=== PATIENT | female | born 1970 | race Caucasian/White ===

== ENCOUNTER 2019-07-19 15:12 | Observation (INO) | payer OTHER ==
[2019-07-19] MEDS ORDERED: MORPHINE SULFATE 4 MG/ML SYRINGE IV STA (15:41)
[2019-07-19] MEDS ORDERED: NITROGLYCERIN-D5W PMX 50 MG in DEXTROSE/WATER 1 250ML.BAG IV STA (15:41)
[2019-07-19] MEDS ORDERED: ASPIRIN 81 MG PO STA (15:41)
[2019-07-19 16:00] LABS: Basophils % (A) 0 %; Eosinophils # (A) 0.2 k/uL (0-0.7); Eosinophils % (A) 2 %; HCT 41.3 % (34.0-46.0); HGB 14.5 gm/dL (11.4-16.0); Lymphocytes # (A) 2.6 k/uL (1.0-4.8); Lymphocytes % (A) 26 %; MCH 29.9 pg (25.0-35.0); MCV 85.3 fL (80.0-100.0); Mean Platelet Volume 7.5; Monocytes # (A) 0.5 k/uL (0-1.0); Monocytes % (A) 5 %; Neutrophils # (A) 6.4 k/uL (1.3-7.7); Neutrophils % (A) 65 %; Platelet Count 233 k/uL (150-450); RBC 4.84 m/uL (3.80-5.40); RDW 12.6 % (11.5-15.5); WBC 9.8 k/uL (3.8-10.6)
[2019-07-19 16:09] LABS: ALT 23 U/L (4-34); AST 31 U/L (14-36); African American GFR (CKD) >90 (>60 ml/min/1.73 sqM); Albumin 4.9 g/dL (3.5-5.0); Alkaline Phosphatase 86 U/L (38-126); Anion Gap 10 mmol/L; Blood Urea Nitrogen 8 mg/dL (7-17); Calcium 9.5 mg/dL (8.4-10.2); Carbon Dioxide 21 mmol/L (22-30); Chloride 108 mmol/L (98-107); Glucose 104 mg/dL (74-99); Magnesium 1.8 mg/dL (1.6-2.3); Non-African American GFR(CKD) >90 (>60 ml/min/1.73 sqM); Potassium 4.1 mmol/L (3.5-5.1); Sodium 139 mmol/L (137-145); Total Bilirubin 0.6 mg/dL (0.2-1.3); Total Protein 7.9 g/dL (6.3-8.2)
--- NOTE | 2019-07-19 16:25 | XR ---
EXAMINATION TYPE: XR chest 2V DATE OF EXAM: 07/19/2019 COMPARISON: NONE HISTORY: Chest pain and hypertension. Shortness of breath. TECHNIQUE: Frontal and lateral views of the chest are obtained. FINDINGS: There is no focal air space opacity, pleural effusion, or pneumothorax seen. The cardiac silhouette size is within normal limits. The osseous structures are intact. Mild multilevel degener ative change of the spine. IMPRESSION: No acute cardiopulmonary process.
--- NOTE | 2019-07-19 16:36 | ED ---
Chest Pain HPI - General Chief Complaint: Chest Pain Stated Complaint: chest pain Time Seen by Provider: 07/19/19 15:15 Source: patient Mode of arrival: wheelchair Limitations: no limitations - History of Present Illness Initial Comments: The patient is a 48-year-old female with past medical history of coronary artery disease who presents to the emergency department with reported chest pain. She states the pain has been intermittent since last night. It is located over the left side of her chest and radiates to her left jaw. States the pain is very similar to when she had a heart attack in 2014 and 2018. A prescription for nitro. States that she took a nitro last night and it did improve her symptoms. She then awoke this morning and the pain hasn't reoccurred. She denies it as a ripping or tearing sensation to her back. No fevers or chills. Admits to nausea without vomiting. Also has diaphoresis. Reports that her pain is provoked upon ambulation and exertion. Has not taken any nitro today. She normally sees a mangle feeder out of [facility]. Last cath was in 2018 for which she had 3 stents placed. 2 were in her circumflex and 1 was put in her RCA. Previously had one stent in her RCA from 2013. Her mangle feeder is Dr. Sanchez who is retiring. She denies any lower extremity edema. No calf pain or swelling. No history of congestive heart failure. Denies a history of DVT or PE. Currently takes Plavix. Denies any missed doses. No fevers or chills. There are no other alleviating, precipitating or modifying factors - Related Data Home Medications Medication Instructions Recorded Confirmed Aspirin EC [Ecotrin Low Dose] 81 mg PO DAILY 07/19/19 07/19/19 Buta/APAP/Caf/Cod 81-739-62-30 1 cap PO Q4H PRN 07/19/19 07/19/19 [Fioricet w/Cod 90-494-86-30MG] Clopidogrel [Plavix] 75 mg PO DAILY 07/19/19 07/19/19 Dicyclomine [Bentyl] 20 mg PO ACHS 07/19/19 07/19/19 Pantoprazole Sodium [Protonix] 40 mg PO BID 07/19/19 07/19/19 Previous Rx's Medication Instructions Recorded Atorvastatin [Lipitor] 80 mg PO HS #30 tab 07/21/19 Lisinopril [Zestril] 5 mg PO DAILY #30 tab 07/21/19 Metoprolol Succinate (ER) [Toprol 12.5 mg PO DAILY #30 tab.er.24h 07/21/19 XL] Nicotine 21Mg/24Hr Patch [Habitrol] 1 patch TRANSDERM HS #30 patch 07/21/19 Nitroglycerin Sl Tabs [Nitrostat] 0.4 mg SUBLINGUAL Q5M PRN #25 tab 07/21/19 Allergies Allergy/AdvReac Type Severity Reaction Status Date / Time No Known Allergies Allergy Verified 07/19/19 18:54 Review of Systems ROS Statement: Those systems with pertinent positive or pertinent negative responses have been documented in the HPI. ROS Other: All systems not noted in ROS Statement are negative. EKG Findings - EKG Comments: EKG Findings:: EKG demonstrates a normal sinus rhythm with a ventricular rate of 73. WA interval 160. QRS 92. QTC of 436. Q wave in lead 3. No acute ST segment elevations or depressions. Past Medical History Past Medical History: Myocardial Infarction ([place]) Additional Past Medical History / Comment(s): valve regurgitation. History of Any Multi-Drug Resistant Organisms: None Reported Past Surgical History: Heart Catheterization With Stent Past Psychological History: No Psychological Hx Reported Smoking Status: Current every day smoker Past Alcohol Use History: None Reported Past Drug Use History: None Reported General Exam Limitations: no limitations General appearance: alert, in no apparent distress Head exam: Present: atraumatic, normocephalic, normal inspection Eye exam: Present: normal appearance, PERRL, EOMI. Absent: scleral icterus, conjunctival injection, periorbital swelling ENT exam: Present: normal exam, mucous membranes moist Neck exam: Present: normal inspection. Absent: tenderness, meningismus, lymphadenopathy Respiratory exam: Present: normal lung sounds bilaterally. Absent: respiratory distress, wheezes, rales, rhonchi, stridor Cardiovascular Exam: Present: regular rate, normal rhythm, normal heart sounds. Absent: systolic murmur, diastolic murmur, rubs, gallop, clicks GI/Abdominal exam: Present: soft, normal bowel sounds. Absent: distended, tenderness, guarding, rebound, rigid Extremities exam: Present: normal inspection, full ROM, normal capillary refill. Absent: tenderness, pedal edema, joint swelling, calf tenderness Back exam: Present: normal inspection Neurological exam: Present: alert, oriented X3, CN II-XII intact Psychiatric exam: Present: normal affect, normal mood Skin exam: Present: warm, dry, intact, normal color. Absent: rash Course Vital Signs 07/19/19 07/19/19 07/19/19 15:13 15:38 15:40 Temperature 98.1 F Pulse Rate 80 Pulse Rate [ [employer] ] Respiratory 18 Rate Blood Pressure 182/98 Blood Pressure [Left Arm] O2 Sat by Pulse 100 99 99 Oximetry 07/19/19 07/19/19 07/19/19 15:50 16:00 16:10 Temperature Pulse Rate 77 67 64 Pulse Rate [ [employer] ] Respiratory 21 25 H 33 H Rate Blood Pressure Blood Pressure [Left Arm] O2 Sat by Pulse 98 98 99 Oximetry 07/19/19 07/19/19 07/19/19 16:23 16:30 16:40 Temperature Pulse Rate 73 71 65 Pulse Rate [ [employer] ] Respiratory 22 27 H 19 Rate Blood Pressure Blood Pressure [Left Arm] O2 Sat by Pulse 100 98 99 Oximetry 07/19/19 07/19/19 07/19/19 16:50 17:00 17:10 Temperature Pulse Rate 63 56 L 58 L Pulse Rate [ [employer] ] Respiratory 28 H 17 19 Rate Blood Pressure 161/87 161/87 144/76 Blood Pressure [Left Arm] O2 Sat by Pulse 99 98 Oximetry 07/19/19 07/19/19 07/19/19 17:20 17:30 17:44 Temperature 98.2 F Pulse Rate 73 54 L Pulse Rate [ 64 [employer] ] Respiratory 22 20 18 Rate Blood Pressure 144/76 144/76 Blood Pressure 117/55 [Left Arm] O2 Sat by Pulse 98 92 L 95 Oximetry 07/19/19 17:46 Temperature Pulse Rate Pulse Rate [ 58 L [employer] ] Respiratory Rate Blood Pressure Blood Pressure [Left Arm] O2 Sat by Pulse Oximetry Chest Pain MDM - MDM Upon arrival the patient is placed into room 2. A thorough history and physical exam was performed. Peripheral IV was established. The patient was started on a nitro drip. She is given informal grams of morphine as well. Laboratory studies were conducted. A 12-lead EKG demonstrates no acute EKG changes compared to her previous. Laboratory studies demonstrates a negative first troponin. BNP is 46. Chest x-ray demonstrates no acute cardiac process. The patient was reevaluated and states that her pain has improved on the nitro drip. She currently remains on 5 mcg/min. She reports that her pain has improved to a 3 out of 10. As I am concerned for unstable angina I did initiate the patient on a heparin drip. I did recommend admission in order to trend her troponins have a cardiology consultation. The patient agreed to this area call discuss case with Dr. Adamson who accepted admission. The patient is currently awaiting a bed on the floor Critical Care Time Critical Care Time: Yes Critical Care Time: 35 minutes Disposition Clinical Impression: Chest pain, History of ASCVD, Unstable angina Disposition: ADMITTED IP TO THIS [facility] Condition: Stable Is patient prescribed a controlled substance at d/c from ED?: No Decision to Admit Reason: Admit from EC Decision Date: 07/19/19 Decision Time: 17:03
[2019-07-19] MEDS ORDERED: HEPARIN SODIUM,PORCINE 5,000 UNIT/ML 1 ML VIAL IV ONE (17:02)
[2019-07-19] MEDS ORDERED: HEPARIN SODIUM,PORCINE 5,000 UNIT/ML 1 ML VIAL IV PRN (17:02)
[2019-07-19] MEDS ORDERED: NALOXONE 0.4 MG/ML 1 ML VIAL IV PRN (17:04)
[2019-07-19] MEDS ORDERED: HEPARIN SOD,PORK IN 0.45% NACL 25,000 UNIT in 0.45% NACL 1 250ML.BAG IV SCH (17:15)
[2019-07-19 18:11] LABS: INR 0.9 (<1.2); Partial Thromboplastin Time 21.9 sec (22.0-30.0); Prothrombin Time 9.6 sec (9.0-12.0)
[2019-07-19] MEDS: ATORVASTATIN 40 MG TAB PO SCH (20:18)
[2019-07-19] MEDS: DICYCLOMINE 20 MG TAB PO SCH (20:18)
[2019-07-19] MEDS: PANTOPRAZOLE 40 MG TABLET PO SCH (20:18)
--- NOTE | 2019-07-19 20:42 | P.HPIM ---
History of Present Illness H&P Date: 07/19/19 Chief Complaint: Chest pain History of presenting complaint: This is a pleasant [address] Axel Abrams. 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 Patient had 3 stents placed in 2018 and in 2013. Chronic stable medical conditions include hyperlipidemia, peptic ulcer disease, GERD, bowel spasms. Patient has continued to smoke. Last night patient is started off with the discomfort across the chest and also feeling twinges of pain. Also developed nausea lightheadedness. 2. Nitroglycerin the pain subsided. This morning again had a similar mixture of symptoms. And presented here with a diagnosis of unstable angina. In the ER patient's been IV heparin and nitro drip. Initial troponin was negative Review of systems: GEN.: Tired EYES: None HEENT: Headache after nitroglycerin drip NECK: None RESPIRATORY: As above CARDIOVASCULAR: As above GASTROINTESTINAL: Heartburn GENITOURINARY: None MUSCULOSKELETAL: None LYMPHATICS: None HEMATOLOGICAL: None PSYCHIATRY: None NEUROLOGICAL: None Past medical history to include: Coronary artery disease with 3 stents in 2018 and before that in 2013, hyperlipidemia, peptic ulcer disease, GERD, bowel spasms, valve regurgitation Social history: Lives with her mother and brother. 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 Denies use of any dictation drugs or alcohol. Does smoke less than a pack a day for over 35 years Family history: Reviewed, noncontributory to presentation Physical examination: VITAL SIGNS: 98.1, 80, 18, blood pressure, 182/98, 100% on room air GENERAL: BMI 31.8, laying in bed slightly anxious. EYES: Pupils equal. Conjunctiva normal. HEENT: External appearance of nose and ears normal, oral cavity grossly normal. NECK: JVD not raised; masses not palpable. HEART: First and second heart sounds are normal; no edema. LUNGS: Respiratory rate normal; slightly decreased breath sounds. ABDOMEN: Soft, nontender, liver spleen not palpable, no masses palpable. PSYCH: Alert and oriented x3; mood and affect but anxiousl. NEUROLOGICAL: Cranial nerves grossly intact; no facial asymmetry, power and sensation grossly intact. LYMPHATICS: No lymph nodes palpable in the axilla and neck INVESTIGATIONS, reviewed in the clinical context: White count 9.8 hemoglobin 14.5 platelets 233 potassium 4.1 creatinine 0.56 troponin I less than 0.012 EKG tracing personally reviewed by me-sinus rhythm with nonspecific ST segment changes Chest x-ray film personally reviewed by me-no infiltrates Assessment: -Unstable angina in a patient with known coronary artery disease, with a presentation similar to her prior episode -Coronary artery disease with 3 stents in 2017 and then in 2013 -Obesity BMI 31.8 -Chronic nicotine dependence patient cigarette smoker -Hypertensive urgency -Hyperlipidemia -Peptic ulcer disease -GERD -Chronic bowel spasms -IV heparin monitoring Plan: Cardiology was consulted. Patient is put on IV nitroglycerin drip and IV heparin. Home medications resumed. Care was discussed with the patient. Nicotine patch. Past Medical History Past Medical History: Myocardial Infarction ([place]) Additional Past Medical History / Comment(s): valve regurgitation. Last Myocardial Infarction Date:: 2017 History of Any Multi-Drug Resistant Organisms: None Reported Past Surgical History: Section, Heart Catheterization With Stent, Hysterectomy Date of Last Stent Placement:: unknown Past Psychological History: No Psychological Hx Reported Smoking Status: Current every day smoker Past Alcohol Use History: None Reported Past Drug Use History: None Reported Medications and Allergies Home Medications Medication Instructions Recorded Confirmed Type Aspirin EC [Ecotrin Low Dose] 81 mg PO DAILY 07/19/19 07/19/19 History Atorvastatin [Lipitor] 40 mg PO HS 07/19/19 07/19/19 History Buta/APAP/Caf/Cod 24-954-12-30 1 cap PO Q4H PRN 07/19/19 07/19/19 History [Fioricet w/Cod 47-688-34-30MG] Clopidogrel [Plavix] 75 mg PO DAILY 07/19/19 07/19/19 History Dicyclomine [Bentyl] 20 mg PO ACHS 07/19/19 07/19/19 History Nitroglycerin Sl Tabs [Nitrostat] 0.4 mg SUBLINGUAL Q5M PRN 07/19/19 07/19/19 History Pantoprazole Sodium [Protonix] 40 mg PO BID 07/19/19 07/19/19 History Allergies Allergy/AdvReac Type Severity Reaction Status Date / Time No Known Allergies Allergy Verified 07/19/19 18:54 Physical Exam Vitals: Vital Signs Temp Pulse Pulse Resp BP BP Pulse Ox 07/19/19 19:21 98 F 66 18 129/57 98 07/19/19 18:17 98.1 F 54 L 20 144/76 92 L 07/19/19 17:46 58 L 07/19/19 17:44 98.2 F 64 18 117/55 95 07/19/19 17:30 54 L 20 144/76 92 L 07/19/19 17:20 73 22 144/76 98 07/19/19 17:10 58 L 19 144/76 98 07/19/19 17:00 56 L 17 161/87 07/19/19 16:50 63 28 H 161/87 99 07/19/19 16:40 65 19 99 07/19/19 16:30 71 27 H 98 07/19/19 16:23 73 22 100 07/19/19 16:10 64 33 H 99 07/19/19 16:00 67 25 H 98 07/19/19 15:50 77 21 98 07/19/19 15:40 99 07/19/19 15:38 99 07/19/19 15:13 98.1 F 80 18 182/98 100 Intake and Output 07/19/19 07/19/19 07/19/19 06:59 14:59 22:59 Other: Weight 83.915 kg Results CBC & Chem 7: 07/19/19 15:26 07/19/19 15:51 Labs: Abnormal Lab Results - Last 24 Hours (Table) 07/19/19 07/19/19 Range/Units 15:51 17:35 APTT 21.9 L (22.0-30.0) sec Chloride 108 H (98-107) mmol/L Carbon Dioxide 21 L (22-30) mmol/L Glucose 104 H (74-99) mg/dL
[2019-07-19] MEDS: BUTA/APAP/CAF/COD 50-325-40-30 CAP PO PRN (20:58)
[2019-07-19] MEDS: NICOTINE 21MG/24HR PATCH TRANSDERM SCH (23:06)
[2019-07-20] MEDS: DICYCLOMINE 20 MG TAB PO SCH ×4 (06:24→20:27)
[2019-07-20] MEDS: PANTOPRAZOLE 40 MG TABLET PO SCH ×2 (06:25→17:44)
[2019-07-20 06:27] LABS: Basophils % (A) 1 %; Eosinophils # (A) 0.2 k/uL (0-0.7); Eosinophils % (A) 2 %; HCT 38.6 % (34.0-46.0); HGB 13.2 gm/dL (11.4-16.0); Lymphocytes # (A) 3.1 k/uL (1.0-4.8); Lymphocytes % (A) 35 %; MCH 29.6 pg (25.0-35.0); MCHC 34.1 g/dL (31.0-37.0); MCV 86.9 fL (80.0-100.0); Mean Platelet Volume 7.4; Monocytes # (A) 0.5 k/uL (0-1.0); Monocytes % (A) 5 %; Neutrophils % (A) 56 %; Platelet Count 176 k/uL (150-450); RBC 4.44 m/uL (3.80-5.40); RDW 12.6 % (11.5-15.5)
[2019-07-20 06:35] LABS: INR 0.9 (<1.2); Partial Thromboplastin Time 55.2 sec (22.0-30.0); Prothrombin Time 9.7 sec (9.0-12.0)
[2019-07-20 07:28] LABS: African American GFR (CKD) >90 (>60 ml/min/1.73 sqM); Anion Gap 8 mmol/L; Blood Urea Nitrogen 14 mg/dL (7-17); Calcium 8.9 mg/dL (8.4-10.2); Carbon Dioxide 22 mmol/L (22-30); Chloride 108 mmol/L (98-107); Glucose 104 mg/dL (74-99); Non-African American GFR(CKD) >90 (>60 ml/min/1.73 sqM); Potassium 4.4 mmol/L (3.5-5.1); Sodium 138 mmol/L (137-145)
[2019-07-20] MEDS: BUTA/APAP/CAF/COD 50-325-40-30 CAP PO PRN ×2 (08:01→20:27)
--- NOTE | 2019-07-20 08:40 | P.CRDCN ---
History of Present Illness Consult date: 07/20/19 Requesting physician: Boris Adamson Consult reason: chest pain Chief complaint: Chest pain History of present illness: This is a 48 year old female with known history of coronary artery disease, she had a myocardial infarction in 2013 at which time she underwent RCA stenting, in 2018 she had a subsequent myocardial infarction and at that time underwent successful percutaneous transluminal coronary artery angioplasty with stenting of the circumflex artery. She has history of hyperlipidemia, hypertension, strong family history of premature coronary artery disease, and she continues to smoke a half a pack of cigarettes per day. She presents to the hospital on this admission with symptoms of midsternal chest tightness with associated shortness of breath. She also states that she gets intermittent poking pains in the chest. Patient does have a history of migraines and this m orning is complaining of a migraine headache, at this present time her chest pain has dissipated. EKG shows a normal sinus rhythm with nonspecific ST-T wave changes. Chest x-ray does not reveal any acute cardiopulmonary process. Blood pressure 146/80 with a heart rate in the 60s, 94% on room air. White blood cell count 9.0, hemoglobin 13.2, platelet count 176. Sodium 138, potassium 4.4, BUN 14, creatinine 0.6, magnesium 1.8. Troponins negative 3. Past Medical History Past Medical History: Myocardial Infarction ([place]) Additional Past Medical History / Comment(s): valve regurgitation. Last Myocardial Infarction Date:: 2017 History of Any Multi-Drug Resistant Organisms: None Reported Past Surgical History: Section, Heart Catheterization With Stent, Hysterectomy Date of Last Stent Placement:: unknown Past Psychological History: No Psychological Hx Reported Smoking Status: Current every day smoker Past Alcohol Use History: None Reported Past Drug Use History: None Reported Medications and Allergies Home Medications Medication Instructions Recorded Confirmed Type Aspirin EC [Ecotrin Low Dose] 81 mg PO DAILY 07/19/19 07/19/19 History Atorvastatin [Lipitor] 40 mg PO HS 07/19/19 07/19/19 History Buta/APAP/Caf/Cod 29-346-37-30 1 cap PO Q4H PRN 07/19/19 07/19/19 History [Fioricet w/Cod 10-610-38-30MG] Clopidogrel [Plavix] 75 mg PO DAILY 07/19/19 07/19/19 History Dicyclomine [Bentyl] 20 mg PO ACHS 07/19/19 07/19/19 History Nitroglycerin Sl Tabs [Nitrostat] 0.4 mg SUBLINGUAL Q5M PRN 07/19/19 07/19/19 History Pantoprazole Sodium [Protonix] 40 mg PO BID 07/19/19 07/19/19 History Allergies Allergy/AdvReac Type Severity Reaction Status Date / Time No Known Allergies Allergy Verified 07/19/19 18:54 Physical Exam Vitals: Vital Signs Temp Pulse Pulse Resp BP BP Pulse Ox 07/20/19 04:00 98.1 F 69 18 147/82 94 L 07/20/19 00:00 97.9 F 67 18 111/57 07/19/19 23:00 66 18 07/19/19 20:00 98.2 F 64 18 117/55 07/19/19 19:21 98 F 66 18 129/57 98 07/19/19 18:17 98.1 F 54 L 20 144/76 92 L 07/19/19 17:46 58 L 07/19/19 17:44 98.2 F 64 18 117/55 95 07/19/19 17:30 54 L 20 144/76 92 L 07/19/19 17:20 73 22 144/76 98 07/19/19 17:10 58 L 19 144/76 98 07/19/19 17:00 56 L 17 161/87 07/19/19 16:50 63 28 H 161/87 99 07/19/19 16:40 65 19 99 07/19/19 16:30 71 27 H 98 07/19/19 16:23 73 22 100 07/19/19 16:10 64 33 H 99 07/19/19 16:00 67 25 H 98 07/19/19 15:50 77 21 98 07/19/19 15:40 99 07/19/19 15:38 99 07/19/19 15:13 98.1 F 80 18 182/98 100 Intake and Output 07/19/19 07/20/19 07/20/19 22:59 06:59 14:59 Intake Total 177.473 0 Balance 177.473 0 Intake: Intake, IV Titration 57.473 Amount Heparin Sod,Pork in 0.45% 45.473 NaCl 25,000 unit In 0.45 % NaCl 1 250ml.bag @ 11. 91 UNITS/KG/HR 9.994 mls/ hr IV .Q24H NNAMDI Rx#: [id number] Nitroglycerin-D5w Pmx 50 12 mg In Dextrose/Water 1 250ml.bag @ 5 MCG/MIN 1.5 mls/hr IV .Q24H STA Rx#: [id number] Oral 120 0 Other: Voiding Method Toilet Toilet # Voids 2 Weight 83.915 kg 84 kg PHYSICAL EXAMINATION: GENERAL: 88-year-old female in no acute distress at the time of my examination HEENT: Head is atraumatic, normocephalic. Pupils equal, round. Sclera anicteric. Conjunctiva are clear. Mucous membranes of the mouth are moist. Neck is supple. There is no elevated jugular venous pressure. No carotid bruit is heard. HEART EXAMINATION: Heart S1 S2 1 systolic murmur is heard CHEST EXAMINATION: Lungs reveal some fine expiratory wheezes ABDOMEN: Soft, nontender. Bowel sounds are heard. No organomegaly noted. EXTREMITIES: 2+ peripheral pulses with no evidence of peripheral edema and no calf tenderness noted. NEUROLOGIC patient is awake, alert and oriented 3 . Complaining of a headache this morning . Results 07/20/19 06:04 07/20/19 06:04 Cardiac Enzymes 07/19/19 07/19/19 07/19/19 Range/Units 15:51 15:51 23:06 AST 31 (14-36) U/L Troponin I <0.012 <0.012 (0.000-0.034) ng/mL 07/20/19 Range/Units 03:30 AST (14-36) U/L Troponin I <0.012 (0.000-0.034) ng/mL Coagulation 07/19/19 07/19/19 07/20/19 Range/Units 17:35 23:06 06:04 PT 9.6 9.7 (9.0-12.0) sec APTT 21.9 L 33.4 H 55.2 H (22.0-30.0) sec CBC 07/19/19 07/20/19 Range/Units 15:26 06:04 WBC 9.8 9.0 (3.8-10.6) k/uL RBC 4.84 4.44 (3.80-5.40) m/uL Hgb 14.5 13.2 (11.4-16.0) gm/dL Hct 41.3 38.6 (34.0-46.0) % Plt Count 233 176 (150-450) k/uL Comprehensive Metabolic Panel 07/19/19 07/20/19 Range/Units 15:51 06:04 Sodium 139 138 (137-145) mmol/L Potassium 4.1 4.4 (3.5-5.1) mmol/L Chloride 108 H 108 H (98-107) mmol/L Carbon Dioxide 21 L 22 (22-30) mmol/L BUN 8 14 (7-17) mg/dL Creatinine 0.56 0.67 (0.52-1.04) mg/dL Glucose 104 H 104 H (74-99) mg/dL Calcium 9.5 8.9 (8.4-10.2) mg/dL AST 31 (14-36) U/L ALT 23 (4-34) U/L Alkaline Phosphatase 86 (38-126) U/L Total Protein 7.9 (6.3-8.2) g/dL Albumin 4.9 (3.5-5.0) g/dL Current Medications Generic Name Dose Route Start Last Admin Trade Name Freq PRN Reason Stop Dose Admin Acetam/Butalbital/Caffeine/Codeine 1 each 07/19/19 19:13 07/20/19 08:01 Fioricet W/Codeine PO 1 each Q4H PRN Administration Migraine Headache Atorvastatin Calcium 40 mg 07/19/19 21:00 07/19/19 20:18 Lipitor PO 40 mg HS NNAMDI Administration Clopidogrel Bisulfate 75 mg 07/20/19 09:00 Plavix PO DAILY NNAMDI Dicyclomine HCl 20 mg 07/19/19 21:00 07/20/19 06:24 Bentyl PO 20 mg ACHS NNAMDI Administration Heparin Sodium (Porcine) 0 unit 07/19/19 17:02 Heparin IV PER PROTOCOL PRN Low PTT Protocol Nitroglycerin/Dextrose 50 mg/ 250 mls @ 1.5 mls/hr 07/19/19 15:41 07/19/19 16:38 IV Solution IV 07/20/19 15:40 5 mcg/min .Q24H STA 1.5 mls/hr Administration Protocol 5 MCG/MIN Heparin Sodium/Sodium Chloride 250 mls @ 9.994 mls/hr 07/19/19 17:15 07/20/19 00:08 25,000 unit/ Sodium Chloride IV 15 units/kg/hr .Q24H NNAMDI 12.587 mls/hr Titration Protocol 11.91 UNITS/KG/HR Naloxone HCl 0.2 mg 07/19/19 17:04 Narcan IV Q2M PRN Opioid Reversal Nicotine 1 patch 07/19/19 21:00 07/19/19 23:06 Habitrol 21mg/24hr Patch TRANSDERM Not Given HS NNAMDI Pantoprazole Sodium 40 mg 07/19/19 21:00 07/20/19 06:25 Protonix PO 40 mg AC-BID NNAMDI Administration Intake and Output 07/19/19 07/20/19 07/20/19 22:59 06:59 14:59 Intake Total 177.473 0 Balance 177.473 0 Intake: Intake, IV Titration 57.473 Amount Heparin Sod,Pork in 0.45% 45.473 NaCl 25,000 unit In 0.45 % NaCl 1 250ml.bag @ 11. 91 UNITS/KG/HR 9.994 mls/ hr IV .Q24H NNAMDI Rx#: [id number] Nitroglycerin-D5w Pmx 50 12 mg In Dextrose/Water 1 250ml.bag @ 5 MCG/MIN 1.5 mls/hr IV .Q24H STA Rx#: [id number] Oral 120 0 Other: Voiding Method Toilet Toilet # Voids 2 Weight 83.915 kg 84 kg 07/20/19 06:04 07/20/19 06:04 EKG Interpretations (text) EKG shows a normal sinus rhythm with no acute changes. Assessment and Plan Plan: Assessment and plan #1 symptoms of chest tightness with associated shortness of breath, possible unstable angina. EKG shows normal sinus rhythm with no acute changes. Troponins negative 3. #2 known history of coronary artery disease with prior stenting of the circumflex and RCA #3 nicotine dependence #4 hyperlipidemia #5 strong family history of premature coronary artery disease #6 history of migraine headaches #7 GERD Plan We will obtain an echocardiogram with Doppler study, start the patient on an aspirin daily, continue Plavix, Lipitor, discontinue the nitroglycerin drip secondary to severe headache this morning, if the blood pressure and heart rate tolerate, we will start the patient on a low-dose beta megan. Patient has been advised to undergo cardiac catheterization, the risks and the benefits were explained to the patient in detail and she is willing to proceed. Further recommendations will be based on those findings and the patient's clinical course. DNP note has been reviewed, I agree with a documented findings and plan of care. Patient was seen and examined.
[2019-07-20] MEDS ORDERED: ASPIRIN 325 MG TAB PO STA ×2 (09:42→09:51)
[2019-07-20] MEDS ORDERED: NITROGLYCERIN SL TABS 0.4 MG TAB SUBLINGUAL PRN ×2 (09:51→11:41)
[2019-07-20] MEDS ORDERED: ALPRAZolam 0.25 MG TAB PO PRN (09:51)
[2019-07-20] MEDS ORDERED: SODIUM CHLORIDE 0.9% 1,000 ML in EMPTY BAG 1 BAG IV ONE (09:51)
[2019-07-20] MEDS ORDERED: ALPRAZolam 0.5 MG TAB PO PRN (09:51)
[2019-07-20] MEDS ORDERED: ATORVASTATIN 80 MG TAB PO STA (09:51)
[2019-07-20] MEDS: METOPROLOL SUCCINATE (ER) 25 MG TAB.ER.24H PO SCH (10:14)
[2019-07-20] MEDS: CLOPIDOGREL 75 MG TAB PO SCH (10:14)
[2019-07-20] MEDS: ASPIRIN 81 MG PO SCH (10:15)
[2019-07-20] MEDS ORDERED: MIDAZOLAM 2 MG/2 ML VIAL IV ONE (11:00)
[2019-07-20] MEDS ORDERED: LIDOCAINE 1% INJ 10MG/ML (20 ML MDV) SQ ONE (11:05)
[2019-07-20] MEDS ORDERED: MIDAZOLAM 2 MG/2 ML VIAL IVP ONE (11:07)
[2019-07-20] MEDS: fentaNYL (PF) 50 MCG/ML 2 ML AMP IV ONE ×2 (11:07→11:53)
[2019-07-20] MEDS ORDERED: IV FLUID CONTINUATION 500 ML IV ONE (11:08)
[2019-07-20] MEDS ORDERED: BIVALIRUDIN 250 MG in SODIUM CHLORIDE 0.9% 50 ML IV ONE (11:19)
[2019-07-20] MEDS ORDERED: BIVALIRUDIN BOLUS 250 MG/50 ML IV ONE (11:19)
[2019-07-20] MEDS ORDERED: CLOPIDOGREL 75 MG TAB PO ONE (11:21)
[2019-07-20] MEDS ORDERED: IOPAMIDOL-370 125ML BTL INJ ONE (11:33)
[2019-07-20] MEDS ORDERED: NITROGLYCERIN SL TABS 0.4 MG TAB SUBLINGUAL ONE (11:36)
[2019-07-20] MEDS ORDERED: ATROPINE SULFATE 0.1 MG/ML 10ML SYRINGE IV PRN (11:41)
[2019-07-20] MEDS ORDERED: MAG HYDROX/AL HYDROX/SIMETH 30 ML CUP PO PRN (11:41)
[2019-07-20] MEDS ORDERED: ZOLPIDEM 5 MG TAB PO PRN (11:41)
[2019-07-20] MEDS ORDERED: RX INFO: IV CONTRAST WAS GIVEN 1 EACH MISC MISCELLANE PRN (11:41)
[2019-07-20] MEDS ORDERED: SODIUM CHLORIDE 0.9% 1,000 ML IV SCH (11:45)
--- NOTE | 2019-07-20 11:52 | P.PCN ---
Date of Procedure: 07/20/19 Operative Findings: CARDIAC CATHETERIZATION AND PERCUTANEOUS CORONARY INTERVENTION PERFORMING PHYSICIAN: Sheng Charles MD, RPVI PROCEDURE PERFORMED: 1. Selective right and left coronary angiogram 2. Left heart catheterization 3. Successful stenting of the ostial left circumflex (LCx) using 3.5 x 15 mm Xience SOFIA with an excellent angiographic results. INDICATION: This is a very pleasant 48-year-old female patient who used to be seen by a pay agent out of the town presented to the hospital with chest discomfort and without for acute coronary event. She was seen by Dr. VC Gerard who recommended proceeding with coronary angiogram giving her symptoms which are suggestive of angina. The patient is known to have coronary artery disease and prior stenting of the RCA and LCx. COMPLICATION: None APPROACH: Right common femoral artery LEVEL OF SEDATION: Moderate with a sedation duration of 39 minutes PROCEDURE DESCRIPTION: After obtaining an informed consent, the patient was brought to cardiac director of cardiac cath lab. Local anesthesia was performed using lidocaine subcutaneously. The right common femoral artery was cannulated using Seldinger technique, the guidewire passed easily, following that we advanced a 6 Setswana sheath dilator assembly, the wire and dilator were removed and sheath was flushed. Selective right and left coronary angiogram using a 6-Setswana JR4 and JL catheters. Following that we did left heart catheterization using 6-Setswana pigtail c atheter. After that I did intervene on the LCx. The procedure was completed there was no complication. SELECTIVE CORONARY ANGIOGRAM: The right coronary artery: Is a large caliber vessel and a dominant vessel. The proximal RCA has in-stent restenosis appeared to be in the range of 70%. The mid RCA is a stented and the stent is patent. The RCA distally appeared to be angiographically normal and bifurcates into PDA and PLV branches both appeared to be angiographically normal Left main: Is angiographically normal. Bifurcates into LCx and LAD The left circumflex: Is a large caliber vessel and nondominant vessel. The ostial LCx has a lesion appeared to be in the range of 95% and seems to be in-stent restenosis. The mid LCx appears to be normal. The LCx in the midportion gives rises into the first OM branch which has a critical lesion in its ostium but the artery itself appears to be a small caliber vessel. The distal LCx appears to be angiographically normal. The left anterior descending artery: The proximal LAD appears to have mild disease only. It gives rises into a medium size diagonal branch which seems to have mild disease only. The mid LAD appears to have a lesion in the range of 60-70%. The LAD distally appears to be angiographically normal. HEMODYNAMICS: The LVEDP was 10-12 mmHg without significant gradient across aortic valve PCI OF THE LCX: Anticoagulation was achieved with Angiomax. Subsequently I did engage the left main using JL4 guide. I did wire the LCx using a run-through wire. I did predilatation using 2 5 x 10 mm angiosculp balloon. After that I deployed 3.5 x 15 mm Xience SOFIA where the stent was positioned under fluoroscopy guidance and deployed under 16 alan for 20 seconds. The following angiogram showed an excellent angiographic results and the procedure was completed without any complications CONCLUSION: 1. Severe in-stent restenosis involving the proximal RCA. 2. Critical in-stent restenosis involving the ostial LCx 3. Intermediate to severe disease involving the mid to distal LAD. I did successful stenting of the ostial LCx with an excellent angiographic results POSTPROCEDURE MANAGEMENT: 1. Medical treatment 2. Dual antiplatelet therapy 3. Standard groin care 4. Follow-up with the patient 5. PCI of the RCA
--- NOTE | 2019-07-20 12:06 | ECHOF ---
Referral Reason:assess lvf MEASUREMENTS -------- HEIGHT: 162.6 cm WEIGHT: 83.9 kg BP: IVSd: 1.6 cm (0.6 - 1.1) LVIDd: 3.7 cm (3.9 - 5.3) LVPWd: 1.4 cm (0.6 - 1.1) IVSs: 1.5 cm LVIDs: 2.9 cm LVPWs: 1.9 cm LAESV Index (A-L): 11.29 ml/m Ao Diam: 2.6 cm (2.0 - 3.7) AV Cusp: 2.1 cm (1.5 - 2.6) LA Diam: 2.2 cm (2.7 - 3.8) MV EXCURSION: 15.271 mm (> 18.000) MV EF SLOPE: 89 mm/s (70 - 150) EPSS: 0.9 cm MV E Jose M: 0.98 m/s MV DecT: 252 ms MV A Jose M: 0.78 m/s MV E/A Ratio: 1.24 AR PHT: 701 ms RAP: 15.00 mmHg RVSP: 43.58 mmHg FINDINGS -------- Sinus rhythm. This was a technically good study. The left ventricular size is normal. There is moderate concentric left ventricular hypertrophy. T here is normal global left ventricular contractility. Overall left ventricular systolic function is low-normal with, an EF between 50 - 55 %. The diastolic filling pattern is normal for the age of t he patient 12.98. The right ventricle is normal in size. The left atrial size is normal. Normal LA size by volume 22+/-6 ml/m2. The right atrial size is normal. The aortic valve is trileaflet and appears structurally normal. There is moderate aortic regurgitat ion. The mitral valve is normal. Mild mitral regurgitation is present. The tricuspid valve appears structurally normal. Mild tricuspid regurgitation present. There is m ild pulmonary hypertension. The right ventricular systolic pressure, as measured by Doppler, is 43. 58mmHg. There is no pulmonic regurgitation present. The aortic root size is normal. The inferior vena cava is mildly dilated. There is a trivial pericardial effusion present. CONCLUSIONS -------- 1. Sinus rhythm. 2. This was a technically good study. 3. The left ventricular size is normal. 4. There is moderate concentric left ventricular hypertrophy. 5. Overall left ventricular systolic function is low-normal with, an EF between 50 - 55 %. 6. The diastolic filling pattern is normal for the age of the patient 12.98 7. The right ventricle is normal in size. 8. The left atrial size is normal. 9. Normal LA size by volume 22+/-6 ml/m2. 10. The right atrial size is normal. 11. The aortic valve is trileaflet and appears structurally normal. 12. There is moderate aortic regurgitation. 13. The mitral valve is normal. 14. Mild mitral regurgitation is present. 15. The tricuspid valve appears structurally normal. 16. Mild tricuspid regurgitation present. 17. There is mild pulmonary hypertension. 18. The right ventricular systolic pressure, as measured by Doppler, is 43.58mmHg. 19. There is no pulmonic regurgitation present. 20. The aortic root size is normal. 21. The inferior vena cava is mildly dilated. 22. There is a trivial pericardial effusion present. DIE TECHNICIAN: Andria Stout RDCS
[2019-07-20] MEDS ORDERED: HYDROmorphone 0.5 MG/0.5 ML SYRINGE IVP STA (12:36)
[2019-07-20 13:43] VITALS: BMI 31.8
[2019-07-20] MEDS: NITROGLYCERIN OINT 1 INCH/GM PACKET TOPICAL SCH ×2 (14:24→15:55)
[2019-07-20] MEDS: ATORVASTATIN 40 MG TAB PO SCH (20:27)
[2019-07-20] MEDS: NICOTINE 21MG/24HR PATCH TRANSDERM SCH (22:16)
--- NOTE | 2019-07-20 23:29 | P.PN ---
Progress Note - Text Progress Note Date: 07/20/19 Chief Complaint: Chest pain History of presenting complaint: This is a pleasant [address] Axel Abrams. 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 Patient had 3 stents placed in 2018 and in 2014. Chronic stable medical conditions include hyperlipidemia, peptic ulcer disease, GERD, bowel spasms. Patient has continued to smoke. Last night patient is started off with the discomfort across the chest and also feeling twinges of pain. Also developed nausea lightheadedness. 2. Nitroglycerin the pain subsided. This morning again had a similar mixture of symptoms. And presented here with a diagnosis of unstable angina. In the ER patient's been IV heparin and nitro drip. Initial troponin was negative Admitted with unstable angina. Today-underwent cardiac catheterization. Successful stenting of the ostial left circumflex. Postprocedure no chest pain no shortness of breath. Laying in bed Review of systems: Was done for constitutional, cardiovascular, GI, pulmonary. relevant finding as above Active Medications Acetam/Butalbital/Caffeine/Codeine (Fioricet W/Codeine) 1 each PO Q4H PRN PRN Reason: Migraine Headache Last Admin: 07/20/19 20:27 Dose: 1 each Documented by: Al Hydroxide/Mg Hydroxide (Maalox) 30 ml PO Q4HR PRN PRN Reason: Heartburn Alprazolam (Xanax) 0.25 mg PO Q6HR PRN PRN Reason: Mild Anxiety Alprazolam (Xanax) 0.5 mg PO Q6HR PRN PRN Reason: Moderate Anxiety Last Admin: 07/20/19 17:44 Dose: 0.5 mg Documented by: Aspirin (Aspirin) 81 mg PO DAILY [facility] Last Admin: 07/20/19 10:15 Dose: Not Given Documented by: Atorvastatin Calcium (Lipitor) 40 mg PO HS [facility] Last Admin: 07/20/19 20:27 Dose: 40 mg Documented by: Atropine Sulfate (Atropine) 0.5 mg IV ONCE PRN PRN Reason: Symptomatic Bradycardia Clopidogrel Bisulfate (Plavix) 75 mg PO DAILY [facility] Last Admin: 07/20/19 10:14 Dose: 75 mg Documented by: Dicyclomine HCl (Bentyl) 20 mg PO ACHS [facility] Last Admin: 03/20/20 20:27 Dose: 20 mg Documented by: Heparin Sodium (Porcine) (Heparin) 0 unit IV PER PROTOCOL PRN; Protocol PRN Reason: Low PTT Metoprolol Succinate (Toprol Xl) 12.5 mg PO DAILY [facility] Last Admin: 07/20/19 10:14 Dose: 12.5 mg Documented by: Miscellaneous Information (Rx Info: Iv Contrast Was Given) 1 each MISCELLANE DAILY PRN PRN Reason: Per Protocol Stop: 07/22/19 11:41 Naloxone HCl (Narcan) 0.2 mg IV Q2M PRN PRN Reason: Opioid Reversal Nicotine (Habitrol 21mg/24hr Patch) 1 patch TRANSDERM HS [facility] Last Admin: 07/20/19 22:16 Dose: Not Given Documented by: Nitroglycerin (Nitrostat) 0.4 mg SUBLINGUAL Q5M PRN PRN Reason: Chest Pain Last Admin: 07/20/19 12:19 Dose: 0.4 mg Documented by: Nitroglycerin (Nitrostat) 0.4 mg SUBLINGUAL Q5M PRN PRN Reason: Chest Pain Nitroglycerin (Nitro-Bid Oint) 1 inch TOPICAL Q6HR [facility] Last Admin: 07/20/19 15:55 Dose: Not Given Documented by: Pantoprazole Sodium (Protonix) 40 mg PO AC-BID [facility] Last Admin: 07/20/19 17:44 Dose: 40 mg Documented by: Zolpidem Tartrate (Ambien) 5 mg PO HS PRN PRN Reason: Insomnia Physical examination: VITAL SIGNS: 98.2, 67, 16, blood pressure 128/62, 98% on room air GENERAL: Laying in bed, awake. EYES: Pupils equal. Conjunctiva normal. HEENT: External appearance of nose and ears normal, oral cavity grossly normal. NECK: JVD not raised; masses not palpable. HEART: First and second heart sounds are normal; no edema. LUNGS: Respiratory rate normal; slightly decreased breath sounds. ABDOMEN: Soft, nontender, liver spleen not palpable, no masses palpable. PSYCH: Alert and oriented x3; mood and affect but anxiousl. INVESTIGATIONS, reviewed in the clinical context: White count 19 with 30.2 potassium 4.4 Previous testing White count 9.8 hemoglobin 14.5 platelets 233 potassium 4.1 creatinine 0.56 troponin I less than 0.012-3 EKG tracing personally reviewed by me-sinus rhythm with nonspecific ST segment changes Chest x-ray film personally reviewed by me-no infiltrates Assessment: -Unstable angina in a patient with known coronary artery disease, POA -Cardiac catheterization with a stent to circumflex -Coronary artery disease with 3 stents in 2018 and then in 2014 -Obesity BMI 31.8 -Chronic nicotine dependence patient cigarette smoker -Hypertensive urgency -Hyperlipidemia -Peptic ulcer disease -GERD -Chronic bowel spasms -IV heparin monitoring Plan: Patient is status post coronary stent. Continue current medication treatment plan. Care was discussed the patient.
[2019-07-21] MEDS: NITROGLYCERIN OINT 1 INCH/GM PACKET TOPICAL SCH ×2 (00:51→05:27)
[2019-07-21] MEDS: PANTOPRAZOLE 40 MG TABLET PO SCH (05:25)
[2019-07-21] MEDS: DICYCLOMINE 20 MG TAB PO SCH ×2 (05:25→12:35)
[2019-07-21 06:32] LABS: Basophils % (A) 0 %; Eosinophils # (A) 0.2 k/uL (0-0.7); Eosinophils % (A) 2 %; HCT 37.3 % (34.0-46.0); Lymphocytes # (A) 1.9 k/uL (1.0-4.8); Lymphocytes % (A) 25 %; MCH 30.3 pg (25.0-35.0); MCHC 34.9 g/dL (31.0-37.0); MCV 86.9 fL (80.0-100.0); Mean Platelet Volume 7.9; Monocytes # (A) 0.4 k/uL (0-1.0); Monocytes % (A) 5 %; Neutrophils % (A) 66 %; Platelet Count 180 k/uL (150-450); RBC 4.29 m/uL (3.80-5.40); RDW 12.6 % (11.5-15.5); WBC 7.6 k/uL (3.8-10.6)
[2019-07-21 06:39] LABS: INR 0.9 (<1.2); Partial Thromboplastin Time 24.7 sec (22.0-30.0); Prothrombin Time 9.5 sec (9.0-12.0)
[2019-07-21 06:41] LABS: African American GFR (CKD) >90 (>60 ml/min/1.73 sqM); Non-African American GFR(CKD) >90 (>60 ml/min/1.73 sqM)
[2019-07-21] MEDS: CLOPIDOGREL 75 MG TAB PO SCH (09:20)
[2019-07-21] MEDS: METOPROLOL SUCCINATE (ER) 25 MG TAB.ER.24H PO SCH (09:20)
[2019-07-21] MEDS: ASPIRIN 81 MG PO SCH (09:20)
--- NOTE | 2019-07-21 10:07 | P.PN ---
Subjective Progress Note Date: 07/21/19 This is a 48 year old female with known history of coronary artery disease, she had a myocardial infarction in 2013 at which time she underwent RCA stenting, in 2018 she had a subsequent myocardial infarction and at that time underwent successful percutaneous transluminal coronary artery angioplasty with stenting of the circumflex artery. She has history of hyperlipidemia, hypertension, strong family history of premature coronary artery disease, and she continues to smoke a half a pack of cigarettes per day. She presents to the hospital on this admission with symptoms of midsternal chest tightness with associated shortness of breath. She also states that she gets intermittent poking pains in the chest. Patient does have a history of migraines and this morning is complaining of a migraine headache, at this present time her chest pain has dissipated. EKG shows a normal sinus rhythm with nonspecific ST-T wave changes. Chest x-ray does not reveal any acute cardiopulmonary process. Blood pressure 146/80 with a heart rate in the 60s, 94% on room air. White blood cell count 9.0, hemoglobin 13.2, platelet count 176. Sodium 138, potassium 4.4, BUN 14, creatinine 0.6, magnesium 1.8. Troponins negative 3. 07/21/2019 Patient was taken to the cardiac catheterization lab yesterday where she underwent successful stenting of the ostial left circumflex. Patient was also found to have severe in-stent restenosis involving the proximal RCA, intermediate to severe disease in the mid to distal LAD. She was seen and examined this morning, feels well, denies any chest discomfort or breathing difficulty. Her EKG from this morning shows a normal sinus rhythm with no acute changes. I pressure 130/70 with a heart rate of 50, 97% on room air. White blood cell count 7.6, hemoglobin 13, platelet count 180. Objective - Vital Signs Vital signs: Vital Signs Temp 97.8 F 07/21/19 05:14 Pulse 59 L 07/21/19 05:14 Resp 16 07/21/19 05:14 BP 132/76 07/21/19 05:14 Pulse Ox 97 07/21/19 05:14 Intake & Output 07/20/19 07/21/19 07/21/19 18:59 06:59 18:59 Intake Total 349.227 240 Output Total 400 900 Balance -50.773 -660 Weight 84 kg 94.5 kg Intake: IV 220 Intake, IV Titration 129.227 Amount Heparin Sod,Pork in 0.45% 129.227 NaCl 25,000 unit In 0.45 % NaCl 1 250ml.bag @ 11. 91 UNITS/KG/HR 9.994 mls/ hr IV .Q24H [facility] Rx#: [id number] Oral 0 240 Output: Urine 400 900 Other: Voiding Method Toilet # Voids 1 - Exam PHYSICAL EXAMINATION: GENERAL: 88-year-old female in no acute distress at the time of my examination HEENT: Head is atraumatic, normocephalic. Pupils equal, round. Sclera anicteric. Conjunctiva are clear. Mucous membranes of the mouth are moist. Neck is supple. There is no elevated jugular venous pressure. No carotid bruit is heard. HEART EXAMINATION: Heart S1 S2 1 systolic murmur is heard CHEST EXAMINATION: Lungs reveal some fine expiratory wheezes ABDOMEN: Soft, nontender. Bowel sounds are heard. No organomegaly noted. EXTREMITIES: 2+ peripheral pulses with no evidence of peripheral edema and no calf tenderness noted. Right groin soft, no evidence of any hematoma. NEUROLOGIC patient is awake, alert and oriented 3 . - Labs CBC & Chem 7: 07/21/19 05:41 07/21/19 05:41 Assessment and Plan Plan: Assessment and plan #1 symptoms of chest tightness with associated shortness of breath, possible unstable angina. EKG shows normal sinus rhythm with no acute changes. Troponins negative 3. #2 known history of coronary artery disease with prior stenting of the circumflex and RCA #3 nicotine dependence #4 hyperlipidemia #5 strong family history of premature coronary artery disease #6 history of migraine headaches #7 GERD Plan Status post successful stenting of the ostial circumflex, severe in-stent restenosis involving the proximal RCA, intermediate to severe disease involving the mid to distal LAD. We will increase the Lipitor to 80 mg daily, continue baby aspirin, Plavix, add lisinopril 5 mg daily, and continue metoprolol 12-1/2 mg daily. Patient may be able to be discharged home today from our perspective, we'll make her a follow-up appointment to see Dr. Marks in the office post discharge. DNP note has been reviewed, I agree with a documented findings and plan of care. Patient was seen and examined.
[2019-07-21 10:08] VITALS: TEMP 98.2
[2019-07-21 12:28] VITALS: BP 157/81; PULSE 59; RESP 18
--- NOTE | 2019-07-21 19:45 | P.DS ---
Providers Date of admission: 07/19/19 17:04 Expected date of discharge: 07/21/19 Attending physician: Boris Adamson Consults: 07/19/19 17:05 Consult Physician Urgent Consulting Provider: [facility] Consult Reason/Comments: acute chest pain, possible unstable angina, hx ascad Do you want consulting provider notified?: Yes 07/20/19 11:41 Consult Physician Routine Consulting Provider: [facility] Consult Reason/Comments: Post Interventional patient Do you want consulting provider notified?: Already Contacted Primary care physician: Axel Abrams [facility] Course: Chief Complaint: Chest pain History of presenting complaint: This is a pleasant [address] Axel Abrams. 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 Patient had 3 stents placed in 2018 and in 2013. Chronic stable medical conditions include hyperlipidemia, peptic ulcer disease, GERD, bowel spasms. Patient has continued to smoke. Last night patient is started off with the discomfort across the chest and also feeling twinges of pain. Also developed nausea lightheadedness. 2. Nitroglycerin the pain subsided. This morning again had a similar mixture of symptoms. And presented here with a diagnosis of unstable angina. In the ER patient's been IV heparin and nitro drip. Initial troponin was negative Admitted with unstable angina.cardiac catheterization.-Successful stenting of the ostial left circumflex. Today-no chest pain no shortness of breath. Ambulated Consultation: Dr. Marks from cardiology Physical examination: VITAL SIGNS: 98.2, 56, 16, blood pressure 124/72, 96% on room air GENERAL: Sitting up, comfortable EYES: Pupils equal. Conjunctiva normal. HEENT: External appearance of nose and ears normal, oral cavity grossly normal. NECK: JVD not raised; masses not palpable. HEART: First and second heart sounds are normal; no edema. LUNGS: Respiratory rate normal; slightly decreased breath sounds. ABDOMEN: Soft, nontender, liver spleen not palpable, no masses palpable. PSYCH: Alert and oriented x3; mood and affect but anxiousl. INVESTIGATIONS, reviewed in the clinical context: White count 7.6 hemoglobin 13 creatinine 0.68 Previous testing White count 9.8 hemoglobin 14.5 platelets 233 potassium 4.1 creatinine 0.56 troponin I less than 0.012-3 EKG tracing personally reviewed by me-sinus rhythm with nonspecific ST segment changes Chest x-ray film personally reviewed by me-no infiltrates Assessment: -Unstable angina in a patient with known coronary artery disease, POA -Cardiac catheterization with a stent to circumflex -Coronary artery disease with 3 stents in 2018 and then in 2014 -Obesity BMI 31.8 -Chronic nicotine dependence patient cigarette smoker -Hypertensive urgency -Hyperlipidemia -Peptic ulcer disease -GERD -Chronic bowel spasms -IV heparin monitoring Disposition: Home Patient Condition at Discharge: Stable Plan - Discharge Summary Discharge Rx Participant: No New Discharge Prescriptions: New Nicotine 21Mg/24Hr Patch [Habitrol] 1 patch TRANSDERM HS #30 patch Atorvastatin [Lipitor] 80 mg PO HS #30 tab Metoprolol Succinate (ER) [Toprol XL] 12.5 mg PO DAILY #30 tab.er.24h Lisinopril [Zestril] 5 mg PO DAILY #30 tab Continue Pantoprazole Sodium [Protonix] 40 mg PO BID Dicyclomine [Bentyl] 20 mg PO ACHS Clopidogrel [Plavix] 75 mg PO DAILY [place]/APAP/Caf/Cod [id number] [Fioricet w/Cod 68-304-99-30MG] 1 cap PO Q4H PRN PRN Reason: Migraine Headache Aspirin EC [Ecotrin Low Dose] 81 mg PO DAILY Nitroglycerin Sl Tabs [Nitrostat] 0.4 mg SUBLINGUAL Q5M PRN #25 tab PRN Reason: Chest Pain Discontinued Atorvastatin [Lipitor] 40 mg PO HS Discharge Medication List Aspirin EC [Ecotrin Low Dose] 81 mg PO DAILY 07/19/19 [History] [place]/APAP/Caf/Cod [id number] [Fioricet w/Cod 40-618-41-30MG] 1 cap PO Q4H PRN 07/19/19 [History] Clopidogrel [Plavix] 75 mg PO DAILY 07/19/19 [History] Dicyclomine [Bentyl] 20 mg PO ACHS 07/19/19 [History] Pantoprazole Sodium [Protonix] 40 mg PO BID 07/19/19 [History] Atorvastatin [Lipitor] 80 mg PO HS #30 tab 07/21/19 [Rx] Lisinopril [Zestril] 5 mg PO DAILY #30 tab 07/21/19 [Rx] Metoprolol Succinate (ER) [Toprol XL] 12.5 mg PO DAILY #30 tab.er.24h 07/21/19 [Rx] Nicotine 21Mg/24Hr Patch [Habitrol] 1 patch TRANSDERM HS #30 patch 07/21/19 [Rx] Nitroglycerin Sl Tabs [Nitrostat] 0.4 mg SUBLINGUAL Q5M PRN #25 tab 07/21/19 [Rx] Follow up Appointment(s)/Referral(s): Axel Abrams MD [Primary Care Provider] - 1-2 days (Please call for an appointment) Sheng Charles MD [STAFF PHYSICIAN] - 1 Week (Please call on Tuesday to make follow up appointment. ) Patient Instructions/Handouts: Left Heart Catheterization (DC) Activity/Diet/Wound Care/Special Instructions: post cardiac catheterization instructions-report fever, discharge or bleeding from groin site, numbness or tingling or discoloration in one leg or the other, chest pain-keep puncture site clean and dry, shower daily. No driving for 3 days. Support site with a firm hand when you cough or go up stairs. Discharge Disposition: HOME SELF-CARE
[2019-07-21] MEDS ORDERED: ATORVASTATIN 80 MG TAB PO SCH (21:00)
[2019-07-22] MEDS ORDERED: LISINOPRIL 5 MG TAB PO SCH (09:00)
== END 2019-07-21 13:39 | disposition home or self-care (01) ==
LOC: EC 15:12 → 1SOBS 17:04 → 3SCARD 17:27
PROVIDERS: ADMIT Hospitalist; ATTEND Hospitalist
DX: I25.110 Atherosclerotic heart disease of native coronary artery with unstable angina pectoris (principal); T82.855A Stenosis of coronary artery stent, initial encounter; E66.9 Obesity, unspecified; I16.0 Hypertensive urgency; E78.5 Hyperlipidemia, unspecified; K27.9 Peptic ulcer, site unspecified, unspecified as acute or chronic, without hemorrhage or perforation; K21.9 Gastro-esophageal reflux disease without esophagitis; K58.9 Irritable bowel syndrome, unspecified; I10 Essential (primary) hypertension; G43.909 Migraine, unspecified, not intractable, without status migrainosus; I08.3 Combined rheumatic disorders of mitral, aortic and tricuspid valves; I27.20 Pulmonary hypertension, unspecified; E78.00 Pure hypercholesterolemia, unspecified; I25.2 Old myocardial infarction; F17.210 Nicotine dependence, cigarettes, uncomplicated; Z68.31 Body mass index [BMI] 31.0-31.9, adult; Z95.5 Presence of coronary angioplasty implant and graft; Z98.890 Other specified postprocedural states; Z90.710 Acquired absence of both cervix and uterus; Z79.02 Long term (current) use of antithrombotics/antiplatelets; Z79.82 Long term (current) use of aspirin; Z79.899 Other long term (current) drug therapy; Z82.49 Family history of ischemic heart disease and other diseases of the circulatory system
CPT/HCPCS: 96376; 96366 ×3; 96368 ×2; 93005 ×3; 96365; 96375; 99285; 36415; 93306; 93458; 83880; 80053; 80048; 82565; 83735; 84484 ×2; 85025 ×3; 85610 ×3; 85730 ×3; 71046; C9600; G0378 ×3; C1887; C1769 ×3; C1894; C1725; C1874; J2250; J2270; J1644 ×2; J2001; J3010; J0583; J1170; Q9967

== ENCOUNTER 2019-11-24 22:22 | Inpatient (IN) | payer OTHER ==
--- NOTE | 2019-11-24 22:56 | ED ---
Chest Pain HPI - General Chief Complaint: Chest Pain Stated Complaint: Chest pain Time Seen by Provider: 11/24/19 22:56 Source: patient, family Mode of arrival: wheelchair - History of Present Illness Initial Comments: This patient is a 49-year-old woman with history of previous coronary artery disease status post 5 stent placements. Patient states that she had not been feeling well all day, mainly with which she is describing as migraine type symptoms, but then at around 8:30 PM while she was just sitting, she developed substernal chest pains. She states that it also has felt like she can't quite take a full breath. Patient had been told by her accountancy professor, Dr. Marks, that he would probably be placing a stent for a 70% blockage, so she felt she should be evaluated here. The patient denies any other associated symptoms. MD Complaint: chest pain Onset/Timin -: hour(s) Onset: during rest Pain Location: substernal, left chest Pain Radiation: none Severity: moderate Quality: tightness, aching Consistency: constant Improves With: nothing Worsens With: nothing Anginal Symptoms: dyspnea Treatments Prior to Arrival: none - Related Data Home Medications Medication Instructions Recorded Confirmed Aspirin EC [Ecotrin Low Dose] 81 mg PO DAILY 07/19/19 11/25/19 Buta/APAP/Caf/Cod 25-490-25-30 1 cap PO Q4H PRN 07/19/19 11/25/19 [Fioricet w/Cod 34-862-12-30MG] Clopidogrel [Plavix] 75 mg PO DAILY 07/19/19 11/25/19 Dicyclomine [Bentyl] 20 mg PO DAILY 07/19/19 11/25/19 Pantoprazole Sodium [Protonix] 40 mg PO BID 07/19/19 11/25/19 Dicyclomine [Bentyl] 20 mg PO TID PRN 11/25/19 11/25/19 Ubidecarenone [Co Q-10] 200 mg PO DAILY 11/25/19 11/25/19 Previous Rx's Medication Instructions Recorded Atorvastatin [Lipitor] 80 mg PO HS #30 tab 07/21/19 Metoprolol Succinate (ER) [Toprol 12.5 mg PO DAILY #30 tab.er.24h 07/21/19 XL] Nitroglycerin Sl Tabs [Nitrostat] 0.4 mg SUBLINGUAL Q5M PRN #25 tab 07/21/19 lisinopriL [Zestril] 5 mg PO DAILY #30 tab 07/21/19 Allergies Allergy/AdvReac Type Severity Reaction Status Date / Time No Known Allergies Allergy Verified 11/25/19 08:10 Review of Systems ROS Statement: Those systems with pertinent positive or pertinent negative responses have been documented in the HPI. ROS Other: All systems not noted in ROS Statement are negative. Constitutional: Denies: fever, chills Respiratory: Reports: as per HPI, dyspnea. Denies: cough Cardiovascular: Reports: as per HPI, chest pain. Denies: palpitations, dyspnea on exertion, orthopnea, edema, syncope Gastrointestinal: Denies: abdominal pain, nausea, vomiting, diarrhea, constipation, melena, hematochezia Genitourinary: Denies: dysuria, hematuria Musculoskeletal: Denies: back pain Skin: Denies: rash Neurological: Reports: as per HPI, headache. Denies: weakness, numbness, paresthesias Hematological/Lymphatic: Denies: easy bleeding EKG Findings - EKG Results: EKG: interpreted by CAMILLA, sinus rhythm (Rate 76 bpm), normal axis, normal QRS - Blocks, [place], Hypertrophy, ST Abn: Repolarization changes or abnormalities: nonspecific abnormality, ST segment, and/or T wave Past Medical History Past Medical History: Myocardial Infarction ([place]) Additional Past Medical History / Comment(s): valve regurgitation. Last Myocardial Infarction Date:: 2017 History of Any Multi-Drug Resistant Organisms: None Reported Past Surgical History: Heart Catheterization, Heart Catheterization With Stent Date of Last Stent Placement:: unknown Past Psychological History: No Psychological Hx Reported Smoking Status: Current every day smoker Past Alcohol Use History: None Reported Past Drug Use History: None Reported - Past Family History Mother Family Medical History: Myocardial Infarction ([place]) General Exam General appearance: alert, in no apparent distress Head exam: Present: atraumatic, normocephalic Eye exam: Present: normal appearance. Absent: scleral icterus, conjunctival injection ENT exam: Present: normal oropharynx Neck exam: Present: normal inspection Respiratory exam: Present: normal lung sounds bilaterally. Absent: respiratory distress, wheezes, rales, rhonchi, stridor, chest wall tenderness Cardiovascular Exam: Present: regular rate, normal rhythm, normal heart sounds. Absent: systolic murmur, diastolic murmur, rubs, gallop GI/Abdominal exam: Present: soft. Absent: distended, tenderness, guarding, rebound, rigid, mass Extremities exam: Present: normal inspection, normal capillary refill. Absent: pedal edema, calf tenderness Back exam: Present: normal inspection. Absent: CVA tenderness (R), CVA tenderness (L) Neurological exam: Present: alert Skin exam: Present: warm, dry, intact, normal color. Absent: rash Course Vital Signs 11/24/19 11/24/19 22:29 22:53 Temperature 98.5 F Pulse Rate 82 Respiratory 16 18 Rate Blood Pressure 155/80 O2 Sat by Pulse 95 Oximetry Critical Care Time Critical Care Time: Yes (35 minutes) Disposition Clinical Impression: Chest pain Disposition: ADMITTED IP TO THIS HOSP Condition: Good Is patient prescribed a controlled substance at d/c from ED?: No
--- NOTE | 2019-11-24 23:15 | XR ---
EXAMINATION TYPE: XR chest 2V DATE OF EXAM: 11/24/2019 COMPARISON: 07/19/2019 HISTORY: Chest pain TECHNIQUE: 2 views FINDINGS: Heart and mediastinum are normal. Lungs are clear. Diaphragm is normal. Bony thorax appears normal. IMPRESSION: Normal chest. No change.
[2019-11-24] MEDS ORDERED: MORPHINE SULFATE 4 MG/ML SYRINGE IV STA (23:24)
[2019-11-24 23:25] LABS: Basophils # (A) 0.1 k/uL (0-0.2); Basophils % (A) 1 %; Eosinophils # (A) 0.3 k/uL (0-0.7); Eosinophils % (A) 2 %; HCT 40.5 % (34.0-46.0); HGB 13.6 gm/dL (11.4-16.0); Lymphocytes # (A) 2.8 k/uL (1.0-4.8); Lymphocytes % (A) 24 %; MCHC 33.5 g/dL (31.0-37.0); MCV 86.5 fL (80.0-100.0); Mean Platelet Volume 7.7; Monocytes # (A) 0.6 k/uL (0-1.0); Monocytes % (A) 5 %; Neutrophils # (A) 7.9 k/uL (1.3-7.7); Neutrophils % (A) 67 %; Platelet Count 210 k/uL (150-450); RBC 4.68 m/uL (3.80-5.40); RDW 12.5 % (11.5-15.5); WBC 11.8 k/uL (3.8-10.6)
[2019-11-24] MEDS ORDERED: ASPIRIN 81 MG PO STA (23:25)
[2019-11-24 23:28] LABS: ALT 19 U/L (4-34); AST 21 U/L (14-36); African American GFR (CKD) >90 (>60 ml/min/1.73 sqM); Albumin 4.4 g/dL (3.5-5.0); Alkaline Phosphatase 81 U/L (38-126); Anion Gap 9 mmol/L; Blood Urea Nitrogen 11 mg/dL (7-17); Calcium 9.4 mg/dL (8.4-10.2); Carbon Dioxide 21 mmol/L (22-30); Chloride 108 mmol/L (98-107); Glucose 124 mg/dL (74-99); Magnesium 1.8 mg/dL (1.6-2.3); Non-African American GFR(CKD) >90 (>60 ml/min/1.73 sqM); Potassium 3.6 mmol/L (3.5-5.1); Sodium 138 mmol/L (137-145); Total Bilirubin 0.5 mg/dL (0.2-1.3); Total Protein 6.9 g/dL (6.3-8.2)
[2019-11-24] MEDS ORDERED: NITROGLYCERIN SL TABS 0.4 MG TAB SUBLINGUAL PRN (23:29)
[2019-11-24 23:30] LABS: INR 0.9 (<1.2); Partial Thromboplastin Time 24.8 sec (22.0-30.0); Prothrombin Time 9.5 sec (9.0-12.0)
[2019-11-25 06:14] LABS: Cholesterol 191 mg/dL (<200); HDL Cholesterol 26 mg/dL (40-60); LDL Cholesterol,Calculated 89 mg/dL (0-99); Triglycerides 381 mg/dL (<150)
[2019-11-25] MEDS: DICYCLOMINE 20 MG TAB PO SCH ×4 (06:32→21:52)
[2019-11-25] MEDS ORDERED: ASPIRIN 325 MG TAB PO SCH (09:00)
[2019-11-25] MEDS ORDERED: ASPIRIN 81 MG PO SCH (09:00)
[2019-11-25] MEDS ORDERED: METOPROLOL SUCCINATE (ER) 25 MG TAB.ER.24H PO SCH (09:00)
[2019-11-25] MEDS: lisinopriL 5 MG TAB PO SCH (09:41)
[2019-11-25] MEDS: PANTOPRAZOLE 40 MG TABLET PO SCH ×2 (09:41→20:52)
[2019-11-25] MEDS: CLOPIDOGREL 75 MG TAB PO SCH (09:41)
--- NOTE | 2019-11-25 10:50 | P.CRDCN ---
History of Present Illness Consult date: 11/25/19 Consult reason: chest pain History of present illness: The patient is a 49-year-old female with past medical history of coronary artery disease and recently underwent stenting of her left circumflex in June, dyslipidemia, and current smoker who follows in the office with Dr. Marks. She states she has been having chest pressure on and off for the last several weeks, however she had a severe episode while sitting on the couch last evening. She states it is a squeezing sensation in her chest, which causes her to hold her breath and was associated with mild dizziness. She also has been suffering from a migraine for the last 2 days. Coronary angiography from June of this year showed a 70% lesion in her mid LAD in addition to her 99% lesion in her left circumflex which was stented. DIAGNOSTICS: EKG shows sinus mechanism without ST or T-wave changes Chest x-ray shows no acute process Laboratory data review. WBC 11.8, hemoglobin 13.6, hematocrit 40.5, platelet 210, sodium 138, potassium 3.6, BUN 11, creatinine 0.67, magnesium 1.8, AST 21, ALT 19, troponins negative 3, cholesterol 191, triglycerides 381, HDL 26, LDL 89 Echocardiogram from July 2019 shows normal LV function without significant valvular abnormalities PAST MEDICAL HISTORY: Coronary artery disease, myocardial infarction, hypertension, dyslipidemia, current smoker REVIEW OF SYSTEMS: No fever or chills. No cough or expectoration. No diaph oresis. Patient denies dizziness, blurred vision, double vision. Positive headache. Patient denies any stomach discomfort. No nausea, vomiting. No hematochezia. No hematemesis. Denies any black stools or blood in his stools. Denies dysuria or hematuria. No muscle weakness or numbness. Positive for chest pressure. No shortness of breath PHYSICAL EXAMINATION: This is a 49-year-old female in no apparent distress at the time of my examination. She does report a mild headache. HEENT: Head is atraumatic, normocephalic. Pupils are equal, round. Sclerae anicteric. Conjunctivae are clear. Mucous membranes of the mouth are moist. Neck is supple. There is no jugular venous distention. No carotid bruit is heard. CHEST EXAMINATION: Lungs are clear to auscultation. No chest wall tenderness is noted on palpation or with deep breathing. HEART EXAMINATION: Heart regular rate and rhythm. S1, S2 heard. No murmurs, gallops or rub. ABDOMEN: Soft, nontender. Bowel sounds are heard. No organomegaly noted. EXTREMITIES: 2+ peripheral pulses with no evidence of peripheral edema and no calf tenderness noted. NEUROLOGIC EXAMINATION: Patient is awake, alert and oriented x3. FINAL ASSESSMENT AND PLAN: #1 chest discomfort, worsening #2 coronary artery disease, known 70% lesion and mid LAD #3 hypertension #4 dyslipidemia, not at goal #5 current smoker PLAN: We will maximize medical therapy, by increasing metoprolol to 25 mg and adding isosorbide 12-1/2 mg. Start Zetia 10 mg. Continue dual antiplatelet therapy. Patient will undergo coronary angiography within the next 1-2 days. Past Medical History Past Medical History: Myocardial Infarction ([place]) Additional Past Medical History / Comment(s): valve regurgitation. Last Myocardial Infarction Date:: 2017 History of Any Multi-Drug Resistant Organisms: None Reported Past Surgical History: Heart Catheterization, Heart Catheterization With Stent Past Anesthesia/Blood Transfusion Reactions: No Reported Reaction Date of Last Stent Placement:: unknown Past Psychological History: No Psychological Hx Reported Smoking Status: Current every day smoker Past Alcohol Use History: None Reported Past Drug Use History: None Reported - Past Family History Mother Family Medical History: Myocardial Infarction ([place]) Medications and Allergies Home Medications Medication Instructions Recorded Confirmed Type Aspirin EC [Ecotrin Low Dose] 81 mg PO DAILY 07/19/19 11/25/19 History Buta/APAP/Caf/Cod 62-279-54-30 1 cap PO Q4H PRN 07/19/19 11/25/19 History [Fioricet w/Cod 76-101-43-30MG] Clopidogrel [Plavix] 75 mg PO DAILY 07/19/19 11/25/19 History Dicyclomine [Bentyl] 20 mg PO DAILY 07/19/19 11/25/19 History Pantoprazole Sodium [Protonix] 40 mg PO BID 07/19/19 11/25/19 History Atorvastatin [Lipitor] 80 mg PO HS #30 tab 07/21/19 11/25/19 Rx Metoprolol Succinate (ER) [Toprol 12.5 mg PO DAILY #30 tab.er.24h 07/21/19 11/25/19 Rx XL] Nitroglycerin Sl Tabs [Nitrostat] 0.4 mg SUBLINGUAL Q5M PRN #25 tab 07/21/19 11/25/19 Rx lisinopriL [Zestril] 5 mg PO DAILY #30 tab 07/21/19 11/25/19 Rx Dicyclomine [Bentyl] 20 mg PO TID PRN 11/25/19 11/25/19 History Ubidecarenone [Co Q-10] 200 mg PO DAILY 11/25/19 11/25/19 History Allergies Allergy/AdvReac Type Severity Reaction Status Date / Time No Known Allergies Allergy Verified 11/25/19 08:10 Physical Exam Vitals: Vital Signs Temp Pulse Pulse Resp BP BP Pulse Ox 11/25/19 01:58 97.8 F 70 17 136/81 100 11/24/19 22:53 18 11/24/19 22:29 98.5 F 82 16 155/80 95 Intake and Output 11/24/19 11/25/19 11/25/19 22:59 06:59 14:59 Other: Voiding Method Toilet # Voids 1 Weight 79.379 kg 79.379 kg Results 11/24/19 22:57 11/24/19 22:57 Cardiac Enzymes 11/24/19 11/24/19 11/25/19 Range/Units 22:57 22:57 02:56 AST 21 (14-36) U/L Troponin I <0.012 <0.012 (0.000-0.034) ng/mL 11/25/19 Range/Units 05:37 AST (14-36) U/L Troponin I <0.012 (0.000-0.034) ng/mL Coagulation 11/24/19 Range/Units 22:57 PT 9.5 (9.0-12.0) sec APTT 24.8 (22.0-30.0) sec Lipids 11/25/19 Range/Units 05:37 Triglycerides 381 H (<150) mg/dL Cholesterol 191 (<200) mg/dL HDL Cholesterol 26 L (40-60) mg/dL CBC 11/24/19 Range/Units 22:57 WBC 11.8 H (3.8-10.6) k/uL RBC 4.68 (3.80-5.40) m/uL Hgb 13.6 (11.4-16.0) gm/dL Hct 40.5 (34.0-46.0) % Plt Count 210 (150-450) k/uL Comprehensive Metabolic Panel 11/24/19 Range/Units 22:57 Sodium 138 (137-145) mmol/L Potassium 3.6 (3.5-5.1) mmol/L Chloride 108 H (98-107) mmol/L Carbon Dioxide 21 L (22-30) mmol/L BUN 11 (7-17) mg/dL Creatinine 0.67 (0.52-1.04) mg/dL Glucose 124 H (74-99) mg/dL Calcium 9.4 (8.4-10.2) mg/dL AST 21 (14-36) U/L ALT 19 (4-34) U/L Alkaline Phosphatase 81 (38-126) U/L Total Protein 6.9 (6.3-8.2) g/dL Albumin 4.4 (3.5-5.0) g/dL Current Medications Generic Name Dose Route Start Last Admin Trade Name Freq PRN Reason Stop Dose Admin Acetam/Butalbital/Caffeine/Codeine 1 each 11/25/19 08:00 Fioricet W/Codeine PO Q4H PRN Migraine Headache Aspirin 81 mg 11/25/19 09:00 11/25/19 09:41 Aspirin PO 81 mg DAILY [facility] Administration Atorvastatin Calcium 80 mg 11/25/19 21:00 Lipitor PO HS [facility] Clopidogrel Bisulfate 75 mg 11/25/19 09:00 11/25/19 09:41 Plavix PO 75 mg DAILY [facility] Administration Dicyclomine HCl 20 mg 11/25/19 07:30 11/25/19 06:32 Bentyl PO 20 mg ACHS [facility] Administration Famotidine 20 mg 11/25/19 21:00 Pepcid IV Q12HR [facility] Heparin Sodium (Porcine) 5,000 unit 11/25/19 21:00 Heparin SQ Q12HR [facility] Lisinopril 5 mg 11/25/19 09:00 11/25/19 09:41 Zestril PO 5 mg DAILY [facility] Administration Metoprolol Succinate 12.5 mg 11/25/19 09:00 11/25/19 10:15 Toprol Xl PO 12.5 mg DAILY [facility] Administration Nicotine 1 patch 11/25/19 21:00 Habitrol 21mg/24hr Patch TRANSDERM HS [facility] Nitroglycerin 0.4 mg 11/24/19 23:29 Nitrostat SUBLINGUAL Q5M PRN Chest Pain Pantoprazole Sodium 40 mg 11/25/19 09:00 11/25/19 09:41 Protonix PO 40 mg BID [facility] Administration Intake and Output 11/24/19 11/25/19 11/25/19 22:59 06:59 14:59 Other: Voiding Method Toilet # Voids 1 Weight 79.379 kg 79.379 kg 11/24/19 22:57 11/24/19 22:57
[2019-11-25] MEDS ORDERED: MORPHINE SULFATE 2 MG/ML SYRINGE IVP STA (10:56)
[2019-11-25] MEDS: ISOSORBIDE MONONITRATE ER 15 MG TAB PO SCH (13:06)
[2019-11-25] MEDS: EZETIMIBE 10 MG TAB PO SCH (13:06)
[2019-11-25] MEDS: BUTA/APAP/CAF/COD 50-325-40-30 CAP PO PRN ×2 (13:07→22:53)
[2019-11-25] MEDS: ATORVASTATIN 80 MG TAB PO SCH (20:51)
[2019-11-25] MEDS: FAMOTIDINE 20 MG/2 ML VIAL IV SCH (20:52)
[2019-11-25] MEDS: HEPARIN SODIUM,PORCINE 5,000 UNIT/ML 1 ML VIAL SQ SCH (20:52)
[2019-11-25] MEDS: NICOTINE 21MG/24HR PATCH TRANSDERM SCH (21:04)
[2019-11-26] MEDS: DICYCLOMINE 20 MG TAB PO SCH ×4 (06:36→20:57)
[2019-11-26] MEDS ORDERED: ALPRAZolam 0.5 MG TAB PO PRN (08:20)
[2019-11-26] MEDS ORDERED: SODIUM CHLORIDE 0.9% 1,000 ML in EMPTY BAG 1 BAG IV ONE (08:20)
[2019-11-26] MEDS ORDERED: ALPRAZolam 0.25 MG TAB PO PRN (08:20)
[2019-11-26] MEDS ORDERED: ASPIRIN 325 MG TAB PO ONE (08:30)
[2019-11-26] MEDS ORDERED: SODIUM CHLORIDE 0.9% 1,000 ML IV SCH (08:30)
[2019-11-26] MEDS: FAMOTIDINE 20 MG/2 ML VIAL IV SCH ×2 (08:55→20:57)
[2019-11-26] MEDS: PANTOPRAZOLE 40 MG TABLET PO SCH ×2 (08:55→20:57)
[2019-11-26] MEDS: CLOPIDOGREL 75 MG TAB PO SCH (08:55)
[2019-11-26] MEDS: HEPARIN SODIUM,PORCINE 5,000 UNIT/ML 1 ML VIAL SQ SCH ×2 (08:55→20:57)
[2019-11-26] MEDS: EZETIMIBE 10 MG TAB PO SCH (08:56)
[2019-11-26] MEDS: ISOSORBIDE MONONITRATE ER 15 MG TAB PO SCH (08:56)
[2019-11-26] MEDS ORDERED: METOPROLOL SUCCINATE (ER) 25 MG TAB.ER.24H PO SCH (09:00)
[2019-11-26] MEDS ORDERED: IV FLUID CONTINUATION 1,000 ML IV ONE (11:00)
[2019-11-26] MEDS ORDERED: MIDAZOLAM 2 MG/2 ML VIAL IV ONE (11:03)
[2019-11-26] MEDS ORDERED: LIDOCAINE 1% INJ 10MG/ML (20 ML MDV) SQ ONE (11:04)
[2019-11-26] MEDS: lisinopriL 5 MG TAB PO SCH (11:05)
[2019-11-26] MEDS ORDERED: HYDROmorphone 1 MG/ML 1 ML SYRINGE IVP ONE (11:08)
[2019-11-26] MEDS ORDERED: BIVALIRUDIN BOLUS 250 MG/50 ML IV ONE (11:17)
[2019-11-26] MEDS ORDERED: BIVALIRUDIN 250 MG in SODIUM CHLORIDE 0.9% 50 ML IV ONE (11:18)
[2019-11-26] MEDS: NITROGLYCERIN 1000MCG/10ML SYRINGE INTRACORON ONE ×3 (11:24→11:30)
[2019-11-26] MEDS ORDERED: IOPAMIDOL-370 100ML BTL INJ ONE (11:34)
[2019-11-26] MEDS ORDERED: CLOPIDOGREL 75 MG TAB PO ONE (11:35)
[2019-11-26] MEDS ORDERED: RX INFO: IV CONTRAST WAS GIVEN 1 EACH MISC MISCELLANE PRN (11:36)
[2019-11-26] MEDS ORDERED: NITROGLYCERIN SL TABS 0.4 MG TAB SUBLINGUAL PRN (11:36)
[2019-11-26] MEDS ORDERED: ZOLPIDEM 5 MG TAB PO PRN (11:36)
[2019-11-26] MEDS ORDERED: MAG HYDROX/AL HYDROX/SIMETH 30 ML CUP PO PRN (11:36)
[2019-11-26] MEDS ORDERED: ATROPINE SULFATE 0.1 MG/ML 10ML SYRINGE IV PRN (11:36)
[2019-11-26] MEDS: SODIUM CHLORIDE 0.9% 1,000 ML IV SCH ×2 (12:00→15:53)
[2019-11-26] MEDS ORDERED: HYDROmorphone 1 MG/ML 1 ML SYRINGE ONE ×2 (12:45→14:34)
[2019-11-26 13:55] VITALS: BMI 30.9
[2019-11-26] MEDS ORDERED: HYDROmorphone 1 MG/ML 1 ML SYRINGE IVP STA (14:34)
[2019-11-26] MEDS ORDERED: ONDANSETRON 4 MG/2 ML VIAL IVP STA (15:51)
--- NOTE | 2019-11-26 16:40 | LTR ---
November 26, 2019 To: Dr. Axel Abrams Re: Marleen Malcolm (74) Dear Dr. Abrams, Ms. Marleen Malcolm was admitted to [facility] with chest discomfort and underwent a heart catheterization that revealed critical in-stent restenosis. She underwent successful stenting of the RCA with an excellent angiographic result and without any complication. Thank you for allowing us to participate in her care. Please do not hesitate to call if you have any question or concern. Sincerely, Sheng Charles M.D. ANABEL / SANDY: [id number] /
--- NOTE | 2019-11-26 16:45 | CC ---
CARDIAC CATHETERIZATION REPORT DATE OF SERVICE: 11/26/2019 PERFORMING PHYSICIAN: Sheng Charles MD. PROCEDURE PERFORMED: 1. Selective right and left coronary angiogram. 2. Left heart catheterization. 3. Successful stenting of the proximal RCA using 2.5 x 12 mm Xience SOFIA with an excellent angiographic results. INDICATION: This is a 49-year-old female patient with coronary artery disease and prior stenting of the RCA and LCX, who was admitted to the observation unit with chest discomfort. She was seen by Dr. Hutchinson who recommended proceeding with coronary angiogram. APPROACH: Right common femoral artery. COMPLICATION: None. LEVEL OF SEDATION: Moderate with sedation length of 31 minutes. PROCEDURE DESCRIPTION: After obtaining an informed consent, the patient was brought to the cardiac dairy and food laboratory assistant. The right common femoral artery was cannulated using micropuncture technique and a micropuncture wire passed easily, then I placed a 6-Hungarian sheath. I did selective right and left coronary angiogram with JR4 3.5 and JL3.5 catheters. Left heart catheterization was performed using JR3.5 catheter which crossed the aortic valve, then I did pullback across the valve. After that I did intervene on the RCA, please see a separate paragraph for that. SELECTIVE CORONARY ANGIOGRAM: 1. The right coronary artery is a large caliber vessel. It is a dominant vessel. The proximal RCA has severe in-stent restenosis that appeared to be in the range of 80%. The mid RCA is stented with mild in-stent restenosis. The RCA distally appeared to be normal. 2. The left main is angiographically normal, it bifurcates into LCX and LAD. 3. The LCX is a large caliber vessel, it is a nondominant vessel. The proximal and mid left circumflex is stented and the stent is patent. The LCX in the proximal portion gives rise into an OM1 which is a small to medium caliber vessel with severe/critical ostial lesion. 4. The LAD, the proximal LAD appeared to have mild disease only. The mid LAD, the mid LAD has a lesion appeared to be in the range of 60% to 70%. The LAD distally appeared to be angiographically normal. 5. HEMODYNAMICS: The LVEDP was 10 to 12 mmHg without significant gradient across the aortic valve. 6. PCI OF THE RCA: Anticoagulation was initiated using Angiomax. Subsequently I did engage the RCA using JL3.5 with side hole. The RCA was wired using a run-through wire. After that, I did PTCA ballooning using 2.5 x 10 mm AngioSculpt balloon. Then I did stenting of the proximal RCA using 2.5 x 12 mm Xience where the stent was positioned under fluoroscopy guidance and deployed under 12 atmospheres for 20 seconds. The following angiogram showed good angiographic results and the procedure was completed without any complication. CONCLUSION: 1. Critical in-stent restenosis of the RCA. 2. Normal left main coronary artery. 3. Patent stent in the LCX. 4. Intermediate to severe disease involving the mid LAD. POSTPROCEDURE MANAGEMENT: 1. Continue the current medical regimen. 2. Dual anti-platelet therapy and high-intensity statin. 3. Smoking cessation. 4. Follow up with the patient. MMRAYMONDL / IJN: [id number] /
[2019-11-26] MEDS: ATORVASTATIN 80 MG TAB PO SCH (20:57)
[2019-11-26] MEDS: NICOTINE 21MG/24HR PATCH TRANSDERM SCH (20:58)
--- NOTE | 2019-11-26 23:06 | P.HPIM ---
History of Present Illness H&P Date: 11/26/19 Chief Complaint: Chest. History of presenting complaint: This is a pleasant [address] Axel Abrams. 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 Patient had 3 stents placed in 2018 and in 2013. Chronic stable medical conditions include hyperlipidemia, peptic ulcer disease, GERD, bowel spasms. Patient has continued to smoke. In June of this year patient had a stent of the left circumflex ostium. Patient in August of this year was seen by Dr. Charles was told she had a 70% lesion. Depending on symptoms -intervention was to be done. Patient for last 2 or 3 days has been feeling unwell. Has been having squeezing sensation off and on in the chest. Some shortness of breath. Some perspiration. Admitted with unstable angina. Some symptoms related to activity.. 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 Denies use of any dictation drugs or alcohol. Does smoke less than a pack a day for over 35 years Family history: Reviewed, noncontributory to presentation Physical examination: VITAL SIGNS: 97.6, 52, 16, 116/71, 100% on 2 L GENERAL: BMI 31. laying in bed. EYES: Pupils equal. Conjunctiva normal. HEENT: External appearance of nose and ears normal, oral cavity grossly normal. NECK: JVD not raised; masses not palpable. HEART: First and second heart sounds are normal; no edema. LUNGS: Respiratory rate normal; slightly decreased breath sounds. ABDOMEN: Soft, nontender, liver spleen not palpable, no masses palpable. PSYCH: Alert and oriented x3; mood and affect slightly anxiousl. NEUROLOGICAL: Cranial nerves grossly intact; no facial asymmetry, power and se nsation grossly intact. LYMPHATICS: No lymph nodes palpable in the axilla and neck INVESTIGATIONS, reviewed in the clinical context: White count 11.8 hemoglobin 3.6 potassium 3.6 creatinine 0.67 LDL 89 triglycerides 381 COVID 19 PCR not detected EKG tracing personally reviewed by me-sinus rhythm with nonspecific ST segment changes Chest x-ray film personally reviewed by me-no infiltrates Assessment: -Unstable angina in a patient with known coronary artery disease,-pending cardiac catheterization -Coronary artery disease with 3 stents in 2018 and then in 2014 -Obesity BMI 31.0 -Chronic nicotine dependence patient cigarette smoker -Essential hypertension -Hyperlipidemia -Peptic ulcer disease -GERD -Chronic bowel spasms Plan: Cardiology was consulted. Home medications were resumed. Patient going for a cardiac catheterization this afternoon. On antiplatelet agents. Past Medical History Past Medical History: Myocardial Infarction ([place]) Additional Past Medical History / Comment(s): valve regurgitation. Last Myocardial Infarction Date:: 2017 History of Any Multi-Drug Resistant Organisms: None Reported Past Surgical History: Heart Catheterization, Heart Catheterization With Stent Past Anesthesia/Blood Transfusion Reactions: No Reported Reaction Date of Last Stent Placement:: unknown Past Psychological History: No Psychological Hx Reported Smoking Status: Current every day smoker Past Alcohol Use History: None Reported Past Drug Use History: None Reported - Past Family History Mother Family Medical History: Myocardial Infarction ([place]) Medications and Allergies Home Medications Medication Instructions Recorded Confirmed Type Aspirin EC [Ecotrin Low Dose] 81 mg PO DAILY 07/19/19 11/25/19 History Buta/APAP/Caf/Cod 08-724-81-30 1 cap PO Q4H PRN 07/19/19 11/25/19 History [Fioricet w/Cod 74-771-29-30MG] Clopidogrel [Plavix] 75 mg PO DAILY 07/19/19 11/25/19 History Dicyclomine [Bentyl] 20 mg PO DAILY 07/19/19 11/25/19 History Pantoprazole Sodium [Protonix] 40 mg PO BID 07/19/19 11/25/19 History Atorvastatin [Lipitor] 80 mg PO HS #30 tab 07/21/19 11/25/19 Rx Metoprolol Succinate (ER) [Toprol 12.5 mg PO DAILY #30 tab.er.24h 07/21/19 11/25/19 Rx XL] Nitroglycerin Sl Tabs [Nitrostat] 0.4 mg SUBLINGUAL Q5M PRN #25 tab 07/21/19 11/25/19 Rx lisinopriL [Zestril] 5 mg PO DAILY #30 tab 07/21/19 11/25/19 Rx Dicyclomine [Bentyl] 20 mg PO TID PRN 11/25/19 11/25/19 History Ubidecarenone [Co Q-10] 200 mg PO DAILY 11/25/19 11/25/19 History Allergies Allergy/AdvReac Type Severity Reaction Status Date / Time No Known Allergies Allergy Verified 11/25/19 08:10 Physical Exam Vitals: Vital Signs Temp Pulse Pulse Resp BP Pulse Ox 11/26/19 12:30 58 L 16 109/61 99 11/26/19 12:06 48 L 16 115/57 99 11/26/19 11:51 54 L 16 123/58 97 11/26/19 11:41 99 11/26/19 11:24 95 11/26/19 11:12 97 11/26/19 09:00 16 11/26/19 08:11 97.6 F 52 L 16 116/71 100 11/26/19 03:20 97.8 F 55 L 17 94/56 97 11/25/19 19:46 98.2 F 52 L 18 99/50 98 11/25/19 15:00 97.9 F 61 18 116/71 98 Intake and Output 11/25/19 11/26/19 11/26/19 22:59 06:59 14:59 Intake Total 540 204 Balance 540 204 Intake: IV 204 Sodium Chloride 0.9% 1, 0 000 ml @ 100 mls/hr IV . Q10H [facility] Rx#:[id number] Oral 540 Other: Voiding Method Toilet Toilet Toilet # Voids 2 2 Results CBC & Chem 7: 11/24/19 22:57 11/24/19 22:57 Thrombosis Risk Factor Assmnt - Choose All That Apply Each Factor Represents 1 point: Age 41-60 years, Obesity (BMI >25) Thrombosis Risk Factor Assessment Total Risk Factor Score: 2 Thrombosis Risk Factor Assessment Level: Low Risk
[2019-11-27] MEDS: BUTA/APAP/CAF/COD 50-325-40-30 CAP PO PRN (00:13)
[2019-11-27 03:10] VITALS: TEMP 97.7
[2019-11-27] MEDS: DICYCLOMINE 20 MG TAB PO SCH ×2 (06:26→12:10)
[2019-11-27 06:54] LABS: Basophils % (A) 0 %; Eosinophils # (A) 0.2 k/uL (0-0.7); Eosinophils % (A) 2 %; HCT 38.2 % (34.0-46.0); HGB 12.4 gm/dL (11.4-16.0); Lymphocytes # (A) 2.3 k/uL (1.0-4.8); Lymphocytes % (A) 24 %; MCHC 32.5 g/dL (31.0-37.0); MCV 89.2 fL (80.0-100.0); Monocytes # (A) 0.5 k/uL (0-1.0); Monocytes % (A) 6 %; Neutrophils # (A) 6.4 k/uL (1.3-7.7); Neutrophils % (A) 67 %; Platelet Count 169 k/uL (150-450); RBC 4.28 m/uL (3.80-5.40); RDW 12.7 % (11.5-15.5); WBC 9.6 k/uL (3.8-10.6)
[2019-11-27 07:07] LABS: African American GFR (CKD) >90 (>60 ml/min/1.73 sqM); Anion Gap 4 mmol/L; Blood Urea Nitrogen 8 mg/dL (7-17); Calcium 8.4 mg/dL (8.4-10.2); Carbon Dioxide 27 mmol/L (22-30); Chloride 108 mmol/L (98-107); Glucose 97 mg/dL (74-99); Non-African American GFR(CKD) >90 (>60 ml/min/1.73 sqM); Sodium 139 mmol/L (137-145)
[2019-11-27 07:13] LABS: Potassium 4.7 mmol/L (3.5-5.1)
[2019-11-27 07:38] VITALS: BP 107/63; PULSE 57; RESP 20
[2019-11-27] MEDS ORDERED: METOPROLOL TARTRATE 12.5 MG TAB PO SCH (09:00)
[2019-11-27] MEDS ORDERED: ASPIRIN 81 MG PO SCH (09:00)
[2019-11-27] MEDS: PANTOPRAZOLE 40 MG TABLET PO SCH (09:02)
[2019-11-27] MEDS: EZETIMIBE 10 MG TAB PO SCH (09:02)
[2019-11-27] MEDS: CLOPIDOGREL 75 MG TAB PO SCH (09:02)
[2019-11-27] MEDS: HEPARIN SODIUM,PORCINE 5,000 UNIT/ML 1 ML VIAL SQ SCH (09:03)
[2019-11-27] MEDS: lisinopriL 5 MG TAB PO SCH (09:06)
[2019-11-27] MEDS: FAMOTIDINE 20 MG/2 ML VIAL IV SCH (09:06)
--- NOTE | 2019-11-27 11:06 | P.PN ---
Subjective This is a pleasant 49-year-old female past medical history significant for coronary artery disease status post PCI to circumflex in June and underwent successful stenting of the proximal RCA yesterday. She is seen and examined resting comfortably lying flat in bed in no acute distress. She has no symptoms of chest discomfort, shortness of breath, dizziness or palpitations. She has been up and ambulating without difficulty. Right groin access site is clean, dry and intact with no evidence of hematoma or bleeding. Blood pressure 107/63 heart rate 57 afebrile maintaining oxygen saturation on room air. Laboratory data reviewed, CBC unremarkable, sodium 139, potassium 4.7, creatinine 0.68. Currently maintained on aspirin 81 mg daily, atorvastatin 80 mg at bedtime, Plavix 75 mg daily, that he attend milligrams daily, lisinopril 5 mg daily and metoprolol succinate 25 mg daily. Telemetry tracings indicate some resting sinus bradycardia. GENERAL: Well-appearing, well-nourished and in no acute distress. NECK: Supple without JVD or thyromegaly. LUNGS: Breath sounds clear to auscultation bilaterally. Respiration equal and unlabored. No wheezes, rales or rhonchi. HEART: Regular rate and rhythm without murmurs, rubs or gallops. S1 and S2 heard. EXTREMITIES: Normal range of motion, no edema. No clubbing or cyanosis. Per ipheral pulses intact. Right femoral access site mildly tender on palpation with no evidence of hematoma, oozing or bleeding. ASSESSMENT Unstable angina Coronary artery disease status post PCI of the circumflex in June and successful PCI of the proximal RCA yesterday Dyslipidemia Hypertension Chronic nicotine dependence PLAN Stable for discharge from a cardiac perspective. The importance of dual antiplatelet therapy discussed with the patient. Change beta megan to Lopressor 12.5 mg daily. Continue atorvastatin with the addition of zetia. Follow-up with Dr. Charles in the office in one week. Nurse Practitioner note has been reviewed, I agree with a documented findings and plan of care. Patient was seen and examined. Objective - Vital Signs Vital signs: Vital Signs Temp 97.7 F 11/27/19 07:37 Pulse 57 L 11/27/19 07:37 Resp 20 11/27/19 09:00 BP 107/63 11/27/19 07:37 Pulse Ox 100 11/27/19 07:37 Intake & Output 11/26/19 11/27/19 11/27/19 18:59 06:59 18:59 Intake Total 804 540 Output Total 600 700 Balance 204 -160 Weight 79.379 kg Intake: IV 554 Sodium Chloride 0.9% 1, 350 000 ml @ 100 mls/hr IV . Q10H [facility] Rx#:[id number] Oral 250 540 Output: Urine 500 700 Uretheral ([place]) 700 Emesis 100 Other: Voiding Method Toilet Toilet Toilet # Voids 1 - Labs CBC & Chem 7: 11/27/19 06:39 11/27/19 06:39 Labs: Abnormal Lab Results - Last 24 Hours (Table) 11/27/19 Range/Units 06:39 Chloride 108 H (98-107) mmol/L
--- NOTE | 2019-11-28 00:28 | P.DS ---
Providers Date of admission: 11/24/19 23:32 Expected date of discharge: 11/27/19 Attending physician: Boris Adamson Consults: 11/24/19 23:29 Consult Physician Routine Consulting Provider: Sheng Charles Consult Reason/Comments: Chest pain Do you want consulting provider notified?: Yes 11/26/19 11:36 Consult Physician Routine Consulting Provider: [facility] Consult Reason/Comments: Post Interventional patient Do you want consulting provider notified?: Already Contacted Primary care physician: Axel Abrams [facility] Course: Chief Complaint: Chest. History of presenting complaint: This is a pleasant [address] Axel Abrams. 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 Patient had 3 stents placed in 2018 and in 2013. Chronic stable medical conditions include hyperlipidemia, peptic ulcer disease, GERD, bowel spasms. Patient has continued to smoke. In June of this year patient had a stent of the left circumflex ostium. Patient in August of this year was seen by Dr. Charles was told she had a 70% lesion. Depending on symptoms -intervention was to be done. Patient for last 2 or 3 days has been feeling unwell. Has been having squeezing sensation off and on in the chest. Some shortness of breath. Some perspiration. Admitted with unstable angina. Some symptoms related to activity.. RCA what angioplasties and stented today-no chest pain no shortness of breath. Patient advised against smoking. Discussion and discharge planning more than 35 minutes consultation: Dr. Marks from cardiology Physical examination: VITAL SIGNS: 97.7, 57, 20, 107 was 63, 100% on room air GENERAL: BMI 31. laying in bed. EYES: Pupils equal. Conjunctiva normal. HEENT: External appearance of nose and ears normal, oral cavity grossly normal. NECK: JVD not raised; masses not palpable. HEART: First and second heart sounds are normal; no edema. LUNGS: Respiratory rate normal; slightly decreased breath sounds. ABDOMEN: Soft, nontender, liver spleen not palpable, no masses palpable. PSYCH: Alert and oriented x3; mood and affect slightly anxiousl. INVESTIGATIONS, reviewed in the clinical context: White count 9.6 hemoglobin 12.4 progression 4.7 crit 0.68 Previous testing White count 11.8 hemoglobin 3.6 potassium 3.6 creatinine 0.67 LDL 89 triglycerides 381 COVID 19 PCR not detected EKG tracing personally reviewed by me-sinus rhythm with nonspecific ST segment changes Chest x-ray film personally reviewed by me-no infiltrates Assessment: -Unstable angina in a patient with known coronary artery disease, -Cardiac intervention with angioplasty stenting to the RCA -Coronary artery disease with 3 stents in 2018 and then in 2014 -Obesity BMI 31.0 -Chronic nicotine dependence patient cigarette smoker -Essential hypertension -Hyperlipidemia -Peptic ulcer disease -GERD -Chronic bowel spasms disposition: Home Patient Condition at Discharge: Stable Plan - Discharge Summary Discharge Rx Participant: No New Discharge Prescriptions: New Metoprolol Tartrate [Lopressor] 12.5 mg PO DAILY #90 tab Ezetimibe [Zetia] 10 mg PO DAILY #90 tab Nicotine 21Mg/24Hr Patch [Habitrol] 1 patch TRANSDERM HS #14 patch Continue Pantoprazole Sodium [Protonix] 40 mg PO BID Dicyclomine [Bentyl] 20 mg PO DAILY Clopidogrel [Plavix] 75 mg PO DAILY Buta/APAP/Caf/Cod 30-784-59-30 [Fioricet w/Cod 68-808-16-30MG] 1 cap PO Q4H PRN PRN Reason: Migraine Headache Aspirin EC [Ecotrin Low Dose] 81 mg PO DAILY Atorvastatin [Lipitor] 80 mg PO HS #30 tab lisinopriL [Zestril] 5 mg PO DAILY #30 tab Nitroglycerin Sl Tabs [Nitrostat] 0.4 mg SUBLINGUAL Q5M PRN #25 tab PRN Reason: Chest Pain Dicyclomine [Bentyl] 20 mg PO TID PRN PRN Reason: GI CRAMPS Ubidecarenone [Co Q-10] 200 mg PO DAILY Discontinued Metoprolol Succinate (ER) [Toprol XL] 12.5 mg PO DAILY #30 tab.er.24h Discharge Medication List Aspirin EC [Ecotrin Low Dose] 81 mg PO DAILY 07/19/19 [History] Buta/APAP/Caf/Cod 93-635-48-30 [Fioricet w/Cod 89-086-00-30MG] 1 cap PO Q4H PRN 07/19/19 [History] Clopidogrel [Plavix] 75 mg PO DAILY 07/19/19 [History] Dicyclomine [Bentyl] 20 mg PO DAILY 07/19/19 [History] Pantoprazole Sodium [Protonix] 40 mg PO BID 07/19/19 [History] Atorvastatin [Lipitor] 80 mg PO HS #30 tab 07/21/19 [Rx] Nitroglycerin Sl Tabs [Nitrostat] 0.4 mg SUBLINGUAL Q5M PRN #25 tab 07/21/19 [Rx] lisinopriL [Zestril] 5 mg PO DAILY #30 tab 07/21/19 [Rx] Dicyclomine [Bentyl] 20 mg PO TID PRN 11/25/19 [History] Ubidecarenone [Co Q-10] 200 mg PO DAILY 11/25/19 [History] Ezetimibe [Zetia] 10 mg PO DAILY #90 tab 11/27/19 [Rx] Metoprolol Tartrate [Lopressor] 12.5 mg PO DAILY #90 tab 11/27/19 [Rx] Nicotine 21Mg/24Hr Patch [Habitrol] 1 patch TRANSDERM HS #14 patch 11/27/19 [Rx] Follow up Appointment(s)/Referral(s): Axel Abrams MD [Primary Care Provider] - 12/05/19 11:00 am () Sheng Charles MD [STAFF PHYSICIAN] - 12/06/19 4:15 pm Patient Instructions/Handouts: *[facility] - After Heart Catheterization - Tool Repair Technician Instructions, How to Stop Smoking (DC), Coronary Intravascular Stent Placement (DC)
== END 2019-11-27 13:52 | disposition home or self-care (01) | DRG 247 ==
LOC: EC 22:22 → OBSVTOIN 23:32 → 3NCARDOBS 23:32
PROVIDERS: ADMIT Hospitalist; ATTEND Hospitalist
PROC: B2111ZZ Fluoroscopy of Multiple Coronary Arteries using Low Osmolar Contrast (ICD-10-PCS; principal; 2019-11-26 10:45)
PROC: 4A023N7 Measurement of Cardiac Sampling and Pressure, Left Heart, Percutaneous Approach (ICD-10-PCS; principal; 2019-11-26 10:45)
PROC: 027034Z Dilation of Coronary Artery, One Artery with Drug-eluting Intraluminal Device, Percutaneous Approach (ICD-10-PCS; principal; 2019-11-26 10:45)
DX: I25.110 Atherosclerotic heart disease of native coronary artery with unstable angina pectoris (principal); T82.855A Stenosis of coronary artery stent, initial encounter; G43.909 Migraine, unspecified, not intractable, without status migrainosus; I10 Essential (primary) hypertension; E78.5 Hyperlipidemia, unspecified; F17.210 Nicotine dependence, cigarettes, uncomplicated; E66.9 Obesity, unspecified; K21.9 Gastro-esophageal reflux disease without esophagitis; K58.9 Irritable bowel syndrome, unspecified; Z11.59 Encounter for screening for other viral diseases; Y83.1 Surgical operation with implant of artificial internal device as the cause of abnormal reaction of the patient, or of later complication, without mention of misadventure at the time of the procedure; Z79.02 Long term (current) use of antithrombotics/antiplatelets; Z79.899 Other long term (current) drug therapy; Z79.82 Long term (current) use of aspirin; I25.2 Old myocardial infarction; Z68.31 Body mass index [BMI] 31.0-31.9, adult; Z82.49 Family history of ischemic heart disease and other diseases of the circulatory system; Z95.5 Presence of coronary angioplasty implant and graft; Z87.11 Personal history of peptic ulcer disease
CPT/HCPCS: 36415; 71046; 80048; 80053; 80061; 83735; 84484; 85025; 85610; 85730; 93005; 93458; 96374; 99291

== ENCOUNTER 2020-06-17 15:29 | Observation (INO) | payer OTHER ==
[2020-06-17] MEDS ORDERED: MORPHINE SULFATE 4 MG/ML SYRINGE IM STA (15:49)
[2020-06-17] MEDS ORDERED: NITROGLYCERIN-D5W PMX 50 MG in DEXTROSE/WATER 1 250ML.BAG IV ONE (15:49)
--- NOTE | 2020-06-17 15:52 | ED ---
General Adult HPI - General Chief complaint: Chest Pain Stated complaint: chest & jaw pain Time Seen by Provider: 06/17/20 15:43 Source: patient, RN notes reviewed, old records reviewed Mode of arrival: ambulatory Limitations: no limitations - History of Present Illness Initial comments: 49-year-old female known history of CAD status post stenting presenting for evaluation of substernal chest pain. Pain is associated with some nausea. Does radiate to the patient's arm and jaw. She states she had stents placed approximately 6 months ago. She is currently on aspirin and Plavix and she states she's been compliant with these medications. He denies significant cough or dyspnea. Denies lower extremity pain or swelling. Denies abdominal pain. - Related Data Home Medications Medication Instructions Recorded Confirmed Aspirin EC [Ecotrin Low Dose] 81 mg PO DAILY 07/19/19 11/25/19 Buta/APAP/Caf/Cod 45-623-12-30 1 cap PO Q4H PRN 07/19/19 11/25/19 [Fioricet w/Cod 04-131-76-30MG] Clopidogrel [Plavix] 75 mg PO DAILY 07/19/19 11/25/19 Dicyclomine [Bentyl] 20 mg PO DAILY 07/19/19 11/25/19 Pantoprazole Sodium [Protonix] 40 mg PO BID 07/19/19 11/25/19 Dicyclomine [Bentyl] 20 mg PO TID PRN 11/25/19 11/25/19 Ubidecarenone [Co Q-10] 200 mg PO DAILY 11/25/19 11/25/19 Previous Rx's Medication Instructions Recorded Atorvastatin [Lipitor] 80 mg PO HS #30 tab 07/21/19 Nitroglycerin Sl Tabs [Nitrostat] 0.4 mg SUBLINGUAL Q5M PRN #25 tab 07/21/19 lisinopriL [Zestril] 5 mg PO DAILY #30 tab 07/21/19 Ezetimibe [Zetia] 10 mg PO DAILY #90 tab 11/27/19 Metoprolol Tartrate [Lopressor] 12.5 mg PO DAILY #90 tab 11/27/19 Nicotine 21Mg/24Hr Patch [Habitrol] 1 patch TRANSDERM HS #14 patch 11/27/19 Allergies Allergy/AdvReac Type Severity Reaction Status Date / Time hydromorphone [From Dilaudid] Allergy Mild Itching Verified 11/27/19 07:36 acetaminophen [From Vicodin] Allergy Rash/Hives Verified 06/17/20 15:36 hydrocodone [From Vicodin] Allergy Rash/Hives Verified 06/17/20 15:36 Review of Systems ROS Statement: Those systems with pertinent positive or pertinent negative responses have been documented in the HPI. ROS Other: All systems not noted in ROS Statement are negative. Past Medical History Past Medical History: Myocardial Infarction ([place]) Additional Past Medical History / Comment(s): valve regurgitation. Last Myocardial Infarction Date:: 2017 History of Any Multi-Drug Resistant Organisms: None Reported Past Surgical History: Heart Catheterization, Heart Catheterization With Stent Past Anesthesia/Blood Transfusion Reactions: No Reported Reaction Date of Last Stent Placement:: unknown Past Psychological History: No Psychological Hx Reported Smoking Status: Current every day smoker Past Alcohol Use History: None Reported Past Drug Use History: None Reported - Past Family History Mother Family Medical History: Myocardial Infarction ([place]) General Exam Limitations: no limitations General appearance: alert, in no apparent distress Head exam: Present: atraumatic, normocephalic Eye exam: Present: normal appearance, PERRL ENT exam: Present: normal exam Neck exam: Present: normal inspection Respiratory exam: Present: normal lung sounds bilaterally. Absent: respiratory distress, wheezes, rales Cardiovascular Exam: Present: regular rate, normal rhythm GI/Abdominal exam: Present: soft. Absent: distended, tenderness, guarding Extremities exam: Present: normal inspection, normal capillary refill. Absent: pedal edema, calf tenderness Neurological exam: Present: alert, oriented X3, CN II-XII intact. Absent: motor sensory deficit Psychiatric exam: Present: normal affect, normal mood Skin exam: Present: warm, dry, intact. Absent: cyanosis, diaphoretic Course Vital Signs 06/17/20 06/17/20 06/17/20 15:32 16:20 16:30 Temperature 98.4 F Pulse Rate 86 71 75 Respiratory 18 18 18 Rate Blood Pressure 167/69 140/88 126/58 O2 Sat by Pulse 97 96 98 Oximetry 06/17/20 06/17/20 16:40 17:00 Temperature Pulse Rate 72 73 Respiratory 18 18 Rate Blood Pressure 157/85 134/62 O2 Sat by Pulse 97 96 Oximetry EKG Findings - EKG Comments: EKG Findings:: EKG: Normal sinus rhythm, rate of 83, MI interval 158, QRS duration 92, QTC 437, no ST segment elevation. Medical Decision Making - Medical Decision Making 49-year-old female history of CAD presenting with squeezing anterior chest pain. She states she has been told in the past that she has a vasospasm which may be contributing to her pain. Her EKG is sinus rhythm without ST segment elevation. Chest x-rays negative for acute cardiac primary findings. She has normal CBC, normal CMP, negative initial troponin. She will be admitted for serial chronic enzymes, telemetry, cardiology consultation. Case is discussed with Dr. Medellin who will admit. - Lab Data Result diagrams: 06/17/20 15:59 06/17/20 15:59 Lab Results 06/17/20 06/17/20 06/17/20 Range/Units 15:59 15:59 15:59 WBC 9.6 (3.8-10.6) k/uL RBC 4.70 (3.80-5.40) m/uL Hgb 14.2 (11.4-16.0) gm/dL Hct 40.9 (34.0-46.0) % MCV 87.1 (80.0-100.0) fL MCH 30.2 (25.0-35.0) pg MCHC 34.7 (31.0-37.0) g/dL RDW 12.6 (11.5-15.5) % Plt Count 179 (150-450) k/uL MPV 7.7 Neutrophils % 65 % Lymphocytes % 26 % Monocytes % 6 % Eosinophils % 2 % Basophils % 0 % Neutrophils # 6.3 (1.3-7.7) k/uL Lymphocytes # 2.5 (1.0-4.8) k/uL Monocytes # 0.5 (0-1.0) k/uL Eosinophils # 0.2 (0-0.7) k/uL Basophils # 0.0 (0-0.2) k/uL PT 9.6 (9.0-12.0) sec INR 0.9 (<1.2) APTT 24.6 (22.0-30.0) sec Sodium 140 (137-145) mmol/L Potassium 4.0 (3.5-5.1) mmol/L Chloride 109 H (98-107) mmol/L Carbon Dioxide 21 L (22-30) mmol/L Anion Gap 10 mmol/L BUN 9 (7-17) mg/dL Creatinine 0.62 (0.52-1.04) mg/dL Est GFR (CKD-EPI)AfAm >90 (>60 ml/min/1.73 sqM) Est GFR (CKD-EPI)NonAf >90 (>60 ml/min/1.73 sqM) Glucose 115 H (74-99) mg/dL Calcium 9.6 (8.4-10.2) mg/dL Magnesium 1.7 (1.6-2.3) mg/dL Total Bilirubin 0.4 (0.2-1.3) mg/dL AST 27 (14-36) U/L ALT 32 (4-34) U/L Alkaline Phosphatase 81 (38-126) U/L Troponin I (0.000-0.034) ng/mL NT-Pro-B Natriuret Pep pg/mL Total Protein 7.3 (6.3-8.2) g/dL Albumin 4.5 (3.5-5.0) g/dL Amylase 51 (30-110) U/L Lipase 165 (23-300) U/L 06/17/20 06/17/20 Range/Units 15:59 15:59 WBC (3.8-10.6) k/uL RBC (3.80-5.40) m/uL Hgb (11.4-16.0) gm/dL Hct (34.0-46.0) % MCV (80.0-100.0) fL MCH (25.0-35.0) pg MCHC (31.0-37.0) g/dL RDW (11.5-15.5) % Plt Count (150-450) k/uL MPV Neutrophils % % Lymphocytes % % Monocytes % % Eosinophils % % Basophils % % Neutrophils # (1.3-7.7) k/uL Lymphocytes # (1.0-4.8) k/uL Monocytes # (0-1.0) k/uL Eosinophils # (0-0.7) k/uL Basophils # (0-0.2) k/uL PT (9.0-12.0) sec INR (<1.2) APTT (22.0-30.0) sec Sodium (137-145) mmol/L Potassium (3.5-5.1) mmol/L Chloride (98-107) mmol/L Carbon Dioxide (22-30) mmol/L Anion Gap mmol/L BUN (7-17) mg/dL Creatinine (0.52-1.04) mg/dL Est GFR (CKD-EPI)AfAm (>60 ml/min/1.73 sqM) Est GFR (CKD-EPI)NonAf (>60 ml/min/1.73 sqM) Glucose (74-99) mg/dL Calcium (8.4-10.2) mg/dL Magnesium (1.6-2.3) mg/dL Total Bilirubin (0.2-1.3) mg/dL AST (14-36) U/L ALT (4-34) U/L Alkaline Phosphatase (38-126) U/L Troponin I <0.012 (0.000-0.034) ng/mL NT-Pro-B Natriuret Pep 54 pg/mL Total Protein (6.3-8.2) g/dL Albumin (3.5-5.0) g/dL Amylase (30-110) U/L Lipase (23-300) U/L Disposition Clinical Impression: Chest pain Disposition: ADMITTED IP TO THIS [facility] Condition: Stable Is patient prescribed a controlled substance at d/c from ED?: No Referrals: Axel Abrams MD [Primary Care Provider] - 1-2 days Decision to Admit Reason: Admit from EC Decision Date: 06/17/20 Decision Time: 17:22
[2020-06-17] MEDS ORDERED: MORPHINE SULFATE 4 MG/ML SYRINGE IVP STA (16:13)
--- NOTE | 2020-06-17 16:14 | XR ---
EXAMINATION TYPE: XR chest 2V DATE OF EXAM: 06/17/2020 COMPARISON: 11/24/2019 HISTORY: 49-year-old female with chest pain TECHNIQUE: PA and lateral views FINDINGS: The cardiomediastinal silhouette, aorta, and pulmonary vasculature are within normal limits. Lungs an d pleural spaces are clear. IMPRESSION: No acute cardiopulmonary process.
[2020-06-17 16:19] LABS: Basophils % (A) 0 %; Eosinophils # (A) 0.2 k/uL (0-0.7); Eosinophils % (A) 2 %; HCT 40.9 % (34.0-46.0); HGB 14.2 gm/dL (11.4-16.0); Lymphocytes # (A) 2.5 k/uL (1.0-4.8); Lymphocytes % (A) 26 %; MCH 30.2 pg (25.0-35.0); MCHC 34.7 g/dL (31.0-37.0); MCV 87.1 fL (80.0-100.0); Mean Platelet Volume 7.7; Monocytes # (A) 0.5 k/uL (0-1.0); Monocytes % (A) 6 %; Neutrophils # (A) 6.3 k/uL (1.3-7.7); Neutrophils % (A) 65 %; Platelet Count 179 k/uL (150-450); RDW 12.6 % (11.5-15.5); WBC 9.6 k/uL (3.8-10.6)
[2020-06-17 16:30] LABS: ALT 32 U/L (4-34); AST 27 U/L (14-36); African American GFR (CKD) >90 (>60 ml/min/1.73 sqM); Albumin 4.5 g/dL (3.5-5.0); Alkaline Phosphatase 81 U/L (38-126); Amylase 51 U/L (30-110); Anion Gap 10 mmol/L; Blood Urea Nitrogen 9 mg/dL (7-17); Calcium 9.6 mg/dL (8.4-10.2); Carbon Dioxide 21 mmol/L (22-30); Chloride 109 mmol/L (98-107); Glucose 115 mg/dL (74-99); INR 0.9 (<1.2); Lipase 165 U/L (23-300); Magnesium 1.7 mg/dL (1.6-2.3); Non-African American GFR(CKD) >90 (>60 ml/min/1.73 sqM); Partial Thromboplastin Time 24.6 sec (22.0-30.0); Prothrombin Time 9.6 sec (9.0-12.0); Sodium 140 mmol/L (137-145); Total Bilirubin 0.4 mg/dL (0.2-1.3); Total Protein 7.3 g/dL (6.3-8.2)
[2020-06-17] MEDS ORDERED: NALOXONE 0.4 MG/ML 1 ML VIAL IV PRN (17:20)
[2020-06-17] MEDS ORDERED: ASPIRIN 325 MG TAB PO STA (17:20)
[2020-06-17] MEDS ORDERED: IBUPROFEN 800 MG TAB PO PRN (18:26)
[2020-06-17] MEDS ORDERED: TEMAZEPAM 15 MG CAP PO PRN (18:27)
[2020-06-17] MEDS ORDERED: ALPRAZolam 0.25 MG TAB PO PRN (18:27)
--- NOTE | 2020-06-17 19:15 | HP ---
HISTORY AND PHYSICAL DATE OF SERVICE: 06/17/2020 CHIEF COMPLAINT: Chest pain. HISTORY OF PRESENT ILLNESS: This 49-year-old woman with a past medical history of multiple medical problems, including history of myocardial infarction, history of valvular regurgitation, history of CAD, multiple stents, being followed by Dr. Abrams in the outpatient setting, was complaining of chest pain which was a constricting type of pain with some nausea. Patient also had severe jaw pain. The patient came to [facility] and was admitted for further evaluation and treatment. The patient is currently on aspirin and Plavix, and the patient has been compliant with medications. After admission the initial troponins were negative. The EKG, which I reviewed personally, showed diffuse ST-T changes. The patient was admitted for further evaluation and treatment. There is no history of any fever, rigor or chills at this time. PAST MEDICAL HISTORY: History of myocardial infarction, valvular regurgitation, CAD and stent. MEDICATIONS: Advil, dextroamphetamine, Protonix, Ecotrin, Zestril, metoprolol, Bentyl, Plavix, Fioricet, Lipitor. Doses are reviewed. ALLERGIES: DILAUDID, VICODIN. FAMILY HISTORY: History of myocardial infarction in the family. SOCIAL HISTORY: History of smoking, continued and ongoing. REVIEW OF SYSTEMS: ENT: No diminished hearing. No diminished vision. CARDIOVASCULAR SYSTEM: As mentioned earlier. RESPIRATORY SYSTEM: As mentioned earlier. GI: No nausea, vomiting, diarrhea. : No dysuria or retention. NERVOUS SYSTEM: No numbness, weakness. ALLERGY/IMMUNOLOGY: No asthma, hayfever. MUSCULOSKELETAL: As mentioned earlier. HEMATOLOGY/ONCOLOGY: No history of anemia. ENDOCRINE: No history of diabetes, hypothyroidism. CONSTITUTIONAL: As mentioned earlier. DERMATOLOGY: Negative. RHEUMATOLOGY: Negative. PSYCHIATRY: As mentioned earlier. PHYSICAL EXAMINATION: Patient alert and oriented x3. Pulse 68, blood pressure 132/60, respiration 18, temperature 98.3, pulse ox 96% on room air. HEENT: Conjunctivae normal. NECK: No jugular venous distention. CARDIOVASCULAR SYSTEM: S1, S2 muffled. RESPIRATORY SYSTEM: Breath sounds diminished at the bases. No rhonchi. No crackles. ABDOMEN: Soft, non-tender. No mass palpable. LEGS: No edema. No swelling. NERVOUS SYSTEM: Higher functions as mentioned earlier. Moves all 4 limbs. No focal motor or sensory deficit. LYMPHATICS: No lymph node palpable in neck, axillae or groin. SKIN: No ulcer, rash, bleeding. JOINTS: No active deforming arthropathy. LABS: CBC within normal limits. CO2 is 21, glucose 115. ASSESSMENT: 1. Chest pain; possible unstable angina. 2. History of myocardial infarction. 3. History of coronary artery disease, stent. 4. History of valvular regurgitation. 5. History of continued ongoing nicotine dependence. 6. Obesity with body mass index of 31.9. RECOMMENDATIONS AND DISCUSSION: In this 49-year-old woman who presented with multiple medical issues, we will monitor the patient closely. Rule out myocardial infarction. Unstable angina protocol. Otherwise, closely follow with Cardiology. Resume the home medications. The prognosis is guarded because of multiple complex medical issues. Further recommendations to follow. A copy of this dictation is being forwarded to Dr. Abrams, who is the primary physician. MMODL / IJN: [id number] /
[2020-06-17] MEDS: NITROGLYCERIN SL TABS 0.4 MG TAB SUBLINGUAL PRN ×2 (20:04→20:30)
[2020-06-17] MEDS: MORPHINE SULFATE 4 MG/ML SYRINGE IV PRN (20:04)
[2020-06-17] MEDS: NICOTINE 14MG/24HR PATCH TRANSDERM SCH (20:30)
[2020-06-17] MEDS: PANTOPRAZOLE 40 MG TABLET PO SCH (20:30)
[2020-06-17] MEDS: DICYCLOMINE 20 MG TAB PO PRN (20:30)
[2020-06-17] MEDS ORDERED: ATORVASTATIN 80 MG TAB PO SCH (21:00)
[2020-06-18] MEDS: MORPHINE SULFATE 4 MG/ML SYRINGE IV PRN (04:30)
[2020-06-18] MEDS ORDERED: ATORVASTATIN 80 MG TAB PO STA (08:29)
[2020-06-18] MEDS ORDERED: NITROGLYCERIN SL TABS 0.4 MG TAB SUBLINGUAL PRN (08:29)
[2020-06-18] MEDS ORDERED: SODIUM CHLORIDE 0.9% 1,000 ML in EMPTY BAG 1 BAG IV ONE (08:29)
[2020-06-18] MEDS ORDERED: ASPIRIN 325 MG TAB PO STA (08:29)
[2020-06-18] MEDS: PANTOPRAZOLE 40 MG TABLET PO SCH ×2 (08:46→17:19)
[2020-06-18] MEDS ORDERED: METOPROLOL TARTRATE 25 MG TAB PO SCH ×3 (09:00)
[2020-06-18] MEDS ORDERED: lisinopriL 5 MG TAB PO SCH (09:00)
[2020-06-18] MEDS ORDERED: ASPIRIN 81 MG PO SCH (09:00)
[2020-06-18] MEDS ORDERED: CLOPIDOGREL 75 MG TAB PO SCH (09:00)
[2020-06-18] MEDS ORDERED: ADDERALL PO SCH (09:00)
[2020-06-18] MEDS: DICYCLOMINE 20 MG TAB PO PRN (09:10)
[2020-06-18 09:29] LABS: Basophils # (A) 0.05 X 10*3/uL (0.00-0.10); Basophils % (A) 0.6 %; Eosinophils # (A) 0.26 X 10*3/uL (0.04-0.35); Eosinophils % (A) 3.1 %; HCT 38.8 % (37.2-46.3); HGB 13.1 g/dL (12.0-15.0); Lymphocytes % (A) 34.5 %; MCH 30.2 pg (27.0-32.0); MCHC 33.8 g/dL (32.0-37.0); MCV 89.4 fL (80.0-97.0); Mean Platelet Volume 10.8 fL (9.5-12.2); Monocytes # (A) 0.69 X 10*3/uL (0.20-1.00); Monocytes % (A) 8.2 %; Neutrophils # (A) 4.47 X 10*3/uL (1.80-7.70); Neutrophils % (A) 53.2 %; Platelet Count 162 X 10*3/uL (140-440); RBC 4.34 X 10*6/uL (4.10-5.20); RDW 12.7 % (11.5-14.5)
[2020-06-18 09:42] LABS: African American GFR (CKD) 125.8 (60.0-200.0); Anion Gap 4.5 mmol/L (4.00-12.00); BUN/Creat Ratio 21.67 Ratio (12.00-20.00); Calcium 8.6 mg/dL (8.7-10.3); Carbon Dioxide 24.5 mmol/L (21.6-31.8); Non-African American GFR(CKD) 108.5 (60.0-200.0)
--- NOTE | 2020-06-18 10:23 | ECHOF ---
Referral Reason:[place] MEASUREMENTS -------- HEIGHT: 160.0 cm WEIGHT: 81.6 kg BP: 123/66 RVIDd: 3.6 cm (< 3.3) IVSd: 1.3 cm (0.6 - 1.1) LVIDd: 3.9 cm (3.9 - 5.3) LVPWd: 1.3 cm (0.6 - 1.1) IVSs: 1.6 cm LVIDs: 3.0 cm LVPWs: 1.5 cm LA Diam: 3.1 cm (2.7 - 3.8) LAESV Index (A-L): 24.72 ml/m Ao Diam: 3.0 cm (2.0 - 3.7) AV Cusp: 2.0 cm (1.5 - 2.6) MV EXCURSION: 19.315 mm (> 18.000) MV EF SLOPE: 108 mm/s (70 - 150) EPSS: 0.8 cm MV E Jose M: 0.90 m/s MV DecT: 329 ms MV A Jose M: 0.95 m/s MV E/A Ratio: 0.95 AR PHT: 588 ms RAP: 5.00 mmHg RVSP: 32.12 mmHg FINDINGS -------- Sinus rhythm. This was a technically adequate study. The left ventricular size is normal. There is mild concentric left ventricular hypertrophy. Overa ll left ventricular systolic function is normal with, an EF between 60 - 65 %. The right ventricle is mildly enlarged. Normal LA size by volume 22+/-6 ml/m2. The right atrium is normal in size. Interatrial and interventricular septum intact. Aortic valve is trileaflet and is mildly thickened. There is moderate aortic regurgitation. There is trace mitral regurgitation. Mild tricuspid regurgitation present. Right ventricular systolic pressure is normal at < 35 mmHg. The pulmonic valve was not well visualized. The aortic root size is normal. Normal inferior vena cava with normal inspiratory collapse consistent with estimated right atrial pre ssure of 5 mmHg. The inferior vena cava is mildly dilated. There is no pericardial effusion. CONCLUSIONS -------- 1. The left ventricular size is normal. 2. There is mild concentric left ventricular hypertrophy. 3. Overall left ventricular systolic function is normal with, an EF between 60 - 65 %. 4. The right ventricle is mildly enlarged. 5. Normal LA size by volume 22+/-6 ml/m2. 6. Aortic valve is trileaflet and is mildly thickened. 7. There is moderate aortic regurgitation. 8. There is trace mitral regurgitation. 9. Mild tricuspid regurgitation present. 10. The inferior vena cava is mildly dilated. 11. There is no pericardial effusion. DIRECTOR FINANCIAL PLANNING: LAQUITA Cope
[2020-06-18] MEDS: BUTA/APAP/CAF/COD 50-325-40-30 CAP PO PRN ×2 (10:28→17:46)
--- NOTE | 2020-06-18 10:37 | P.CRDCN ---
History of Present Illness History of present illness: HISTORY OF PRESENTING ILLNESS This is a pleasant 49-year-old female past medical history significant for coronary artery disease status post PCI to the circumflex and RCA with inte rmediate to severe disease involving the mid to distal LAD, hypertension, dyslipidemia and chronic nicotine dependence. She follows in the office with Dr Charles. We have been asked to see in consultation for chest pain. She states the discomfort started mostly on the weekend where she was having frequent episodes of a squeezing burning sensation in the midsternal region. It was associated with radiation to the jaw, nausea and feeling lightheaded. The symptoms occurred mostly at rest. She states she is under significant amount of stress at home. Initially she underwent PCI in July 2019 and had a repeat catheterization October 2019 revealing in-stent restenosis and restenting of the RCA. She states she is compliant with her anti-platelet therapy. She has had no further episodes of chest discomfort since arriving at the hospital. According to the patient these symptoms are the same but more intense than she had in June and October. Echocardiogram obtained on this admission reveals pre served LV systolic function with ejection fraction 60-65%. DIAGNOSTICS EKG reveals sinus mechanism with no acute ST or T wave abnormalities noted heart rate of 83 inferior Q wave noted. Consistent with previous EKG. Telemetry tracings indicate sinus mechanism. Chest xray negative for an acute cardiopulmonary process. Laboratory reviewed, CBC unremarkable, sodium 139, potassium 4.0, creatinine 0. 6, magnesium 1.7, cardiac enzymes negative 3. Current cardiac medications include atorvastatin 80 mg daily, Plavix 75 mg daily, metoprolol 25 mg daily, lisinopril 5 mg daily and aspirin 81 mg daily REVIEW OF SYSTEMS At the time of my exam: CONSTITUTIONAL: Denies fever or chills. CARDIOVASCULAR: Denies chest pain, shortness of breath, orthopnea, PND or palpitations. RESPIRATORY: Denies cough. GASTROINTESTINAL: Denies abdominal pain, diarrhea, constipation, nausea or vomiting. MUSCULOSKELETAL: Denies myalgias. NEUROLOGIC: Denies numbness, tingling, headacbe or weakness. ENDOCRINE: Denies fatigue, weight change, polydipsia or polyurina. GENITOURINARY: Denies burning, hematuria or urgency with micturation. HEMATOLOGIC: Denies history of anemia or bleeding. PHYSICAL EXAMINATION Blood pressure 123/66 heart rate 62 afebrile and maintaining oxygen saturation on room air. CONSTITUTIONAL: No apparent distress. HEENT: Head is normocephalic. Pupils are equal, round. Sclerae anicteric. Mucous membranes of the mouth are moist. No JVD. No carotid bruit. CHEST EXAMINATION: Lungs are clear to auscultation. No chest wall tenderness is noted on palpation or with deep breathing. HEART EXAMINATION: Regular rate and rhythm. S1, S2 heard. No murmurs, gallops or rub. ABDOMEN: Soft, nontender. Positive bowel sounds. EXTREMITIES: 2+ peripheral pulses, no lower extremity edema and no calf tender ness. NEUROLOGIC EXAMINATION: Patient is awake, alert and oriented x3. ASSESSMENT Unstable angina Coronary artery disease status post PCI with history of in-stent restenosis Hypertension Dyslipidemia Chronic nicotine dependence PLAN Recommend proceeding with cardiac catheterization to assess coronary arteries for the possibility of recurrent in-stent restenosis. I have discussed the risks, benefits and alternative therapies for the above-mentioned procedure and for both sedation/analgesia as well as necessary blood product administration, if indicated, as they pertain to this patient. The patient has indicated understanding and acceptance of the risks and procedures discussed. Questions have been answered appropriately and she is agreeable to move forward with the above stated procedure. Smoking cessation recommended, the patient became extremely agitated and angry when this was discussed. She states she is trying very hard to quit smoking but it is been extremely difficult. Further recommendations to follow based upon clinical course. Thank you kindly for this consultation. Nurse Practitioner note has been reviewed, I agree with a documented findings and plan of care. Patient was seen and examined. Past Medical History Past Medical History: Myocardial Infarction (ID) Additional Past Medical History / Comment(s): valve regurgitation. Last Myocardial Infarction Date:: 2017 History of Any Multi-Drug Resistant Organisms: None Reported Past Surgical History: Heart Catheterization, Heart Catheterization With Stent Past Anesthesia/Blood Transfusion Reactions: No Reported Reaction Date of Last Stent Placement:: unknown Past Psychological History: No Psychological Hx Reported Smoking Status: Current every day smoker Past Alcohol Use History: None Reported Past Drug Use History: None Reported - Past Family History Mother Family Medical History: Myocardial Infarction (ID) Medications and Allergies Home Medications Medication Instructions Recorded Confirmed Type Aspirin EC [Ecotrin Low Dose] 81 mg PO DAILY 07/19/19 06/17/20 History Buta/APAP/Caf/Cod 08-705-57-30 1 cap PO Q4H PRN 07/19/19 06/17/20 History [Fioricet w/Cod 21-948-31-30MG] Clopidogrel [Plavix] 75 mg PO DAILY 07/19/19 06/17/20 History Pantoprazole Sodium [Protonix] 40 mg PO BID 07/19/19 06/17/20 History Atorvastatin [Lipitor] 80 mg PO HS #30 tab 07/21/19 06/17/20 Rx lisinopriL [Zestril] 5 mg PO DAILY #30 tab 07/21/19 06/17/20 Rx Dicyclomine [Bentyl] 20 mg PO QID PRN 11/25/19 06/17/20 History Dextroamphetamine/Amphetamine 15 mg PO DAILY 06/17/20 06/17/20 History [Dextroamp-Amphetamin 15 mg Tab] Ibuprofen [Advil] 800 mg PO DAILY PRN 06/17/20 06/17/20 History Metoprolol Tartrate 25 mg PO DAILY 06/17/20 06/17/20 History Allergies Allergy/AdvReac Type Severity Reaction Status Date / Time hydromorphone [From Dilaudid] Allergy Mild Itching Verified 06/17/20 18:07 acetaminophen [From Vicodin] Allergy Rash/Hives Verified 06/17/20 18:07 hydrocodone [From Vicodin] Allergy Rash/Hives Verified 06/17/20 18:07 Physical Exam Vitals: Vital Signs Temp Pulse Pulse Resp BP BP Pulse Ox 06/18/20 08:00 97.3 F L 62 16 123/66 99 06/18/20 02:00 97.8 F 63 16 118/76 95 06/17/20 20:00 98.0 F 64 18 132/64 97 06/17/20 18:00 98.3 F 68 18 132/66 96 06/17/20 17:20 76 18 136/74 96 06/17/20 17:00 73 18 134/62 96 06/17/20 16:40 72 18 157/85 97 06/17/20 16:30 75 18 126/58 98 06/17/20 16:20 71 18 140/88 96 06/17/20 15:32 98.4 F 86 18 167/69 97 Intake and Output 06/17/20 06/18/20 06/18/20 22:59 06:59 14:59 Other: Voiding Method Toilet Toilet # Voids 1 1 Weight 81.647 kg Results 06/18/20 05:10 06/18/20 05:10 Cardiac Enzymes 06/17/20 06/17/20 06/17/20 Range/Units 15:59 15:59 18:55 AST 27 (14-36) U/L Troponin I <0.012 <0.012 (0.000-0.034) ng/mL 06/17/20 Range/Units 22:21 AST (14-36) U/L Troponin I <0.012 (0.000-0.034) ng/mL Coagulation 06/17/20 Range/Units 15:59 PT 9.6 (9.0-12.0) sec APTT 24.6 (22.0-30.0) sec CBC 06/17/20 Range/Units 15:59 WBC 9.6 (3.8-10.6) k/uL RBC 4.70 (3.80-5.40) m/uL Hgb 14.2 (11.4-16.0) gm/dL Hct 40.9 (34.0-46.0) % Plt Count 179 (150-450) k/uL Comprehensive Metabolic Panel 06/17/20 Range/Units 15:59 Sodium 140 (137-145) mmol/L Potassium 4.0 (3.5-5.1) mmol/L Chloride 109 H (98-107) mmol/L Carbon Dioxide 21 L (22-30) mmol/L BUN 9 (7-17) mg/dL Creatinine 0.62 (0.52-1.04) mg/dL Glucose 115 H (74-99) mg/dL Calcium 9.6 (8.4-10.2) mg/dL AST 27 (14-36) U/L ALT 32 (4-34) U/L Alkaline Phosphatase 81 (38-126) U/L Total Protein 7.3 (6.3-8.2) g/dL Albumin 4.5 (3.5-5.0) g/dL Current Medications Generic Name Dose Route Start Last Admin Trade Name Freq PRN Reason Stop Dose Admin Acetam/Butalbital/Caffeine/Codeine 1 each 06/17/20 18:26 Buta/Apap/Caf/Cod 54-656-23-30 Cap PO Q4H PRN Migraine Headache Alprazolam 0.25 mg 06/17/20 18:27 Alprazolam 0.25 Mg Tab PO TID PRN Anxiety Aspirin 81 mg 06/18/20 09:00 Aspirin 81 Mg PO DAILY [facility] Atorvastatin Calcium 80 mg 06/17/20 21:00 06/17/20 20:30 Atorvastatin 80 Mg Tab PO 80 mg HS [facility] Administration Clopidogrel Bisulfate 75 mg 06/18/20 09:00 Clopidogrel 75 Mg Tab PO DAILY [facility] Dicyclomine HCl 20 mg 06/17/20 18:26 06/17/20 20:30 Dicyclomine 20 Mg Tab PO 20 mg QID PRN Administration GI Upset Ibuprofen 800 mg 06/17/20 18:26 Ibuprofen 800 Mg Tab PO DAILY PRN Pain Lisinopril 5 mg 06/18/20 09:00 Lisinopril 5 Mg Tab PO DAILY [facility] Metoprolol Tartrate 25 mg 06/18/20 09:00 Metoprolol Tartrate 25 Mg Tab PO DAILY [facility] Morphine Sulfate 4 mg 06/17/20 17:20 06/18/20 04:30 Morphine Sulfate 4 Mg/Ml Syringe IV 4 mg Q4HR PRN Administration Severe Pain Naloxone HCl 0.2 mg 06/17/20 17:20 Naloxone 0.4 Mg/Ml 1 Ml Vial IV Q2M PRN Opioid Reversal Nicotine 1 patch 06/17/20 18:30 06/17/20 20:30 Nicotine 14mg/24hr Patch TRANSDERM Not Given DAILY [facility] Nitroglycerin 0.4 mg 06/17/20 18:13 06/17/20 20:30 Nitroglycerin Sl Tabs 0.4 Mg Tab SUBLINGUAL 0.4 mg Q5M PRN Administration Chest Pain Adderall [Dextroamp- 15 mg 06/18/20 09:00 Amphetamin 15 Mg Tab PO ] DAILY [facility] Pantoprazole Sodium 40 mg 06/17/20 21:00 06/17/20 20:30 Pantoprazole 40 Mg Tablet PO 40 mg AC-BID [facility] Administration Temazepam 15 mg 06/17/20 18:27 Temazepam 15 Mg Cap PO HS PRN Insomnia Intake and Output 06/17/20 06/18/20 06/18/20 22:59 06:59 14:59 Other: Voiding Method Toilet Toilet # Voids 1 1 Weight 81.647 kg 06/17/20 15:59 06/17/20 15:59
[2020-06-18] MEDS ORDERED: LIDOCAINE 1% INJ 10MG/ML (20 ML MDV) ONE (12:15)
[2020-06-18] MEDS ORDERED: HEPARIN SODIUM 1,000 UN/ML (10ML VL) ONE (12:32)
[2020-06-18] MEDS ORDERED: VERAPAMIL 2.5 MG/ML 2 ML AMP ONE (12:32)
[2020-06-18] MEDS ORDERED: MIDAZOLAM 2 MG/2 ML VIAL IVP ONE (12:44)
[2020-06-18] MEDS ORDERED: IV FLUID CONTINUATION 550 ML IV ONE (12:45)
[2020-06-18] MEDS ORDERED: LIDOCAINE 1% INJ 10MG/ML (20 ML MDV) SQ ONE (12:47)
[2020-06-18] MEDS: VERAPAMIL SYRINGE (5 MG/10 ML) INTRAARTER ONE ×2 (12:48→12:59)
[2020-06-18] MEDS ORDERED: fentaNYL (PF) 50 MCG/ML 2 ML AMP ONE (12:53)
[2020-06-18] MEDS ORDERED: fentaNYL (PF) 50 MCG/ML 2 ML AMP IVP ONE (12:54)
[2020-06-18] MEDS ORDERED: HEPARIN SODIUM 1,000 UN/ML (10ML VL) IV ONE (12:58)
[2020-06-18] MEDS ORDERED: IOPAMIDOL-370 125ML BTL INJ ONE (13:02)
[2020-06-18] MEDS ORDERED: RX INFO: IV CONTRAST WAS GIVEN 1 EACH MISC MISCELLANE PRN (13:03)
[2020-06-18] MEDS ORDERED: SODIUM CHLORIDE 0.9% 1,000 ML IV SCH (13:15)
[2020-06-18] MEDS: DICYCLOMINE 20 MG TAB PO SCH ×2 (13:21→17:20)
[2020-06-18] MEDS: NICOTINE 14MG/24HR PATCH TRANSDERM SCH (13:21)
[2020-06-18] MEDS ORDERED: ISOSORBIDE MONONITRATE ER 30 MG TAB.ER.24H PO SCH (13:30)
[2020-06-18 13:40] VITALS: RESP 18; TEMP 97.6
--- NOTE | 2020-06-18 14:15 | CC ---
CARDIAC CATHETERIZATION REPORT DATE OF SERVICE: June 18, 2020. PERFORMING PHYSICIAN: Sheng Charles MD. PROCEDURE PERFORMED: Selective right and left coronary angiogram. INDICATION: Chest discomfort concerning for unstable angina in this 49-year-old female patient who is known to have coronary artery disease and prior stenting of the RCA and LCX. APPROACH: Right radial artery. COMPLICATION: None. LEVEL OF SEDATION: Moderate with sedation length of 13 minutes. PROCEDURE DESCRIPTION: After obtaining an informed consent, the patient was brought to the cardiac laborer general. The right radial artery was cannulated using micropuncture technique, the micropuncture wire passed easily then I placed a 6-Yoruba sheath in the right radial artery. The 2 mg of verapamil IA and 10,000 units of heparin were given. Subsequently, I did selective right and left coronary angiogram using JR4 and JL3.5 catheters. Left heart catheterization was not performed. The procedure was completed without any complication. SELECTIVE CORONARY ANGIOGRAM: 1. The Right Coronary Artery: The right coronary artery is a moderate to large caliber vessel. It is a dominant vessel. The proximal RCA has mild disease only and the RCA proximally is stented and the stent is patent. The mid RCA is stented and the stent is patent as well. Distal to the stent, there is an area of the plaque appeared to be in the range of 30% only. The RCA after that bifurcates into PDA and PLV branches. 2. The left main is angiographically normal. It bifurcates into LCX and LAD. 3. The LCX is a large caliber vessel. It is a nondominant vessel. The left circumflex is stented in the proximal and midportion and both the stents are patent. Distal to the stented segment in the midportion, there is a lesion appeared to be in the range of 30% to 40%. only. 4. The LAD is a large caliber vessel. The LAD appeared to have mild disease only. The LAD gives rise into a large diagonal branch which seems to be angiographically normal. CONCLUSION: 1. Patent stent in the RCA. The distal RCA has a lesion appeared to be in the range of 30%. 2. Normal left main coronary artery. 3. Patent stent in the left circumflex coronary artery. The left circumflex distal to a stented segment has a lesion appeared to be in the range of 40%. 4. Normal left anterior descending artery. POSTPROCEDURE MANAGEMENT: 1. Given the above anatomy, we advised the patient to be treated medically. 2. She will benefit from oral nitrate. 3. Follow up with the patient as an outpatient. ANABEL / YEIMYN: [id number] /
[2020-06-18 14:23] LABS: LDL Cholesterol,Calculated 88.4 mg/dL (0.0-131.0); VLDL Calculation 31.6 mg/dL (5.00-40.00)
[2020-06-18 17:22] VITALS: BP 127/66; PULSE 66
--- NOTE | 2020-06-18 23:32 | DS ---
DISCHARGE SUMMARY DATE OF SERVICE: 06/18/2020 FINAL DIAGNOSES: 1. Chest pain; possible unstable angina, status post cardiac catheterization and patent stents; possible coronary vasospasm. 2. History of myocardial infarction. 3. History of coronary artery disease, stent. 4. History of valvular regurgitation. 5. Continued ongoing nicotine dependence. 6. Obesity with body mass index of 31.9. DISCHARGE DISPOSITION: The patient will be discharged in stable condition with guarded prognosis. HISTORY OF PRESENT ILLNESS: This 49-year-old woman with a past medical history of multiple medical problems was admitted with chest pain. Myocardial infarction was Cardiology performed cardiac catheterization that showed patent stents and some stenosis. Please refer to the cardiac cath report for full report. Coronary vasospasm was suspected. Treated symptomatically, improved significantly. On exam, vital signs are stable. CARDIOVASCULAR SYSTEM: S1, S2 muffled. ABDOMEN: Soft. NERVOUS SYSTEM: No focal deficit. Discharge cleared by Cardiology. DISCHARGE ADVICE AND MEDICATIONS: 1. Diet is cardiac. 2. Activity limited until followup. 3. Follow up with Dr. Abrams in 2-3 days. 4. Follow up with Dr. Charles as recommended. 5. Advil p.r.n. 6. Bentyl p.r.n. 7. Dextroamphetamine 15 mg p.o. daily. 8. Ecotrin 81 mg p.o. daily. 9. Fioricet p.r.n. 10.Metoprolol 25 mg p.o. daily. 11.Plavix 75 mg p.o. daily. 12.Protonix 40 mg b.i.d. 13.Habitrol 14. 14.No smoking. 15.Imdur ER 30 mg daily. 16.Lipitor 80 mg at bedtime. 17.Nitrostat 0.4 sublingually p.r.n. 18.Zestril 5 mg p.o. daily. Once again, the patient will be discharged in stable condition with guarded prognosis. MMODL / IJN: [id number] / MTDD
[2020-06-19] MEDS ORDERED: HEPARIN SODIUM,PORCINE 10,000 UNIT in SODIUM CHLORIDE 0.9% 1,000 ML IRRIGATION PRN (07:00)
[2020-06-19] MEDS ORDERED: HEPARIN SODIUM,PORCINE 2,500 UNIT in SODIUM CHLORIDE 0.9% 250 ML IRRIGATION PRN (07:00)
[2020-06-19] MEDS ORDERED: ASPIRIN 81 MG PO SCH (09:00)
== END 2020-06-18 18:05 | disposition home or self-care (01) ==
LOC: EC 15:29 → 6NMEDSUR 17:21
PROVIDERS: ADMIT Hospitalist; ATTEND Hospitalist
DX: R07.89 Other chest pain (principal); R68.84 Jaw pain; I25.10 Atherosclerotic heart disease of native coronary artery without angina pectoris; I38 Endocarditis, valve unspecified; I25.2 Old myocardial infarction; F17.200 Nicotine dependence, unspecified, uncomplicated; E66.9 Obesity, unspecified; Z68.31 Body mass index [BMI] 31.0-31.9, adult; Z95.5 Presence of coronary angioplasty implant and graft; Z82.49 Family history of ischemic heart disease and other diseases of the circulatory system; Z79.02 Long term (current) use of antithrombotics/antiplatelets; Z79.82 Long term (current) use of aspirin; Z79.891 Long term (current) use of opiate analgesic; Z79.899 Other long term (current) drug therapy; Z88.5 Allergy status to narcotic agent; I10 Essential (primary) hypertension; E78.5 Hyperlipidemia, unspecified
CPT/HCPCS: 96376 ×2; 93005 ×2; 96365; 96366; 96375; 99285; 36415; 93306; 93454; 83880; 80061; 80053; 80048; 82150; 83690; 83735; 84484; 85025 ×2; 85610; 85730; 71046; G0378 ×2; C1769 ×4; C1894 ×2; J2250; J2270 ×2; J2001; J3010; J1644; Q9967

== ENCOUNTER 2022-02-28 22:17 | Observation (INO) | payer OTHER ==
[2022-02-28] MEDS ORDERED: ASPIRIN 81 MG PO STA (22:46)
[2022-02-28] MEDS ORDERED: NITROGLYCERIN OINT 1 INCH/GM PACKET TOPICAL STA (22:46)
[2022-02-28] MEDS ORDERED: SODIUM CHLORIDE 0.9% 500 ML 500 ML IV STA (22:46)
--- NOTE | 2022-02-28 23:13 | ED ---
General Adult HPI - General Chief complaint: Chest Pain Stated complaint: chest pain/Sob Time Seen by Provider: 02/28/22 22:30 Source: patient, RN notes reviewed Mode of arrival: ambulatory Limitations: no limitations - History of Present Illness Initial comments: Review 11-year-old female presents to the emergency department for evaluation of midsternal chest pain that radiates to the left jaw. Describes pain as a squeezing sensation accompanied by chest pressure. Has also had a headache and mild shortness of breath with the pain. Patient states this pain began yesterday and she was seen at a [facility] for the symptoms. Reports having 2 rounds of cardiac enzymes drawn while present in the emergency department there. States her EKG was normal and the enzymes were negative. Denies any aggravating or alleviating factors. Reports a cardiac history including 6 stents. Took sublingual nitro with no improvement. Denies fever, chills, sore throat, cough, congestion, abdominal pain, nausea, vomiting, diarrhea, or dysuria. - Related Data Home Medications Medication Instructions Recorded Confirmed Aspirin EC [Ecotrin Low Dose] 81 mg PO DAILY 07/19/19 06/17/20 Buta/APAP/Caf/Cod 30-918-82-30 1 cap PO Q4H PRN 07/19/19 06/17/20 [Fioricet w/Cod 76-129-30-30MG] Clopidogrel [Plavix] 75 mg PO DAILY 07/19/19 06/17/20 Pantoprazole Sodium [Protonix] 40 mg PO BID 07/19/19 06/17/20 Dicyclomine [Bentyl] 20 mg PO QID PRN 11/25/19 06/17/20 Dextroamphetamine/Amphetamine 15 mg PO DAILY 06/17/20 06/17/20 [Dextroamp-Amphetamin 15 mg Tab] Ibuprofen [Advil] 800 mg PO DAILY PRN 06/17/20 06/17/20 Metoprolol Tartrate 25 mg PO DAILY 06/17/20 06/17/20 Previous Rx's Medication Instructions Recorded Atorvastatin [Lipitor] 80 mg PO HS #30 tab 07/21/19 lisinopriL [Zestril] 5 mg PO DAILY #30 tab 07/21/19 Isosorbide Mononitrate ER [Imdur] 30 mg PO DAILY #90 tab.er.24h 06/18/20 Nicotine 14Mg/24Hr Patch [Habitrol] 1 patch TRANSDERM DAILY #30 patch 06/18/20 Nitroglycerin Sl Tabs [Nitrostat] 0.4 mg SUBLINGUAL Q5M PRN #20 tab 06/18/20 Allergies Allergy/AdvReac Type Severity Reaction Status Date / Time hydromorphone [From Dilaudid] Allergy Mild Itching Verified 02/28/22 22:25 acetaminophen [From Vicodin] Allergy Rash/Hives Verified 02/28/22 22:25 hydrocodone [From Vicodin] Allergy Rash/Hives Verified 02/28/22 22:25 Review of Systems ROS Statement: Those systems with pertinent positive or pertinent negative responses have been documented in the HPI. ROS Other: All systems not noted in ROS Statement are negative. Past Medical History Past Medical History: Myocardial Infarction ([place]) Additional Past Medical History / Comment(s): valve regurgitation. Last Myocardial Infarction Date:: 2017 History of Any Multi-Drug Resistant Organisms: None Reported Past Surgical History: Heart Catheterization, Heart Catheterization With Stent Past Anesthesia/Blood Transfusion Reactions: No Reported Reaction Date of Last Stent Placement:: unknown Past Psychological History: No Psychological Hx Reported Smoking Status: Current every day smoker Past Alcohol Use History: None Reported Past Drug Use History: None Reported - Past Family History Mother Family Medical History: Myocardial Infarction (AL) General Exam Limitations: no limitations General appearance: alert, in no apparent distress (Well-developed, well- nourished female in no acute distress, though does appear moderately uncomfortable.) Head exam: Present: atraumatic, normocephalic Eye exam: Present: normal appearance, PERRL, EOMI. Absent: scleral icterus, conjunctival injection Neck exam: Present: normal inspection, full ROM. Absent: tenderness, meningismus, lymphadenopathy Respiratory exam: Present: normal lung sounds bilaterally. Absent: respiratory distress, wheezes, rales, rhonchi, stridor, chest wall tenderness Cardiovascular Exam: Present: regular rate, normal rhythm, normal heart sounds, other (Patient endorses and sternal chest discomfort she describes as a pinching sensation with pressure radiating to her jaw. Pain is not reproducible.). Absent: systolic murmur, diastolic murmur, rubs, gallop, clicks GI/Abdominal exam: Present: soft, normal bowel sounds. Absent: distended, tenderness, guarding, rebound, rigid Extremities exam: Present: normal inspection, full ROM, normal capillary refill. Absent: tenderness, pedal edema, joint swelling, calf tenderness Neurological exam: Present: alert, oriented X3, CN II-XII intact Psychiatric exam: Present: anxious Skin exam: Present: warm, dry, intact, normal color. Absent: rash Course Vital Signs 02/28/22 02/28/22 02/28/22 22:23 22:53 23:45 Temperature 98.2 F Pulse Rate 80 71 62 Respiratory 20 16 16 Rate Blood Pressure 160/77 146/76 122/62 O2 Sat by Pulse 98 96 Oximetry 03/01/22 02:00 Temperature 98 F Pulse Rate 61 Respiratory 16 Rate Blood Pressure 106/50 O2 Sat by Pulse 96 Oximetry - Reevaluation(s) Reevaluation #1: 02/28/22 23:32 Upon reassessment (after application of Nitropaste), patient reports pain persists, though states the "pinching" sensation has diminished in severity. Requesting morphine for her headache and chest pain. Medical record reviewed. 03/01/22 00:15 Patient is resting comfortably at this time. Updated on results. She is agreeable with admission plan of care. I spoke with Dr. Adamson who agrees to accept this admission. Medical Decision Making - Medical Decision Making This is a 51-year-old female with a past medical history of CAD who presents to the emergency department for evaluation of midsternal chest pain, onset yesterday. Upon exam, patient appears moderately uncomfortable but is in no acute distress. Vital signs are stable. EKG shows normal sinus rhythm with no ectopy or ST segment changes. Patient was given aspirin, morphine, and Nitropaste with some improvement. Laboratory studies were obtained and were unremarkable. Troponin is negative. Given patient's cardiac history and persistent discomfort, she will be admitted to the hospital with consult to cardiology and serial cardiac enzymes. Patient was agreeable with this plan of care. This patient's care was discussed with my attending: Dr. Suggs. - Lab Data Result diagrams: 02/28/22 22:52 02/28/22 22:52 Lab Results 02/28/22 02/28/22 02/28/22 Range/Units 22:52 22:52 22:52 WBC 10.7 H (3.8-10.6) k/uL RBC 4.49 (3.80-5.40) m/uL Hgb 13.8 (11.4-16.0) gm/dL Hct 39.4 (34.0-46.0) % MCV 87.6 (80.0-100.0) fL MCH 30.7 (25.0-35.0) pg MCHC 35.0 (31.0-37.0) g/dL RDW 12.7 (11.5-15.5) % Plt Count 167 (150-450) k/uL MPV 8.5 Neutrophils % 62 % Lymphocytes % 30 % Monocytes % 4 % Eosinophils % 3 % Basophils % 1 % Neutrophils # 6.6 (1.3-7.7) k/uL Lymphocytes # 3.2 (1.0-4.8) k/uL Monocytes # 0.4 (0-1.0) k/uL Eosinophils # 0.3 (0-0.7) k/uL Basophils # 0.1 (0-0.2) k/uL PT 10.1 (9.0-12.0) sec INR 0.9 (<1.2) APTT 26.4 (22.0-30.0) sec Sodium 141 (137-145) mmol/L Potassium 3.5 (3.5-5.1) mmol/L Chloride 105 (98-107) mmol/L Carbon Dioxide 23 (22-30) mmol/L Anion Gap 13 mmol/L BUN 11 (7-17) mg/dL Creatinine 0.56 (0.52-1.04) mg/dL Est GFR (CKD-EPI)AfAm >90 (>60 ml/min/1.73 sqM) Est GFR (CKD-EPI)NonAf >90 (>60 ml/min/1.73 sqM) Glucose 117 H (74-99) mg/dL Calcium 9.5 (8.4-10.2) mg/dL Magnesium 1.8 (1.6-2.3) mg/dL Total Bilirubin 0.1 L (0.2-1.3) mg/dL AST 22 (14-36) U/L ALT 19 (4-34) U/L Alkaline Phosphatase 118 (38-126) U/L Troponin I (0.000-0.034) ng/mL Total Protein 6.9 (6.3-8.2) g/dL Albumin 4.5 (3.5-5.0) g/dL Lipase 153 (23-300) U/L 02/28/22 Range/Units 22:52 WBC (3.8-10.6) k/uL RBC (3.80-5.40) m/uL Hgb (11.4-16.0) gm/dL Hct (34.0-46.0) % MCV (80.0-100.0) fL MCH (25.0-35.0) pg MCHC (31.0-37.0) g/dL RDW (11.5-15.5) % Plt Count (150-450) k/uL MPV Neutrophils % % Lymphocytes % % Monocytes % % Eosinophils % % Basophils % % Neutrophils # (1.3-7.7) k/uL Lymphocytes # (1.0-4.8) k/uL Monocytes # (0-1.0) k/uL Eosinophils # (0-0.7) k/uL Basophils # (0-0.2) k/uL PT (9.0-12.0) sec INR (<1.2) APTT (22.0-30.0) sec Sodium (137-145) mmol/L Potassium (3.5-5.1) mmol/L Chloride (98-107) mmol/L Carbon Dioxide (22-30) mmol/L Anion Gap mmol/L BUN (7-17) mg/dL Creatinine (0.52-1.04) mg/dL Est GFR (CKD-EPI)AfAm (>60 ml/min/1.73 sqM) Est GFR (CKD-EPI)NonAf (>60 ml/min/1.73 sqM) Glucose (74-99) mg/dL Calcium (8.4-10.2) mg/dL Magnesium (1.6-2.3) mg/dL Total Bilirubin (0.2-1.3) mg/dL AST (14-36) U/L ALT (4-34) U/L Alkaline Phosphatase (38-126) U/L Troponin I <0.012 (0.000-0.034) ng/mL Total Protein (6.3-8.2) g/dL Albumin (3.5-5.0) g/dL Lipase (23-300) U/L - EKG Data EKG shows normal: sinus rhythm Rate: normal EKG Comments: EKG obtained at 2231 shows sinus rhythm. Ventricular rate 70, NM interval 176, QRS duration 98, QT/QTC 399/420. Interpretation: Normal ECG. - Radiology Data Radiology results: report reviewed, image reviewed Two-view chest x-ray was obtained. Report was reviewed in its entirety. I mpression per Dr. Neal is normal chest. No change. Disposition Clinical Impression: Chest pain, rule out acute myocardial infarction Disposition: ADMITTED IP TO THIS [facility] Condition: Serious Decision Date: 03/01/22 Decision Time: 00:22
[2022-02-28 23:15] LABS: Basophils # (A) 0.1 k/uL (0-0.2); Basophils % (A) 1 %; Eosinophils # (A) 0.3 k/uL (0-0.7); Eosinophils % (A) 3 %; HCT 39.4 % (34.0-46.0); HGB 13.8 gm/dL (11.4-16.0); Lymphocytes # (A) 3.2 k/uL (1.0-4.8); Lymphocytes % (A) 30 %; MCH 30.7 pg (25.0-35.0); MCV 87.6 fL (80.0-100.0); Mean Platelet Volume 8.5; Monocytes # (A) 0.4 k/uL (0-1.0); Monocytes % (A) 4 %; Neutrophils # (A) 6.6 k/uL (1.3-7.7); Neutrophils % (A) 62 %; Platelet Count 167 k/uL (150-450); RBC 4.49 m/uL (3.80-5.40); RDW 12.7 % (11.5-15.5); WBC 10.7 k/uL (3.8-10.6)
[2022-02-28 23:29] LABS: INR 0.9 (<1.2); Partial Thromboplastin Time 26.4 sec (22.0-30.0); Prothrombin Time 10.1 sec (9.0-12.0)
[2022-02-28] MEDS ORDERED: MORPHINE SULFATE 4 MG/ML SYRINGE IVP STA (23:31)
[2022-02-28 23:42] LABS: ALT 19 U/L (4-34); AST 22 U/L (14-36); African American GFR (CKD) >90 (>60 ml/min/1.73 sqM); Albumin 4.5 g/dL (3.5-5.0); Alkaline Phosphatase 118 U/L (38-126); Anion Gap 13 mmol/L; Blood Urea Nitrogen 11 mg/dL (7-17); Calcium 9.5 mg/dL (8.4-10.2); Carbon Dioxide 23 mmol/L (22-30); Chloride 105 mmol/L (98-107); Glucose 117 mg/dL (74-99); Lipase 153 U/L (23-300); Magnesium 1.8 mg/dL (1.6-2.3); Non-African American GFR(CKD) >90 (>60 ml/min/1.73 sqM); Potassium 3.5 mmol/L (3.5-5.1); Sodium 141 mmol/L (137-145); Total Bilirubin 0.1 mg/dL (0.2-1.3); Total Protein 6.9 g/dL (6.3-8.2)
--- NOTE | 2022-03-01 00:08 | XR ---
EXAMINATION TYPE: XR chest 2V DATE OF EXAM: 02/28/2022 COMPARISON: 06/17/2020 HISTORY: Chest pain TECHNIQUE: 2 views FINDINGS: Heart and mediastinum are normal. Lungs are clear. Diaphragm is normal. Bony thorax is inta ct. There are chest leads. IMPRESSION: Normal chest. No change.
[2022-03-01] MEDS ORDERED: ACETAMINOPHEN TAB 325 MG TAB PO PRN (00:16)
[2022-03-01] MEDS ORDERED: NALOXONE 0.4 MG/ML 1 ML VIAL IV PRN (00:16)
[2022-03-01] MEDS ORDERED: MORPHINE SULFATE 4 MG/ML SYRINGE IV PRN (00:16)
[2022-03-01] MEDS ORDERED: REGADENOSON 0.4 MG/5 ML SYRINGE IV PRN (08:24)
[2022-03-01] MEDS ORDERED: AMINOPHYLLINE 500 MG/20 ML VIAL IV PRN (08:24)
[2022-03-01] MEDS ORDERED: CAFFEINE CITRATE 60 MG/3 ML VIAL IV PRN (08:24)
--- NOTE | 2022-03-01 09:12 | P.CRDCN ---
History of Present Illness History of present illness: HISTORY OF PRESENTING ILLNESS This is a pleasant 51-year-old female past medical history significant for coronary artery disease status post prior stenting of the RCA and left circumflex in 2019, carotid stenosis, hypertension, dyslipidemia, chronic nicotine dependence, family history of coronary artery disease. She follows in the office with Dr. Charles. We have been asked to see in consultation for chest pain. Patient presents to the emergency department with complaints of chest discomfort. She states it started on Tuesday, she was sitting on the couch and had chest pressure, describes it as a tightness and squeezing pain. It was nonexertional. Radiation to her left jaw. She states that she was actually recently in the [facility] for evaluation of similar chest pain, she states an EKG and blood work was performed and she was discharged home. Secondary to her second episode at home she presented to [facility] for further evaluation. She denies any shortness of breath, nausea, diaphoresis, lightheadedness or dizziness. She continues to smoke, and does not plan to quit at this time. Family history includes mother had CABG, father of an [place], grandparents, uncles and aunts all with coronary artery disease. DIAGNOSTICS * EKG reveals sinus rhythm, heart rate 70, no significant STT wave abnormalities suggesting acute ischemia. Prior EKG was similar findings * Echocardiogram in the office 09/2021 revealed EF 5560 percent, moderate to severe aortic regurgitation, mild mitral regurgitation, mild tricuspid regurgitation * Last Cardiac Catheterization 06/2020 revealed patent stent in the RCA, distal RCA has a lesion appeared to be in the range of 30%, normal left main coronary artery, patent stent in the left circumflex, distal to the stented segment of the left circumflex is a lesion of 40%, normal LAD. * Chest xray no acute cardiopulmonary process. * Laboratory reviewed, troponin negative 3, WBC 10.7, sodium 141, potassium 2.5, BUN 11, serum creatinine 0.5, magnesium 1.8 * Current home medications include metoprolol sustained 25 mg daily, Zetia 10 mg daily, atorvastatin 80 mg nightly, Plavix 75 mg daily REVIEW OF SYSTEMS At the time of my exam: CONSTITUTIONAL: Denies fever or chills. CARDIOVASCULAR: Denies chest pain, shortness of breath, orthopnea, PND or palpitations. RESPIRATORY: Denies cough. GASTROINTESTINAL: Denies abdominal pain, diarrhea, constipation, nausea or vomiting. MUSCULOSKELETAL: Denies myalgias. NEUROLOGIC: Denies numbness, tingling, headache or weakness. ENDOCRINE: Denies fatigue, weight change, polydipsia or polyurina. GENITOURINARY: Denies burning, hematuria or urgency with micturation. HEMATOLOGIC: Denies history of anemia or bleeding. PHYSICAL EXAMINATION Blood pressure 122/69, heart 61, afebrile, saturations 95% on room air CONSTITUTIONAL: No apparent distress. HEENT: Head is normocephalic. Pupils are equal, round. Sclerae anicteric. Mucous membranes of the mouth are moist. No JVD. No carotid bruit. CHEST EXAMINATION: Lungs are clear to auscultation. No chest wall tenderness is noted on palpation or with deep breathing. HEART EXAMINATION: Regular rate and rhythm. S1, S2 heard. Short diastolic murmur at the right sternal border, no gallops or rub. ABDOMEN: Soft, nontender. Positive bowel sounds. EXTREMITIES: 2+ peripheral pulses, no lower extremity edema and no calf tenderness. SKIN: Warm, dry NEUROLOGIC EXAMINATION: Patient is awake, alert and oriented x3. ASSESSMENT Chest pain, acute coronary syndrome has ruled out Coronary artery disease status post prior stenting of the RCA and left circumflex in 2019 Carotid stenosis Hypertension Dyslipidemia Chronic nicotine dependence Family history of coronary artery disease PLAN An acute coronary event has been ruled out with no EKG evidence of ischemia and negative cardiac enzymes. Obtain 2D echocardiogram and doppler study to assess aortic regurgitation Perform Lexiscan stress test to assess for stress induced cardiac ischemia. If abnormal will consider coronary angiography. Smoking cessation discussed and highly recommended. If stress test negative for reversible ischemia, no further inpatient workup from a cardiology perspective. Follow up with Dr. Charles outpatient Thank you kindly for this consultation. Nurse practitioner note has been reviewed by physician. Signing provider agrees with the documented findings, assessment, and plan of care. Past Medical History Past Medical History: Myocardial Infarction ([place]) Additional Past Medical History / Comment(s): valve regurgitation. Last Myocardial Infarction Date:: 2017 History of Any Multi-Drug Resistant Organisms: None Reported Past Surgical History: Heart Catheterization, Heart Catheterization With Stent Past Anesthesia/Blood Transfusion Reactions: No Reported Reaction Date of Last Stent Placement:: unknown Past Psychological History: No Psychological Hx Reported Smoking Status: Current every day smoker Past Alcohol Use History: None Reported Past Drug Use History: None Reported - Past Family History Mother Family Medical History: Myocardial Infarction ([place]) Medications and Allergies Home Medications Medication Instructions Recorded Confirmed Type Buta/APAP/Caf/Cod 25-187-14-30 1 cap PO Q4H PRN 07/19/19 03/01/22 History [Fioricet w/Cod 70-565-35-30MG] Clopidogrel [Plavix] 75 mg PO DAILY 07/19/19 03/01/22 History Pantoprazole Sodium [Protonix] 40 mg PO BID 07/19/19 03/01/22 History Atorvastatin [Lipitor] 80 mg PO HS #30 tab 07/21/19 03/01/22 Rx Dextroamphetamine/Amphetamine 25 mg PO DAILY 03/01/22 03/01/22 History [Adderall Xr 25 mg Capsule] Ezetimibe [Zetia] 10 mg PO DAILY 03/01/22 03/01/22 History Metoclopramide [Reglan] 5 mg PO AC-BID 03/01/22 03/01/22 History Metoprolol Succinate [Metoprolol 25 mg PO DAILY 03/01/22 03/01/22 History Succinate ER] Allergies Allergy/AdvReac Type Severity Reaction Status Date / Time hydromorphone [From Dilaudid] Allergy Mild Itching Verified 03/01/22 06:53 acetaminophen [From Vicodin] Allergy Rash/Hives Verified 03/01/22 06:53 hydrocodone [From Vicodin] Allergy Rash/Hives Verified 03/01/22 06:53 Physical Exam Vitals: Vital Signs Temp Pulse Resp BP Pulse Ox 03/01/22 06:41 97.6 F 73 18 118/62 95 03/01/22 02:00 98 F 61 16 106/50 96 02/28/22 23:45 62 16 122/62 96 02/28/22 22:53 71 16 146/76 98 02/28/22 22:23 98.2 F 80 20 160/77 Intake and Output 02/28/22 03/01/22 03/01/22 22:59 06:59 14:59 Other: Weight 72.575 kg Results 02/28/22 22:52 02/28/22 22:52 Cardiac Enzymes 02/28/22 02/28/22 03/01/22 Range/Units 22:52 22:52 01:53 AST 22 (14-36) U/L Troponin I <0.012 <0.012 (0.000-0.034) ng/mL 03/01/22 Range/Units 05:21 AST (14-36) U/L Troponin I <0.012 (0.000-0.034) ng/mL Coagulation 02/28/22 Range/Units 22:52 PT 10.1 (9.0-12.0) sec APTT 26.4 (22.0-30.0) sec CBC 02/28/22 Range/Units 22:52 WBC 10.7 H (3.8-10.6) k/uL RBC 4.49 (3.80-5.40) m/uL Hgb 13.8 (11.4-16.0) gm/dL Hct 39.4 (34.0-46.0) % Plt Count 167 (150-450) k/uL Comprehensive Metabolic Panel 02/28/22 Range/Units 22:52 Sodium 141 (137-145) mmol/L Potassium 3.5 (3.5-5.1) mmol/L Chloride 105 (98-107) mmol/L Carbon Dioxide 23 (22-30) mmol/L BUN 11 (7-17) mg/dL Creatinine 0.56 (0.52-1.04) mg/dL Glucose 117 H (74-99) mg/dL Calcium 9.5 (8.4-10.2) mg/dL AST 22 (14-36) U/L ALT 19 (4-34) U/L Alkaline Phosphatase 118 (38-126) U/L Total Protein 6.9 (6.3-8.2) g/dL Albumin 4.5 (3.5-5.0) g/dL Current Medications Generic Name Dose Route Start Last Admin Trade Name Freq PRN Reason Stop Dose Admin Acetaminophen 650 mg 03/01/22 00:16 Acetaminophen Tab 325 Mg Tab PO Q6HR PRN Mild Pain or Fever > 100.5 Aspirin 81 mg 03/01/22 09:00 Aspirin 81 Mg PO DAILY REPLACED BY [facility] Atorvastatin Calcium 80 mg 03/01/22 21:00 Atorvastatin 80 Mg Tab PO HS REPLACED BY [facility] Clopidogrel Bisulfate 75 mg 03/01/22 09:00 Clopidogrel 75 Mg Tab PO DAILY REPLACED BY [facility] Famotidine 20 mg 03/01/22 09:00 Famotidine 20 Mg Tab PO BID REPLACED BY [facility] Lisinopril 5 mg 03/01/22 09:00 Lisinopril 5 Mg Tab PO DAILY REPLACED BY [facility] Metoprolol Succinate 25 mg 03/01/22 09:00 Metoprolol Succinate (Er) 25 Mg Tab.Er.24h PO DAILY REPLACED BY [facility] Morphine Sulfate 4 mg 03/01/22 00:16 03/01/22 06:39 Morphine Sulfate 4 Mg/Ml Syringe IV 4 mg Q4HR PRN Administration Severe Pain (Scale 7 to 10) Naloxone HCl 0.2 mg 03/01/22 00:16 Naloxone 0.4 Mg/Ml 1 Ml Vial IV Q2M PRN Opioid Reversal Intake and Output 02/28/22 03/01/22 03/01/22 22:59 06:59 14:59 Other: Weight 72.575 kg 02/28/22 22:52 02/28/22 22:52
[2022-03-01] MEDS ORDERED: BUTA/APAP/CAF/COD 50-325-40-30 CAP PO PRN (09:17)
[2022-03-01] MEDS ORDERED: DEXTROAMPHETAMINE PO SCH (09:30)
[2022-03-01] MEDS ORDERED: AMPHETAMINE PO SCH (09:30)
[2022-03-01] MEDS ORDERED: [UNRECOGNIZED DRUG - OTHER] PO SCH (09:30)
[2022-03-01] MEDS: CLOPIDOGREL 75 MG TAB PO SCH (11:20)
[2022-03-01] MEDS: ASPIRIN 81 MG PO SCH (11:20)
[2022-03-01] MEDS: FAMOTIDINE 20 MG TAB PO SCH ×2 (11:20→20:32)
[2022-03-01] MEDS: lisinopriL 5 MG TAB PO SCH (11:20)
[2022-03-01] MEDS: METOPROLOL SUCCINATE (ER) 25 MG TAB.ER.24H PO SCH (11:20)
[2022-03-01] MEDS: METOCLOPRAMIDE 5 MG TAB PO SCH ×2 (11:25→17:31)
[2022-03-01] MEDS: EZETIMIBE 10 MG TAB PO SCH (11:25)
[2022-03-01] MEDS: PANTOPRAZOLE 40 MG TABLET PO SCH ×2 (11:25→17:31)
[2022-03-01] MEDS: DICYCLOMINE 10 MG CAP PO SCH ×2 (13:31→17:31)
[2022-03-01] MEDS: NICOTINE 14MG/24HR PATCH TRANSDERM SCH ×2 (13:31→14:48)
--- NOTE | 2022-03-01 17:25 | P.HPIM ---
History of Present Illness H&P Date: 03/01/22 Chief Complaint: Chest pain History of presenting complaint: This is a pleasant [address] Axel Abrams. 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 3 stents placed in 2018 and in 2013. Chronic stable medical conditions include hyperlipidemia, peptic ulcer disease, GERD, bowel spasms. July 2019 had a stent of the left circumflex ostium. October 2019, RCA was angioplastied and stented. has continued to smoke. About 9 PM last night patient started feeling a heaviness in the chest. Started coming and going. Sharp and dull both. It went to his neck and arm. Short of breath. Last for several hours. Patient recently lost his brother. He has been quite anxious and stressed. The day before she had some chest pain also passed out. Admitted unstable angina. Troponin was negative. 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 Denies use of any recreational drugs or alcohol. Does smoke half a pack a day for over 35 years Family history: Reviewed, noncontributory to presentation Physical examination: VITAL SIGNS: 98.2, 80, 20, 160/77, 98% room air GENERAL: BMI 27.5, laying in bed, bit anxious EYES: Pupils equal. Conjunctiva normal. HEENT: External appearance of nose and ears normal, oral cavity grossly normal. NECK: JVD not raised; masses not palpable. HEART: First and second heart sounds are normal; no edema. LUNGS: Respiratory rate normal; decreased breath sounds. ABDOMEN: Soft, nontender, liver spleen not palpable, no masses palpable. PSYCH: Alert and oriented x3; mood and affect anxiousl. NEUROLOGICAL: Cranial nerves grossly intact; no facial asymmetry, power and sensation grossly intact. LYMPHATICS: No lymph nodes palpable in the axilla and neck Investigations: WBC 10.7 hemoglobin 13.8 platelets 167 progression 3.5 creatinine 0.56 Troponin I 3 negative EKG tracing personally reviewed by ak-normal sinus rhythm. Chest x-ray film personally reviewed by me-hyperinflation Assessment and plan: -Unstable angina in a patient with known coronary artery disease with stents, Aspirin, Lipitor, Plavix, Toprol-XL. Cardiology consulted. Troponin is negative. For stress test -CAD with prior stents. Aspirin, Lipitor, Plavix, Toprol-XL -Chronic nicotine dependence patient cigarette smoker Nicotine patch -COPD in a current smoker Albuterol when necessary -Essential hypertension Toprol-XL, Zestril -Hyperlipidemia Lipitor -Peptic ulcer disease Pepcid -GERD Pepcid -Chronic bowel spasms Mental when necessary Telemetry. Home medications continued. Cardiology consulted. For nuclear stress test tomorrow. Care was discussed with the patient. Questions answered. Nicotine patch. Past Medical History Past Medical History: Heart Failure, Myocardial Infarction ([place]) Additional Past Medical History / Comment(s): valve regurgitation. Last Myocardial Infarction Date:: 2017 History of Any Multi-Drug Resistant Organisms: None Reported Past Surgical History: Heart Catheterization, Heart Catheterization With Stent Additional Past Surgical History / Comment(s): 6 stents Past Anesthesia/Blood Transfusion Reactions: No Reported Reaction Date of Last Stent Placement:: unknown Past Psychological History: No Psychological Hx Reported Smoking Status: Current every day smoker Past Alcohol Use History: None Reported Past Drug Use History: None Reported - Past Family History Mother Family Medical History: Myocardial Infarction ([place]) Medications and Allergies Home Medications Medication Instructions Recorded Confirmed Type Buta/APAP/Caf/Cod 43-886-18-30 1 cap PO Q4H PRN 07/19/19 03/01/22 History [Fioricet w/Cod 16-137-12-30MG] Clopidogrel [Plavix] 75 mg PO DAILY 07/19/19 03/01/22 History Pantoprazole Sodium [Protonix] 40 mg PO BID 07/19/19 03/01/22 History Atorvastatin [Lipitor] 80 mg PO HS #30 tab 07/21/19 03/01/22 Rx Dextroamphetamine/Amphetamine 25 mg PO DAILY 03/01/22 03/01/22 History [Adderall Xr 25 mg Capsule] Ezetimibe [Zetia] 10 mg PO DAILY 03/01/22 03/01/22 History Metoclopramide [Reglan] 5 mg PO AC-BID 03/01/22 03/01/22 History Metoprolol Succinate [Metoprolol 25 mg PO DAILY 03/01/22 03/01/22 History Succinate ER] Allergies Allergy/AdvReac Type Severity Reaction Status Date / Time hydromorphone [From Dilaudid] Allergy Mild Itching Verified 03/01/22 06:53 acetaminophen [From Vicodin] Allergy Rash/Hives Verified 03/01/22 06:53 hydrocodone [From Vicodin] Allergy Rash/Hives Verified 03/01/22 06:53 Physical Exam Vitals: Vital Signs Temp Pulse Pulse Resp BP BP Pulse Ox 03/01/22 16:15 98.1 F 61 18 125/69 96 03/01/22 14:00 61 18 03/01/22 08:40 97.8 F 61 18 122/69 95 03/01/22 08:00 20 03/01/22 06:41 97.6 F 73 18 118/62 95 03/01/22 02:00 98 F 61 16 106/50 96 02/28/22 23:45 62 16 122/62 96 02/28/22 22:53 71 16 146/76 98 02/28/22 22:23 98.2 F 80 20 160/77 Intake and Output 03/01/22 03/01/22 03/01/22 06:59 14:59 22:59 Other: # Voids 3 Weight 72.57 kg Results CBC & Chem 7: 02/28/22 22:52 02/28/22 22:52 Labs: Abnormal Lab Results - Last 24 Hours (Table) 02/28/22 02/28/22 Range/Units 22:52 22:52 WBC 10.7 H (3.8-10.6) k/uL Glucose 117 H (74-99) mg/dL Total Bilirubin 0.1 L (0.2-1.3) mg/dL Thrombosis Risk Factor Assmnt - Choose All That Apply Each Factor Represents 1 point: Age 41-60 years, Heart failure (<1month) Other Risk Factors: No Thrombosis Risk Factor Assessment Total Risk Factor Score: 2 Thrombosis Risk Factor Assessment Level: Low Risk
--- NOTE | 2022-03-01 17:30 | CA ---
Transthoracic Echo Report Name: Marleen Malcolm Age: 51 Gender: F : 1970 Exam Date: 03/01/2022 09:05 Exam Location: [facility] Ht (in): 64 Wt (lb): 160 Ordering Physician: [place] Olivares Attending/Referring Phys: High Value Associate Brianna Delacruz RDCS Procedure CPT: Indications: aortic regurgitation Cardiac Hx: Technical Quality: Fair Contrast 1: Total Dose (mL): Contrast 2: Total Dose (mL): MEASUREMENTS (Male / Female) Normal Values 2D ECHO LV Diastolic Diameter PLAX 4.5 cm 4.2 - 5.9 / 3.9 - 5.3 cm LV Systolic Diameter PLAX 2.8 cm IVS Diastolic Thickness 1.2 cm 0.6 - 1.0 / 0.6 - 0.9 cm LVPW Diastolic Thickness 1.2 cm 0.6 - 1.0 / 0.6 - 0.9 cm LV Relative Wall Thickness 0.5 RV Internal Dim ED PLAX 3.8 cm LA Volume 44.8 cm??? 18 - 58 / 22 - 52 cm??? M-MODE Aortic Root Diameter MM 3.1 cm LA Systolic Diameter MM 3.6 cm LA Ao Ratio MM 1.2 AV Cusp Separation MM 1.9 cm DOPPLER AV Peak Velocity 158.7 cm/s AV Peak Gradient 10.1 mmHg AI Peak Velocity 461.4 cm/s AI Peak Gradient 85.1 mmHg AI Pressure Half Time 706.2 ms LVOT Peak Velocity 121.5 cm/s LVOT Peak Gradient 5.9 mmHg MV Area PHT 3.0 cm??? Mitral E Point Velocity 113.1 cm/s Mitral A Point Velocity 91.3 cm/s Mitral E to A Ratio 1.2 MV Deceleration Time 256.0 ms MV E' Velocity 10.1 cm/s Mitral E to MV E' Ratio 11.2 TR Peak Velocity 268.3 cm/s TR Peak Gradient 28.8 mmHg Right Ventricular Systolic Press 31.8 mmHg FINDINGS Left Ventricle Mildly increased left ventricular wall thickness. Normal left ventricular systolic function with no obvious regional wall motion abnormalities. Left ventricular ejection fraction is estimated at 55-60 %. Right Ventricle Mild right ventricular dilatation. Right ventricular systolic pressure within normal limits. Right Atrium Normal right atrial size. Left Atrium Normal left atrial size. Mitral Valve Structurally normal mitral valve. No mitral stenosis, regurgitation or prolapse. Aortic Valve No aortic stenosis. Mild aortic regurgitation. Tricuspid Valve Structurally normal tricuspid valve. Mild tricuspid regurgitation. Pulmonic Valve Trace pulmonic regurgitation. Pericardium No pericardial effusion. Aorta Normal size aortic root and proximal ascending aorta. CONCLUSIONS Normal LV systolic function Mild mitral regurgitation Previewed by: Dr. Shan Sanches MD (Electronically Signed) Final Date: 01 March 2022 17:29
[2022-03-01] MEDS ORDERED: ATORVASTATIN 80 MG TAB PO SCH (21:00)
[2022-03-02] MEDS: METOCLOPRAMIDE 5 MG TAB PO SCH (06:34)
[2022-03-02] MEDS: DICYCLOMINE 10 MG CAP PO SCH ×2 (06:34→12:13)
[2022-03-02] MEDS: PANTOPRAZOLE 40 MG TABLET PO SCH (06:34)
[2022-03-02] MEDS: ASPIRIN 81 MG PO SCH (07:56)
[2022-03-02] MEDS: CLOPIDOGREL 75 MG TAB PO SCH (07:56)
[2022-03-02] MEDS: FAMOTIDINE 20 MG TAB PO SCH (07:56)
[2022-03-02] MEDS: METOPROLOL SUCCINATE (ER) 25 MG TAB.ER.24H PO SCH (07:56)
[2022-03-02] MEDS: lisinopriL 5 MG TAB PO SCH (07:56)
[2022-03-02] MEDS: EZETIMIBE 10 MG TAB PO SCH (07:56)
[2022-03-02] MEDS: NICOTINE 14MG/24HR PATCH TRANSDERM SCH (07:57)
[2022-03-02 08:03] VITALS: BP 120/49; PULSE 50; RESP 15; TEMP 97.8
[2022-03-02] MEDS ORDERED: REGADENOSON 0.4 MG/5 ML SYRINGE IV ONE (09:00)
[2022-03-02 10:17] LABS: Basophils # (A) 0.03 X 10*3/uL (0.00-0.10); Basophils % (A) 0.4 %; Eosinophils # (A) 0.15 X 10*3/uL (0.04-0.35); Eosinophils % (A) 1.8 %; HCT 35.4 % (37.2-46.3); HGB 11.8 g/dL (12.0-15.0); Immature Grans, Automated 0.4 %; Lymphocytes # (A) 2.34 X 10*3/uL (0.90-5.00); Lymphocytes % (A) 28.7 %; MCH 29.9 pg (27.0-32.0); MCHC 33.3 g/dL (32.0-37.0); MCV 89.6 fL (80.0-97.0); Mean Platelet Volume 11.3 fL (9.5-12.2); Monocytes # (A) 0.46 X 10*3/uL (0.20-1.00); Monocytes % (A) 5.7 %; NRBC Per 100 WBC 0 /100 WBCS (0.0-0.0); Neutrophils # (A) 5.13 X 10*3/uL (1.80-7.70); Platelet Count 133 X 10*3/uL (140-440); RBC 3.95 X 10*6/uL (4.10-5.20); RDW 12.9 % (11.5-14.5); WBC 8.14 X 10*3/uL (4.50-10.00)
[2022-03-02 10:26] LABS: ALT 15 U/L (8-44); AST 12 U/L (13-35); African American GFR (CKD) 131.7 (60.0-200.0); Albumin 3.9 g/dL (3.8-4.9); Albumin/Globulin Ratio 2.29 (1.60-3.17); Alkaline Phosphatase 110 U/L (41-126); Blood Urea Nitrogen 11.5 mg/dL (9.0-27.0); Calcium 8.8 mg/dL (8.7-10.3); Carbon Dioxide 24.2 mmol/L (20.0-27.5); Chloride 106 mmol/L (96-109); Globulin 1.7 g/dL (1.6-3.3); Glucose 100 mg/dL (70-110); Non-African American GFR(CKD) 113.6 (60.0-200.0); Potassium 4.3 mmol/L (3.5-5.5); Sodium 139 mmol/L (135-145); Total Bilirubin <0.15 mg/dL (0.30-1.20); Total Protein 5.6 g/dL (6.2-8.2)
--- NOTE | 2022-03-02 11:48 | CA ---
Lexiscan Nuclear Stress Test Report Name: Marleen Malcolm Exam Date: 03/02/2022 09:17 Exam Location: [place] [facility] Ht (in): 64 Wt (lb): 160 BSA: 1.78 Ordering Phys: [place] Olivares Referring Phys: MUSA Technologist: Arslan Abraham Age: 51 Gender: F : 1970 Procedure CPT: Indications: Reflex order-Stress test ICD-10 Codes: Patient History: Medications: SEE CHART Meds past 24 hrs: Pretest Chest Pain: STRESS TEST Lexiscan Protocol Exercise Duration (min:sec): 01:[address] Depressions (mm): Angina Score: Adan Score: Resting HR (bpm): 46 Peak HR (bpm): 93 Resting BP (mmHg): 152 / 69 Peak BP (mmHg): / 70 MPHR: 171 Target HR: 145 % MPHR: 54 METS: 1.0 Total Dose: Peak Dose: Atropine: Double Product: BP Response: Stress Termination: Completion of Infusion Stress Symptoms: DIFFICULTY IN BREATHING,CHEST PAIN,HEADACHE Stress Summary: ECG ANALYSIS Resting ECG: Normal sinus rhythm normal axis normal intervals Stress ECG: Negative stress test by EKG criteria CONCLUSIONS Negative stress test Cardiolite portion of the stress test will be reported separately Dr. Shan Sanches MD (Electronically Signed) Final Date: 02 March 2022 11:47
--- NOTE | 2022-03-02 11:58 | P.PN ---
Subjective This is a pleasant 51-year-old female past medical history significant for coronary artery disease status post prior stenting of the RCA and left cir cumflex in 2019, carotid stenosis, hypertension, dyslipidemia, chronic nicotine dependence, family history of coronary artery disease. She follows in the office with Dr. Charles. We have been asked to see in consultation for chest pain. Patient presents to the emergency department with complaints of chest discomfort. Acute coronary syndrome has been ruled out. Patient seen and examined at bedside, no acute distress. No further chest pain. Vitals signs are stable. Plan for Lexiscan stress test today. DIAGNOSTICS * Echocardiogram revealed EF 5560 percent, mild mitral regurgitation * Last Cardiac Catheterization 06/2020 revealed patent stent in the RCA, distal RCA has a lesion appeared to be in the range of 30%, normal left main coronary artery, patent stent in the left circumflex, distal to the stented segment of the left circumflex is a lesion of 40%, normal LAD. PHYSICAL EXAMINATION Vitals reviewed CONSTITUTIONAL: No apparent distress. HEENT: Head is normocephalic. Pupils are equal, round. Sclerae anicteric. Mucous membranes of the mouth are moist. No JVD. No carotid bruit. CHEST EXAMINATION: Lungs are clear to auscultation. No chest wall tenderness is noted on palpation or with deep breathing. HEART EXAMINATION: Regular rate and rhythm. S1, S2 heard. Short diastolic murmu r at the right sternal border, no gallops or rub. ABDOMEN: Soft, nontender. Positive bowel sounds. EXTREMITIES: 2+ peripheral pulses, no lower extremity edema and no calf tenderness. SKIN: Warm, dry NEUROLOGIC EXAMINATION: Patient is awake, alert and oriented x3. ASSESSMENT Chest pain, acute coronary syndrome has ruled out Coronary artery disease status post prior stenting of the RCA and left ci rcumflex in 2019 Carotid stenosis Hypertension Dyslipidemia Chronic nicotine dependence Family history of coronary artery disease PLAN An acute coronary event has been ruled out with no EKG evidence of ischemia and negative cardiac enzymes. Echocardiogram revealed EF 5560 percent, mild mitral regurgitation Perform Lexiscan stress test to assess for stress induced cardiac ischemia. If abnormal will consider coronary angiography. If stress test negative for reversible ischemia, no further inpatient workup from a cardiology perspective. Follow up with Dr. Charles outpatient Nurse practitioner note has been reviewed by physician. Signing provider agrees with the documented findings, assessment, and plan of care. Objective - Vital Signs Vital signs: Vital Signs Temp 97.8 F 03/02/22 07:00 Pulse 50 L 03/02/22 08:00 Resp 15 03/02/22 08:00 BP 120/49 03/02/22 07:00 Pulse Ox 97 03/02/22 07:00 FiO2 Intake & Output 03/01/22 03/02/22 03/02/22 18:59 06:59 18:59 Intake Total 118 Balance 118 Weight 72.57 kg Intake: Oral 118 Other: Voiding Method Toilet Toilet # Voids 3 3 - Labs CBC & Chem 7: 03/02/22 06:59 03/02/22 06:59 Labs: Abnormal Lab Results - Last 24 Hours (Table) 03/02/22 03/02/22 Range/Units 06:59 06:59 RBC 3.95 L (4.10-5.20) X 10*6/uL Hgb 11.8 L (12.0-15.0) g/dL Hct 35.4 L (37.2-46.3) % Plt Count 133 L (140-440) X 10*3/uL Anion Gap 8.80 L (10.00-18.00) mmol/L Creatinine 0.5 L (0.6-1.5) mg/dL BUN/Creatinine Ratio 23.00 H (12.00-20.00) Ratio Total Bilirubin <0.15 L (0.30-1.20) mg/dL AST 12 L (13-35) U/L Total Protein 5.6 L (6.2-8.2) g/dL
--- NOTE | 2022-03-02 13:12 | NM ---
EXAMINATION TYPE: NM stress lexiscan cardiolite DATE OF EXAM: 03/02/2022 COMPARISON: NONE HISTORY: History of tobacco use and family history of heart disease along with personal history of hy percholesteremia and prior heart attack with angioplasty presents with chest pain and palpitations TECHNIQUE: After the intravenous administration of 9.63 mCi Tc 99m Sestamibi - Cardiolite resting SP ECT images acquired 45 minutes post injection. The patient received 0.4mg Lexiscan, 24.8 mCi Tc 99m Sestamibi - Stress images obtained [address] injection FINDINGS: Review of stress and rest SPECT images demonstrates no distinct perfusion abnormality. Gated analysi s shows normal wall motion with an estimated left ventricular ejection fraction of 64 %. IMPRESSION: No scintigraphic evidence for reversible ischemia.
--- NOTE | 2022-03-02 20:03 | P.DS ---
Providers Date of admission: 02/28/22 23:37 Expected date of discharge: 03/02/22 Attending physician: Boris Adamson Consults: 03/01/22 00:16 Consult Physician Routine Consulting Provider: [facility] Consult Reason/Comments: Chest pain,h/o cardiac stents Do you want consulting provider notified?: Yes, Notify in am Primary care physician: Axel Abrams [facility] Course: Chief Complaint: Chest pain History of presenting complaint: This is a pleasant [address] Axel Abrams. pediatric assistant is Dr. Marks. 3 stents placed in 2017 and in 2013. Chronic stable medical conditions include hyperlipidemia, peptic ulcer disease, GERD, bowel spasms. July 2019 had a stent of the left circumflex ostium. October 2019, RCA was angioplastied and stented. has continued to smoke. About 9 PM last night patient started feeling a heaviness in the chest. Started coming and going. Sharp and dull both. It went to his neck and arm. Short of breath. Last for several hours. Patient recently lost his brother. He has been quite anxious and stressed. The day before she had some chest pain also passed out. Admitted unstable angina. Troponin was negative. 03/02/2022: Patient today underwent a Lexiscan stress test. Came back negative for ischemia. Cleared by cardiology for discharge. Patient advised against smoking. We'll follow-up with the pediatric assistant. 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 Denies use of any recreational drugs or alcohol. Does smoke half a pack a day for over 35 years Family history: Reviewed, noncontributory to presentation Physical examination: VITAL SIGNS: 97.8, 50, 15, 120/49, 97% room air GENERAL: laying in bed, bit anxious EYES: Pupils equal. Conjunctiva normal. HEENT: External appearance of nose and ears normal, oral cavity grossly normal. NECK: JVD not raised; masses not palpable. HEART: First and second heart sounds are normal; no edema. LUNGS: Respiratory rate normal; decreased breath sounds. ABDOMEN: Soft, nontender, liver spleen not palpable, no masses palpable. PSYCH: Alert and oriented x3; mood and affect anxiousl. Investigations: Nuclear stress test: Negative for ischemia WBC 10.7 hemoglobin 13.8 platelets 167 progression 3.5 creatinine 0.56 Troponin I 3 negative EKG tracing personally reviewed by me-normal sinus rhythm. Chest x-ray film personally reviewed by me-hyperinflation Assessment and plan: -Anterior chest wall pain, possibly muscular skeletal Negative nuclear stress test -CAD with prior stents. Aspirin, Lipitor, Plavix, Toprol-XL -Chronic nicotine dependence patient cigarette smoker Nicotine patch -COPD in a current smoker Albuterol when necessary -Essential hypertension Toprol-XL, Zestril -Hyperlipidemia Lipitor -Peptic ulcer disease Pepcid -GERD Pepcid -Chronic bowel spasms bentyl when necessary Disposition: Home Plan - Discharge Summary Discharge Rx Participant: Yes New Discharge Prescriptions: New Aspirin 81 mg PO DAILY tab lisinopriL [Zestril] 5 mg PO DAILY #30 tab Dicyclomine [Bentyl] 10 mg PO AC-TID PRN #30 cap PRN Reason: Spasms Nicotine 14Mg/24Hr Patch [Habitrol] 1 patch TRANSDERM DAILY #14 patch Continue Pantoprazole Sodium [Protonix] 40 mg PO BID Clopidogrel [Plavix] 75 mg PO DAILY Buta/APAP/Caf/Cod [id number] [Fioricet w/Cod 85-053-04-30MG] 1 cap PO Q4H PRN PRN Reason: Migraine Headache Atorvastatin [Lipitor] 80 mg PO HS #30 tab Dextroamphetamine/Amphetamine [Adderall Xr 25 mg Capsule] 25 mg PO DAILY Metoprolol Succinate [Metoprolol Succinate ER] 25 mg PO DAILY Ezetimibe [Zetia] 10 mg PO DAILY Metoclopramide [Reglan] 5 mg PO AC-BID Discharge Medication List Buta/APAP/Caf/Cod [id number] [Fioricet w/Cod 91-240-27-30MG] 1 cap PO Q4H PRN 07/19/19 [History] Clopidogrel [Plavix] 75 mg PO DAILY 07/19/19 [History] Pantoprazole Sodium [Protonix] 40 mg PO BID 07/19/19 [History] Atorvastatin [Lipitor] 80 mg PO HS #30 tab 07/21/19 [Rx] Dextroamphetamine/Amphetamine [Adderall Xr 25 mg Capsule] 25 mg PO DAILY 03/01/22 [History] Ezetimibe [Zetia] 10 mg PO DAILY 03/01/22 [History] Metoclopramide [Reglan] 5 mg PO AC-BID 03/01/22 [History] Metoprolol Succinate [Metoprolol Succinate ER] 25 mg PO DAILY 03/01/22 [History] Aspirin 81 mg PO DAILY tab 03/02/22 [Rx] Dicyclomine [Bentyl] 10 mg PO AC-TID PRN #30 cap 03/02/22 [Rx] Nicotine 14Mg/24Hr Patch [Habitrol] 1 patch TRANSDERM DAILY #14 patch 03/02/22 [Rx] lisinopriL [Zestril] 5 mg PO DAILY #30 tab 03/02/22 [Rx] Follow up Appointment(s)/Referral(s): Axel Abrams MD [Primary Care Provider] - 1-2 days (please call for a follow up appointment thank you ) Sheng Charles MD [STAFF PHYSICIAN] - 03/12/22 1:15 pm Patient Instructions/Handouts: Regadenoson (By injection), Chest Pain (DC), Cardiac Stress Test (GEN), Nuclear Stress Test (GEN)
== END 2022-03-02 14:05 ==
LOC: EC 22:17 → 6NMEDSUR 23:37
PROVIDERS: ADMIT Hospitalist; ATTEND Hospitalist
DX: R07.89 Other chest pain (principal); K27.9 Peptic ulcer, site unspecified, unspecified as acute or chronic, without hemorrhage or perforation; K21.9 Gastro-esophageal reflux disease without esophagitis; K58.9 Irritable bowel syndrome, unspecified; I25.2 Old myocardial infarction; I25.110 Atherosclerotic heart disease of native coronary artery with unstable angina pectoris; F17.210 Nicotine dependence, cigarettes, uncomplicated; J44.9 Chronic obstructive pulmonary disease, unspecified; E78.00 Pure hypercholesterolemia, unspecified; I08.2 Rheumatic disorders of both aortic and tricuspid valves; I10 Essential (primary) hypertension; I37.1 Nonrheumatic pulmonary valve insufficiency; Z79.82 Long term (current) use of aspirin; Z79.02 Long term (current) use of antithrombotics/antiplatelets; Z79.899 Other long term (current) drug therapy; Z82.49 Family history of ischemic heart disease and other diseases of the circulatory system; Z88.6 Allergy status to analgesic agent; Z95.5 Presence of coronary angioplasty implant and graft
CPT/HCPCS: 96376; 96361 ×2; 96374; 99285; 36415; 93017; 93306; 80053 ×2; 83690; 83735; 84484 ×2; 85025 ×2; 85610; 85730; 71046; 78452; G0378 ×2; A9500; J2270 ×2; J2785

== ENCOUNTER → 2023-06-06 | Outpatient (CLI) | payer OTHER ==
[2023-06-06 10:16] VITALS: BP 132/76; PULSE 69; RESP 15; TEMP 98.2
--- NOTE | 2023-06-06 13:59 | P.PAINPG ---
Objective - Vital Signs Vital signs: Intake & Output 06/05/23 06/06/23 06/06/23 18:59 06:59 18:59 Weight 64.41 kg PQRS Measure Charge Sheet Comment: HISTORY OF PRESENT ILLNESS: A 52 yr old female as a referral from Dr Charles presents today w severe and chronic mid back pain x 1 yr secondary to DDD, spondylosis and facet arthropathy without myelopathy for evaluation. Pt states pain level is provoked at 10 /10 in intensity, constant, localized in the mid spine, predominantly axial, stabbing in character w occasional shooting pain towards the L flank towards the underarm. Pain is provoked by twisting, standing/ laying in certain positions. Pain is alleviated by PT yrs ago, chiropractic treatments x 1 mo in Nov 2022 which provoked pain, medications (Tyl, ASA), repositioning and rest. Oswestry axial pain score at 27. PMH: OA, HTN, Hyperlipidemia, CAD, CHF, [place] (2018) PSH: Valve Regurgitation, Heart Cath, Heart Catherterization w Stent x6, Hysterectomy, Appendectomy SH: Daily tobacco use, No ETOH abuse, No illicit drug use FH: [place]- [place] All: See list Meds: See list REVIEW OF ORGAN SYSTEMS: CONSTITUTIONAL: No fevers or chills. No recent weight loss. NEUROLOGICAL: + numbness and tingling along the distal extremities. No seizure disorders or headaches. MUSCULOSKELETAL: + pain PSYCHIATRIC: Denies current depression or suicidal thoughts. Physical Examinations : Constitutional : Cooperative , not in acute distress . Neurologic : Cranial nerve II to XII intact. No focal neurological deficits. Psychiatric : alert & oriented x 3. Matching mood & appropriate affect. Judgment & insight intact. Musculoskeletal : Cervical Spine Motor strength in the deltoid and biceps: Normal right side. Normal Left side Motor strength biceps and the wrist extensors: Normal right side . Normal left side Motor strength in the triceps muscle: Normal right side. Normal left side Deep tendon reflexes: Normal at the biceps. Normal at Brachioradialis. Normal at triceps Vertebral body tenderness to deep palpation over Cervical facet loading test: positive bilaterally Spurling test: positive bilaterally Neck distraction test: positive bilaterally Schuyler sign: positive bilaterally Thoracic spine Vertebral body TTP over T11, T12 Lumbar spine Motor strength lower extremities ,thigh and legs 5/5 Right side , 5/5 Left side Deep tendon reflexes : Normal Knee Jerk. Normal Ankle Jerk Vertebral body tenderness over Al Test positive Lumbar facet Loading Test: positive Right / positive Left Range of motion of the lumbar spine Flexion 30 degrees, extension 10 degrees Straight Leg Raise test: Left/ Right positive at degrees Antonio test: positive right / positive left. Severe tenderness over the Sacroiliac joint on the Right / Left sides Gaenslen test: positive bilaterally Seated flexion test: positive bilaterally. Sacral spine : Severe tenderness over the Sacroiliac joint: right side / left side Range of motion: Flexion of the lumbar spine <60 degrees Range of motion: Extension of the lumbar spine <20 degrees Gaenslen's Test positive Antonio test: positive right side / left side Thigh Thrust Test Sacral Thrust Test Imaging: CT noncontrast of the thoracic/lumbar spine from 03/28/23 reviewed Assessment/ Plan : Thoracic DDD Recommendation of L paramedian WALESKA T11-T12 #1. May need a series of injections for optimal pain relief. Risks, benefits of procedure discussed and patient verbalized understanding. Admits to anti- coagulant use or medical history of diabetes. Protocol for discontinuation/ continuation of medications lauro procedure discussed. Minimal anesthesia provided, if clinically indicated, consisting of Versed and Fentanyl. All questions answered. I have spent greater than 30 minutes on patient care today. Dr Toledo was available by phone for the evaluation of this patient. The time was used to review the medical records including relevant urine studies and Prescription history (MAPs), review of the available imaging, evaluation and examination of the patient, coordination of care with the medical staff and if applicable referring physicians, as well as creation of the medical record PQRS Narrative: Smoking Status Current every day smoker Home Medications: Ambulatory Orders Buta/APAP/Caf/Cod 84-126-33-30 [Fioricet w/Cod 88-285-63-30MG] 1 cap PO Q4H PRN 07/19/19 Clopidogrel [Plavix] 75 mg PO DAILY 07/19/19 Pantoprazole Sodium [Protonix] 40 mg PO BID 07/19/19 Atorvastatin [Lipitor] 80 mg PO HS #30 tab 07/21/19 Dextroamphetamine/Amphetamine [Adderall Xr 25 mg Capsule] 25 mg PO DAILY 03/01/22 Ezetimibe [Zetia] 10 mg PO DAILY 03/01/22 Metoclopramide [Reglan] 5 mg PO AC-BID 03/01/22 Metoprolol Succinate [Metoprolol Succinate ER] 25 mg PO DAILY 03/01/22 Aspirin 81 mg PO DAILY tab 03/02/22 Dicyclomine [Bentyl] 10 mg PO AC-TID PRN #30 cap 03/02/22 Nicotine 14Mg/24Hr Patch [Habitrol] 1 patch TRANSDERM DAILY #14 patch 03/02/22 lisinopriL [Zestril] 5 mg PO DAILY #30 tab 03/02/22 Controlled Substance Measures - Controlled Substance Measures Is patient prescribed a controlled substance at discharge?: No
== END ==
LOC: PNWHC3 09:16
PROVIDERS: ATTEND Specialist
DX: M51.34 Other intervertebral disc degeneration, thoracic region (principal); M54.50 Low back pain, unspecified; M19.90 Unspecified osteoarthritis, unspecified site; E78.5 Hyperlipidemia, unspecified; I25.10 Atherosclerotic heart disease of native coronary artery without angina pectoris; I11.0 Hypertensive heart disease with heart failure; I50.9 Heart failure, unspecified; I25.2 Old myocardial infarction; F17.200 Nicotine dependence, unspecified, uncomplicated; Z79.899 Other long term (current) drug therapy; Z79.82 Long term (current) use of aspirin; Z88.5 Allergy status to narcotic agent; Z88.1 Allergy status to other antibiotic agents
CPT/HCPCS: 99211

== ENCOUNTER → 2023-06-10 | Outpatient (CLI) | payer OTHER ==
[2023-06-10 11:03] LABS: HCT 40.8 % (37.2-46.3); HGB 13.8 g/dL (12.0-15.0); MCH 30.5 pg (27.0-32.0); MCHC 33.8 g/dL (32.0-37.0); MCV 90.3 FL (80.0-97.0); Mean Platelet Volume 10.9 FL (9.5-12.2); NRBC Per 100 WBC 0 X 10*3/uL (0.00-0.01); Platelet Count 165 X 10*3/uL (140-440); RBC 4.52 X 10*6/uL (4.10-5.20); RDW 12.2 % (11.5-14.5); WBC 10.19 X 10*3/uL (4.50-10.00)
[2023-06-10 11:22] LABS: ALT 15 U/L (8-44); AST 12 U/L (13-35); Blood Urea Nitrogen 19.4 mg/dL (9.0-27.0); Carbon Dioxide 22.1 mmol/L (21.6-31.8); Chloride 109 mmol/L (96-109); Chol/HDL Ratio 3.67 Ratio; LDL Cholesterol,Calculated 75.6 mg/dL (0.0-131.0); Potassium 4.1 mmol/L (3.5-5.5); Sodium 143 mmol/L (135-145)
== END | disposition home or self-care (01) ==
LOC: LABPAT 07:01
PROVIDERS: ATTEND Internal Medicine Interventional Cardiology
DX: Z01.812 Encounter for preprocedural laboratory examination (principal); R07.9 Chest pain, unspecified
CPT/HCPCS: 36415; 80051; 80061; 82565; 84450; 84460; 84520; 85027

== ENCOUNTER 2023-07-15 14:48 | Emergency (ER) | payer OTHER ==
[2023-07-15 14:55] VITALS: BP 147/80; PULSE 65; RESP 18; TEMP 98.1
--- NOTE | 2023-07-15 15:49 | US ---
EXAMINATION TYPE: US venous doppler duplex UE RT DATE OF EXAM: 07/15/2023 COMPARISON: NONE CLINICAL INDICATION: Female, 52 years old with history of pain; Pt states right arm pain s/p right ra dial heart cath SIDE PERFORMED: Right Right Arm: No deep venous thrombus. IMPRESSION: No evidence of deep venous thrombosis.
--- NOTE | 2023-07-15 15:49 | ED ---
General Adult HPI - General Chief complaint: Recheck/Abnormal Lab/Rx Stated complaint: Pain in Arm-post surgery Time Seen by Provider: 07/15/23 14:58 Source: patient Mode of arrival: ambulatory Limitations: no limitations - History of Present Illness Initial comments: This patient is a 52-year-old woman who presents for evaluation of right upper extremity pain and swelling. The patient states that this had developed June 27 when she had heart catheterization performed. She states that the pain has been continuing since that time. She saw her senior commissions analyst in the clinic today, Dr. Marks who sent her over here to have further evaluation related to it. The patient is denying any weakness or paresthesias to the right arm. The pain is mainly located just distal to the right elbow and does radiate to the upper portion of the right arm. She has not noted fever or chills. No rash. Onset/Timin -: week(s) Location: right, upper extremity Quality: dull Consistency: constant Improves with: none Worsens with: other (Palpation) Associated Symptoms: denies other symptoms Treatments Prior to Arrival: none - Related Data Home Medications Medication Instructions Recorded Confirmed Buta/APAP/Caf/Cod 80-052-95-30 1 cap PO Q4H PRN 07/19/19 06/27/23 [Fioricet w/Cod 72-403-84-30MG] Clopidogrel [Plavix] 75 mg PO DAILY 07/19/19 06/27/23 Pantoprazole Sodium [Protonix] 40 mg PO BID 07/19/19 06/27/23 Dextroamphetamine/Amphetamine 25 mg PO DAILY 03/01/22 06/27/23 [Adderall Xr 25 mg Capsule] Ezetimibe [Zetia] 10 mg PO DAILY 03/01/22 06/27/23 Metoclopramide [Reglan] 5 mg PO AC-BID 03/01/22 06/27/23 Dicyclomine [Bentyl] 20 mg PO QID 06/23/23 06/27/23 Ibuprofen [Motrin Ib] 600 mg PO DIRECTED PRN 06/23/23 06/27/23 Isosorbide Mononitrate [Isosorbide 15 mg PO DAILY 06/23/23 06/27/23 Mononitrate ER] Unk Nitro 1 tab PO DIRECTED PRN 06/23/23 06/23/23 Unk Vitamin A 1 tab PO DAILY 06/23/23 06/27/23 Unk Vitamin C 1 tab PO DAILY 06/23/23 06/27/23 Unk Vitamin D3 1 tab PO BID 06/23/23 06/27/23 Unk Zinc 1 tab PO BID 06/23/23 06/27/23 Vitamin B12 1 tab PO DAILY 06/23/23 06/27/23 Previous Rx's Medication Instructions Recorded Atorvastatin [Lipitor] 80 mg PO HS #30 tab 07/21/19 Aspirin 81 mg PO DAILY tab 03/02/22 Nicotine 14Mg/24Hr Patch [Habitrol] 1 patch TRANSDERM DAILY #14 patch 03/02/22 Metoprolol Succinate [Metoprolol 12.5 mg PO DAILY #0 06/28/23 Succinate ER] Nitroglycerin Sl Tabs [Nitrostat] 0.4 mg SUBLINGUAL Q5M PRN #25 tab 06/28/23 Allergies Allergy/AdvReac Type Severity Reaction Status Date / Time hydromorphone [From Dilaudid] Allergy Mild Nausea Verified 07/15/23 14:53 hydrocodone [From Vicodin] Allergy Rash/Hives Verified 07/15/23 14:53 Review of Systems ROS Statement: Those systems with pertinent positive or pertinent negative responses have been documented in the HPI. ROS Other: All systems not noted in ROS Statement are negative. 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 pt is currently wearing a heart monitor. Last Myocardial Infarction Date:: 2017 History of Any Multi-Drug Resistant Organisms: None Reported Past Surgical History: Appendectomy, Section, Heart Catheterization, Heart Catheterization With Stent, Hysterectomy Additional Past Surgical History / Comment(s): 6 stents, colonoscopy Past Anesthesia/Blood Transfusion Reactions: No Reported Reaction Date of Last Stent Placement:: unknown Past Psychological History: ADD/ADHD Smoking Status: Current every day smoker Past Alcohol Use History: Occasional Past Drug Use History: None Reported - Past Family History Mother Family Medical History: Hyperlipidemia, Myocardial Infarction (CO) Additional Family Medical History / Comment(s): CABG. mothers side of family lots of heart issues. Father Additional Family Medical History / Comment(s): at 30 General Exam Limitations: no limitations General appearance: alert, in no apparent distress Head exam: Present: atraumatic, normocephalic Eye exam: Present: normal appearance. Absent: scleral icterus, conjunctival injection Respiratory exam: Present: normal lung sounds bilaterally. Absent: respiratory distress, wheezes, rales, rhonchi, stridor Cardiovascular Exam: Present: regular rate, normal rhythm, normal heart sounds. Absent: systolic murmur, diastolic murmur, rubs, gallop Extremities exam: Present: full ROM, tenderness Neurological exam: Present: alert. Absent: motor sensory deficit (Throughout the right upper extremity) Skin exam: Present: warm, dry, intact, normal color. Absent: rash Course Vital Signs 07/15/23 14:51 Temperature 98.1 F Pulse Rate 65 Respiratory 18 Rate Blood Pressure 147/80 O2 Sat by Pulse 98 Oximetry Medical Decision Making - Medical Decision Making This patient is a 52-year-old woman presenting with upper extremity pain following heart catheterization. The patient did have ultrasound evaluation and there is no evidence of DVT. The facilities operations technician stated that she also checked the artery at the insertion site and no evidence of aneurysm. Discussed findings with patient who will follow with her physician. She did have some relief of symptoms. Discussed return parameters as well. The patient had duplex Doppler of the upper extremity which I interpreted as not showing evidence of DVT Was pt. sent in by a medical professional or institution (, PA, CHILD DAY CARE TEACHER, urgent care, hospital, or custodial...) When possible be specific @ -Yes the patient is sent to have further evaluation by her senior commissions analyst Did you speak to anyone other than the patient for history (EMS, parent, family, police, friend...)? What history was obtained from this source @ -[I did discuss case with cardiology Did you review nursing and triage notes (agree or disagree)? Why? @ -[I reviewed and agree with nursing and triage notes] Were old charts reviewed (outside hosp., previous admission, EMS record, old EKG, old radiological studies, urgent care reports/EKG's, custodial records)? Report findings @ -[Yes old charts were reviewed] Differential Diagnosis (chest pain, altered mental status, abdominal pain women, abdominal pain men, vaginal bleeding, weakness, fever, dyspnea, syncope, headache, dizziness, GI bleed, back pain, seizure, CVA, palpatations, mental health, musculoskeletal)? @ -Differential Musculoskeletal Muscular strain, contusion, ligament sprain, fracture, arthritis, septic arthritis, bursitis, cellulitis, muscle spasm, nerve compression, DVT, arterial occlusion, herpes zoster, electrolyte abnormality, tumor.... This is not meant to be in all inclusive list EKG interpreted by me (3pts min.). @ -[As above] X-rays interpreted by me (1pt min.). @ -[None done] CT interpreted by me (1pt min.). @ -[None done] U/S interpreted by me (1pt. min.). @ -[I interpreted as above] What testing was considered but not performed or refused? (CT, X-rays, U/S, labs)? Why? @ -[None] What meds were considered but not given or refused? Why? @ -[None] Did you discuss the management of the patient with other professionals (professionals i.e. , PA, CHILD DAY CARE TEACHER, lab, RT, psych nurse, social media editor, city comptroller, teacher, disbursing officer, therapeutic case manager)? Give summary @ -[I discussed case with patient's senior commissions analyst, treatment recommendations incorporated Was smoking cessation discussed for >3mins.? @ -[No] Was critical care preformed (if so, how long)? @ -[No] Were there social determinants of health that impacted care today? How? (Homelessness, low income, unemployed, alcoholism, drug addiction, transportation, low edu. Level, literacy, decrease access to med. care, skilled nursing, rehab)? @ -[No] Was there de-escalation of care discussed even if they declined (Discuss DNR or withdrawal of care, Hospice)? DNR status @ -[No] What co-morbidities impacted this encounter? (DM, HTN, Smoking, COPD, CAD, Cancer, CVA, ARF, Chemo, Hep., AIDS, mental health diagnosis, sleep apnea, morbid obesity)? @ -[Recent heart catheterization Was patient admitted / discharged? Hospital course, mention meds given and route, prescriptions, significant lab abnormalities, going to OR and other pertinent info. @ -[As above Undiagnosed new problem with uncertain prognosis? @ -[No] Drug Therapy requiring intensive monitoring for toxicity (Heparin, Nitro, Insulin, Cardizem)? @ -[No] Were any procedures done? @ -[No] Diagnosis/symptom? @ -[Right upper extremity pain Acute, or Chronic, or Acute on Chronic? @ -[Acute Uncomplicated (without systemic symptoms) or Complicated (systemic symptoms)? @ -[Uncomplicated Side effects of treatment? @ -[No] Exacerbation, Progression, or Severe Exacerbation? @ -[No] Poses a threat to life or bodily function? How? (Chest pain, [place], CO, pneumonia, PE, COPD, DKA, ARF, appy, cholecystitis, CVA, Diverticulitis, Homicidal, Suicidal, threat to staff... and all critical care pts) @ -[No] Disposition Clinical Impression: Right arm pain Disposition: HOME SELF-CARE Condition: Good Instructions (If sedation given, give patient instructions): Arm Pain (ED) Is patient prescribed a controlled substance at d/c from ED?: No Referrals: Axel Abrams MD [Primary Care Provider] - 1-2 days Sheng Charles MD [STAFF PHYSICIAN] - 1-2 days
== END 2023-07-15 16:30 | disposition home or self-care (01) ==
LOC: EC 14:48
DX: M25.521 Pain in right elbow (principal); F17.200 Nicotine dependence, unspecified, uncomplicated; Z88.5 Allergy status to narcotic agent
CPT/HCPCS: 99284

== ENCOUNTER 2023-08-04 08:43 | Day surgery (SDC) | payer OTHER ==
[~2023-08-04 08:43] MED LIST: LACTATED RINGERS 1,000 ML IV SCH
[2023-08-04 10:19] VITALS: TEMP 97.4
[2023-08-04] MEDS ORDERED: ROPIVACAINE 5MG/ML 20ML VIAL ONE (10:28)
[2023-08-04] MEDS ORDERED: methylPREDNISolone ACETATE 80 MG/ML 1 ML VIAL ONE (10:28)
--- NOTE | 2023-08-04 10:57 | P.PCN ---
Description of Procedure: Preprocedure diagnosis. Myofascial pain. Myofascial trigger point. Postprocedure diagnosis. As above. Procedure done. Myofascial trigger point injection with local anesthetics and steroid at 4 points. Anesthesia. Ethyl chloride spray. In the OR continuous pulse ox, EKG, blood pressure, and verbal communication was maintained with the patient. Blood loss. None. Indication. Discussed with the patient procedure, alternatives and possible complications which may include infection, bleeding, nerve damage, aggravation of pain. As patient is not allowed by the assistant professor of sociology to stop Plavix, she is at higher risk of bleeding, nerve damage, spinal cord damage, paralysis. And she is willing to take this higher risk. Patient understands and all questions were answered. Procedure note. After getting consent patient in the procedure area. Most tender points were identified and marked. A 25-gauge needle attached to syringe was introduced at the trigger points and after negative aspiration 5 mL solution are injected at each trigger point. I injected 4 trigger points in left paraspinal thoracic muscles, Total solution consists of 20 ml 0.5%Ropivacaine mixed with 80 mg Depomedrol. Disposition. Patient tolerated the procedure well. No complication. Discharged home in stable condition.
[2023-08-04 11:00] VITALS: BP 131/79; PULSE 53; RESP 14
== END 2023-08-04 11:09 | disposition home or self-care (01) ==
LOC: ORPAIN 08:43
PROVIDERS: ATTEND Pain Medicine Interventional Pain Medicine
DX: M79.18 Myalgia, other site (principal); Z79.02 Long term (current) use of antithrombotics/antiplatelets; Z79.82 Long term (current) use of aspirin; Z88.1 Allergy status to other antibiotic agents; Z88.8 Allergy status to other drugs, medicaments and biological substances
CPT/HCPCS: 20553; J1040; J2795

== ENCOUNTER → 2023-08-25 | Outpatient (CLI) | payer OTHER ==
--- NOTE | 2023-08-25 14:55 | P.PAINPG ---
PQRS Measure Charge Sheet Comment: HISTORY OF PRESENT ILLNESS: A 52 yr old female presents today w severe and chronic mid back pain x 1 yr secondary to DDD, spondylosis and facet arthropathy without myelopathy for evaluation. Pt states pain level is provoked at 10 /10 in intensity, constant, localized in the mid spine, predominantly axial, stabbing in character w occasional shooting pain towards the L flank towards the underarm. Pain is provoked by twisting, standing/ laying in certain positions. Pain is alleviated by PT yrs ago, chiropractic treatments x 1 mo in Nov 2022 which provoked pain, medications, repositioning and rest. Oswestry axial pain score at 27. Interventionalprocedures include Lumbar TPIs (Aug 2023) Medications incclude Tyl, ASA REVIEW OF ORGAN SYSTEMS: CONSTITUTIONAL: No fevers or chills. No recent weight loss. NEUROLOGICAL: + numbness and tingling along the distal extremities. No seizure disorders or headaches. MUSCULOSKELETAL: + pain PSYCHIATRIC: Denies current depression or suicidal thoughts. Physical Examinations : Constitutional : Cooperative , not in acute distress . Neurologic : Cranial nerve II to XII intact. No focal neurological deficits. Psychiatric : alert & oriented x 3. Matching mood & appropriate affect. Judgment & insight intact. Musculoskeletal : Cervical Spine Motor strength in the deltoid and bicep s: Normal right side. Normal Left side Motor strength biceps and the wrist extensors: Normal right side . Normal left side Motor strength in the triceps muscle: Normal right side. Normal left side Deep tendon reflexes: Normal at the biceps. Normal at Brachioradialis. Normal at triceps Vertebral body tenderness to deep palpation over Cervical facet loading test: positive bilaterally Spurling test: positive bilaterally Neck distraction test: positive bilaterally Schuyler sign: positive bilaterally Thoracic spine Vertebral body TTP over T11, T12 Lumbar spine Motor strength lower extremities ,thigh and legs 5/5 Right side , 5/5 Left side Deep tendon reflexes : Normal Knee Jerk. Normal Ankle Jerk Vertebral body tenderness over Al Test positive Lumbar facet Loading Test: positive Right / positive Left Range of motion of the lumbar spine Flexion 30 degrees, extension 10 degrees Straight Leg Raise test: Left/ Right positive at degrees Antonio test: positive right / positive left. Severe tenderness over the Sacroiliac joint on the Right / Left sides Gaenslen test: positive bilaterally Seated flexion test: positive bilaterally. Sacral spine : Severe tenderness over the Sacroiliac joint: right side / left side Range of motion: Flexion of the lumbar spine <60 degrees Range of motion: Extension of the lumbar spine <20 degrees Gaenslen's Test positive Antonio test: positive right side / left side Thigh Thrust Test Sacral Thrust Test Imaging: CT noncontrast of the thoracic/lumbar spine from 03/28/23 reviewed Assessment/ Plan : Thoracic DDD Recommendation of medication management until pt has clearance to adequately stop Plavix for WALESKA. Morphine Sulfate 15mg #60 w 1 RF. Use, side effects, adverse reactions, safe storage discussed. Opiate/ narcotic agreement signed 08/25/23. All questions answered. I have spent greater than 30 minutes on patient care today. Dr Toledo was available by phone for the evaluation of this patient. The time was used to review the medical records including relevant urine studies and Prescription history (MAPs), review of the available imaging, evaluation and examination of the patient, coordination of care with the medical staff and if applicable referring physicians, as well as creation of the medical record PQRS Narrative: Smoking Status Current every day smoker Hx Alcohol Use (MH) No Home Medications: Ambulatory Orders [place]/APAP/Caf/Cod [id number] [Fioricet w/Cod [id number]] 1 cap PO Q4H PRN 07/19/19 Clopidogrel [Plavix] 75 mg PO DAILY 07/19/19 Pantoprazole Sodium [Protonix] 40 mg PO BID 07/19/19 Atorvastatin [Lipitor] 80 mg PO HS #30 tab 07/21/19 Dextroamphetamine/Amphetamine [Adderall Xr 25 mg Capsule] 25 mg PO DAILY 03/01/22 Ezetimibe [Zetia] 10 mg PO DAILY 03/01/22 Metoclopramide [Reglan] 5 mg PO AC-BID 03/01/22 Aspirin 81 mg PO DAILY tab 03/02/22 Nicotine 14Mg/24Hr Patch [Habitrol] 1 patch TRANSDERM DAILY #14 patch 03/02/22 Dicyclomine [Bentyl] 20 mg PO QID 06/23/23 Ibuprofen [Motrin Ib] 600 mg PO DIRECTED PRN 06/23/23 Isosorbide Mononitrate [Isosorbide Mononitrate ER] 15 mg PO DAILY 06/23/23 Unk Vitamin A 1 tab PO DAILY 06/23/23 Unk Vitamin C 1 tab PO DAILY 06/23/23 Unk Vitamin D3 1 tab PO BID 06/23/23 Unk Zinc 1 tab PO BID 06/23/23 Vitamin B12 1 tab PO DAILY 06/23/23 Metoprolol Succinate [Metoprolol Succinate ER] 12.5 mg PO DAILY #0 06/28/23 Nitroglycerin Sl Tabs [Nitrostat] 0.4 mg SUBLINGUAL Q5M PRN #25 tab 06/28/23 Morphine Sulfate ER [Ms Contin] 15 mg PO BID 30 Days #60 tab 08/25/23 Morphine Sulfate ER [Ms Contin] 15 mg PO Q12HR 30 Days #60 tab 08/25/23 Controlled Substance Measures - Controlled Substance Measures Is patient prescribed a controlled substance at discharge?: Yes When asked, does pt state using other controlled substances?: Yes If prescribed controlled substance>3 days was MAPS reviewed?: Yes If Rx opioid, was Start Talking consent form obtained?: Yes Was information provided regarding opioid addiction?: Yes
[2023-08-25 15:29] VITALS: BP 139/72; PULSE 89; RESP 15; TEMP 97.9
== END ==
LOC: PNWHC3 14:03
PROVIDERS: ATTEND Specialist
DX: M51.34 Other intervertebral disc degeneration, thoracic region (principal); G89.29 Other chronic pain; M47.814 Spondylosis without myelopathy or radiculopathy, thoracic region; F17.200 Nicotine dependence, unspecified, uncomplicated; Z88.5 Allergy status to narcotic agent
CPT/HCPCS: 99211

== ENCOUNTER → 2023-09-29 | Outpatient (CLI) | payer OTHER ==
[2023-09-29 11:28] VITALS: BP 135/76; PULSE 75; RESP 16
--- NOTE | 2023-09-29 14:50 | P.PAINPG ---
PQRS Measure Charge Sheet Comment: HISTORY OF PRESENT ILLNESS: A 52 yr old female presents today w severe and chronic mid back pain x 1 yr secondary to DDD, spondylosis and facet arthropathy without myelopathy for evaluation s/p BL Lumbar TPIs. Pt states pain level is provoked at 10 /10 in intensity, constant, localized in the mid spine, predominantly axial, stabbing in character w occasional shooting pain towards the L flank towards the underarm. Pain is provoked by twisting, standing/ laying in certain positions. Pain is alleviated by PT yrs ago, chiropractic treatments x 1 mo in Nov 2022 which provoked pain, medications, repositioning and rest. Oswestry axial pain score at 27. [facility] pharmacy will not fill Cranston 7.5/325mg as pt is currently receiving Tyl #3 #120 and Fioricet #88. Discussed drug take back box if she wants Cran[place] filled, but pt walked out of clinic stating "I'll just go somewhere else where someone will give me what helps." Interventional procedures include Lumbar TPIs (Aug 2023) Medications include Tyl, ASA REVIEW OF ORGAN SYSTEMS: CONSTITUTIONAL: No fevers or chills. No recent weight loss. NEUROLOGICAL: + numbness and tingling along the distal extremities. No seizure disorders or headaches. MUSCULOSKELETAL: + pain PSYCHIATRIC: Denies current depression or suicidal thoughts. Physical Examinations : Constitutional : Cooperative , not in acute distress . Neurologic : Cranial nerve II to XII intact. No focal neurological deficits. Psychiatric : alert & oriented x 3. Matching mood & appropriate affect. Judgment & insight intact. Musculoskeletal : Cervical Spine Motor strength in the deltoid and biceps: Normal right side. Normal Left side Motor strength biceps and the wrist extensors: Normal right side . Normal left side Motor strength in the triceps muscle: Normal right side. Normal left side Deep tendon reflexes: Normal at the biceps. Normal at Brachioradialis. Normal at triceps Vertebral body tenderness to deep palpation over Cervical facet loading test: positive bilaterally Spurling test: positive bilaterally Neck distraction test: positive bilaterally Schuyler sign: positive bilaterally Thoracic spine Vertebral body TTP over T11, T12 Lumbar spine Motor strength lower extremities ,thigh and legs 5/5 Right side , 5/5 Left side Deep tendon reflexes : Normal Knee Jerk. Normal Ankle Jerk Vertebral body tenderness over Al Test positive Lumbar facet Loading Test: positive Right / positive Left Range of motion of the lumbar spine Flexion 30 degrees, extension 10 degrees Straight Leg Raise test: Left/ Right positive at degrees Antonio test: positive right / positive left. Severe tenderness over the Sacroiliac joint on the Right / Left sides Gaenslen test: positive bilaterally Seated flexion test: positive bilaterally. Sacral spine : Severe tenderness over the Sacroiliac joint: right side / left side Range of motion: Flexion of the lumbar spine <60 degrees Range of motion: Extension of the lumbar spine <20 degrees Gaenslen's Test positive Antonio test: positive right side / left side Thigh Thrust Test Sacral Thrust Test Imaging: CT noncontrast of the thoracic/lumbar spine from 03/28/23 reviewed Assessment/ Plan : Thoracic DDD Pt walked out of clinic. All questions answered. I have spent greater than 30 minutes on patient care today. Dr Toledo was available by phone for the evaluation of this patient. The time was used to review the medical records including relevant urine studies and Prescription his tory (MAPs), review of the available imaging, evaluation and examination of the patient, coordination of care with the medical staff and if applicable referring physicians, as well as creation of the medical record PQRS Narrative: Smoking Status Current every day smoker Hx Alcohol Use (MH) No Home Medications: Ambulatory Orders Buta/APAP/Caf/Cod [id number] [Fioricet w/Cod [id number]] 1 cap PO Q4H PRN 07/19/19 Clopidogrel [Plavix] 75 mg PO DAILY 07/19/19 Pantoprazole Sodium [Protonix] 40 mg PO BID 07/19/19 Atorvastatin [Lipitor] 80 mg PO HS #30 tab 07/21/19 Dextroamphetamine/Amphetamine [Adderall Xr 25 mg Capsule] 25 mg PO DAILY 03/01/22 Ezetimibe [Zetia] 10 mg PO DAILY 03/01/22 Metoclopramide [Reglan] 5 mg PO AC-BID 03/01/22 Aspirin 81 mg PO DAILY tab 03/02/22 Nicotine 14Mg/24Hr Patch [Habitrol] 1 patch TRANSDERM DAILY #14 patch 03/02/22 Dicyclomine [Bentyl] 20 mg PO QID 06/23/23 Ibuprofen [Motrin Ib] 600 mg PO DIRECTED PRN 06/23/23 Isosorbide Mononitrate [Isosorbide Mononitrate ER] 15 mg PO DAILY 06/23/23 Unk Vitamin A 1 tab PO DAILY 06/23/23 Unk Vitamin C 1 tab PO DAILY 06/23/23 Unk Vitamin D3 1 tab PO BID 06/23/23 Unk Zinc 1 tab PO BID 06/23/23 Vitamin B12 1 tab PO DAILY 06/23/23 Metoprolol Succinate [Metoprolol Succinate ER] 12.5 mg PO DAILY #0 06/28/23 Nitroglycerin Sl Tabs [Nitrostat] 0.4 mg SUBLINGUAL Q5M PRN #25 tab 06/28/23 HYDROcodone/APAP 7.5-325MG [Cranston 7.5-325] 1 tab PO TID PRN 30 Days #90 tab 09/29/23 HYDROcodone/APAP 7.5-325MG [Cranston 7.5-325] 1 tab PO TID PRN 30 Days #90 tab 09/29/23 Controlled Substance Measures - Controlled Substance Measures Is patient prescribed a controlled substance at discharge?: No
== END ==
LOC: PNWHC3 10:23
PROVIDERS: ATTEND Specialist
DX: M47.816 Spondylosis without myelopathy or radiculopathy, lumbar region (principal); M51.34 Other intervertebral disc degeneration, thoracic region; F17.200 Nicotine dependence, unspecified, uncomplicated; Z88.5 Allergy status to narcotic agent
CPT/HCPCS: 99211

== ENCOUNTER → 2023-11-28 | Outpatient (CLI) | payer OTHER ==
--- NOTE | 2023-11-29 12:56 | MR ---
EXAMINATION TYPE: MR thoracic spine wo con DATE OF EXAM: 11/28/2023 11:59 AM CLINICAL INDICATION:Female, 53 years old with history of M54.14 thoracic radiculopathy; PHH, Middle b ack pain, radiculopathy COMPARISON: No priors. TECHNIQUE: Multi planar, multi sequence imaging was performed utilizing: T1-weighted, short-tau inver ruthy recovery and T2-weighted of the thoracic spine. IV Contrast: cc (none if empty) FINDINGS: Alignment: Alignment is within normal limits. Vertebral bodies have preserved heights. Spinal cord: Spinal cord is within normal limits for signal. Discs: Intervertebral disc signal is maintained. No evidence of significant spinal canal or neural fo raminal stenosis. There is no evidence of extradural defects or central spinal canal narrowing at any thoracic vertebral body level Osseous structures: No abnormal bony edema on inversion recovery sequences. Mild osteophyte formation and facet joint arthropathy. Scattered disc space narrowing. Right adrenal nodule measuring 20 x 12 mm. IMPRESSION: 1. Mild degeneration changes throughout the spine without evidence for bony edema, significant spina l canal stenosis or significant neural foraminal stenosis. 2. Indeterminate right adrenal nodule measuring 20 x 12 mm further evaluation with adrenal mass pedi kiersten CT or MRI may be of benefit.
== END | disposition home or self-care (01) ==
LOC: RADMRIMAIN 11:13
PROVIDERS: ATTEND Physical Medicine & Rehabilitation
DX: M54.14 Radiculopathy, thoracic region (principal)
CPT/HCPCS: 72146

== ENCOUNTER → 2024-01-06 | Outpatient (CLI) | payer OTHER ==
[2024-01-06 19:06] LABS: Rheumatoid Factor, Qnt <15 IU/mL (0-15)
[2024-01-10 05:01] LABS: Cyclic Citrull Pep IgG Unit <1.5 U/mL (<=3.9); Cyclic Citrullinated Pep IgG Negative
[2024-01-10 20:10] LABS: Anti-DNA, DS unit <1.0 IU/mL; DNA Double-Stranded Negative (Negative)
== END | disposition home or self-care (01) ==
LOC: LABWHC1 14:21
PROVIDERS: ATTEND Physical Medicine & Rehabilitation
DX: I73.00 Raynaud's syndrome without gangrene (principal)
CPT/HCPCS: 36415; 85652; 86038; 86140; 86200; 86225; 86431

== ENCOUNTER 2024-01-23 19:29 | Observation (INO) | payer OTHER ==
[2024-01-23 20:09] LABS: Basophils % (A) 0 %; Eosinophils # (A) 0.3 k/uL (0-0.7); Eosinophils % (A) 3 %; HCT 39.4 % (34.0-46.0); HGB 13.2 gm/dL (11.4-16.0); Lymphocytes # (A) 2.7 k/uL (1.0-4.8); Lymphocytes % (A) 27 %; MCH 30.5 pg (25.0-35.0); MCHC 33.5 g/dL (31.0-37.0); MCV 91.1 fL (80.0-100.0); Mean Platelet Volume 7.1; Monocytes # (A) 0.5 k/uL (0-1.0); Monocytes % (A) 5 %; Neutrophils # (A) 6.5 k/uL (1.3-7.7); Neutrophils % (A) 63 %; Platelet Count 242 k/uL (150-450); RBC 4.32 m/uL (3.80-5.40); RDW 12.3 % (11.5-15.5); WBC 10.2 k/uL (3.8-10.6)
[2024-01-23 20:18] LABS: INR 0.9 (<1.2); Partial Thromboplastin Time 25.3 sec (22.0-30.0); Prothrombin Time 10.2 sec (10.0-12.5)
[2024-01-23 20:21] LABS: ALT 26 U/L (4-34); AST 23 U/L (14-36); African American GFR (CKD) >90 (>60 ml/min/1.73 sqM); Albumin 4.2 g/dL (3.5-5.0); Alkaline Phosphatase 109 U/L (38-126); Anion Gap 5 mmol/L; Blood Urea Nitrogen 12 mg/dL (7-17); Calcium 9.4 mg/dL (8.4-10.2); Carbon Dioxide 23 mmol/L (22-30); Chloride 110 mmol/L (98-107); Glucose 104 mg/dL (74-99); Magnesium 1.7 mg/dL (1.6-2.3); Non-African American GFR(CKD) >90 (>60 ml/min/1.73 sqM); Potassium 3.7 mmol/L (3.5-5.1); Sodium 138 mmol/L (137-145); Total Bilirubin 0.2 mg/dL (0.2-1.3); Total Protein 6.6 g/dL (6.3-8.2)
--- NOTE | 2024-01-23 20:25 | XR ---
EXAMINATION TYPE: XR chest 2V DATE OF EXAM: 01/23/2024 COMPARISON: 03/01/2022 HISTORY: Chest pain TECHNIQUE: Frontal and lateral views of the chest are obtained. FINDINGS: There is no focal air space opacity, pleural effusion, or pneumothorax seen. The cardiac silhouette size is within normal limits. The osseous structures are intact. IMPRESSION: No acute cardiopulmonary process. [facility], Workstation: [id number] 01/23/2024 8:22 PM
[2024-01-23] MEDS: ASPIRIN 81 MG PO STA (20:29)
[2024-01-23] MEDS: SODIUM CHLORIDE 0.9% 1,000 ML IV STA (20:29)
[2024-01-23] MEDS: NITROGLYCERIN OINT 1 INCH/GM PACKET TOPICAL SCH (20:30)
[2024-01-23] MEDS: MECLIZINE 12.5 MG TAB PO STA (20:37)
[2024-01-23] MEDS ORDERED: ONDANSETRON 4 MG/2 ML VIAL IVP PRN (21:08)
[2024-01-23] MEDS ORDERED: NALOXONE 0.4 MG/ML 1 ML VIAL IV PRN (21:08)
[2024-01-23] MEDS ORDERED: ACETAMINOPHEN TAB 325 MG TAB PO PRN (21:08)
--- NOTE | 2024-01-23 22:12 | ED ---
General Adult HPI - General Chief complaint: Chest Pain Stated complaint: Chest Pain Time Seen by Provider: 01/23/24 19:49 Source: patient, RN notes reviewed, old records reviewed Mode of arrival: EMS Limitations: no limitations - History of Present Illness Initial comments: Patient is a 53-year-old female who presents emergency department complaining of substernal chest pain. Told triage that radiates to the back however patient denies any radiation for me. States she felt nausea, diaphoretic, as well as lightheaded. States this has happened in the past when she has required stenting of her heart. Has a history of CAD with numerous cardiac stents, angina, hypertension. Currently denies any significant symptoms. States she took nitro at home which did improve her symptoms. Presents for further evaluation at this time due to her history. - Related Data Home Medications Medication Instructions Recorded Confirmed [place]/APAP/Caf/Cod 29-072-34-30 1 cap PO Q4H PRN 07/19/19 09/29/23 [Fioricet w/Cod 85-906-99-30MG] Clopidogrel [Plavix] 75 mg PO DAILY 07/19/19 09/29/23 Pantoprazole Sodium [Protonix] 40 mg PO BID 07/19/19 09/29/23 Dextroamphetamine/Amphetamine 25 mg PO DAILY 03/01/22 09/29/23 [Adderall Xr 25 mg Capsule] Ezetimibe [Zetia] 10 mg PO DAILY 03/01/22 09/29/23 Metoclopramide [Reglan] 5 mg PO AC-BID 03/01/22 09/29/23 Dicyclomine [Bentyl] 20 mg PO QID 06/23/23 09/29/23 Ibuprofen [Motrin Ib] 600 mg PO DIRECTED PRN 06/23/23 09/29/23 Isosorbide Mononitrate [Isosorbide 15 mg PO DAILY 06/23/23 09/29/23 Mononitrate ER] Unk Vitamin A 1 tab PO DAILY 06/23/23 09/29/23 Unk Vitamin C 1 tab PO DAILY 06/23/23 09/29/23 Unk Vitamin D3 1 tab PO BID 06/23/23 09/29/23 Unk Zinc 1 tab PO BID 06/23/23 09/29/23 Vitamin B12 1 tab PO DAILY 06/23/23 09/29/23 Previous Rx's Medication Instructions Recorded Atorvastatin [Lipitor] 80 mg PO HS #30 tab 07/21/19 Aspirin 81 mg PO DAILY tab 03/02/22 Nicotine 14Mg/24Hr Patch [Habitrol] 1 patch TRANSDERM DAILY #14 patch 03/02/22 Metoprolol Succinate [Metoprolol 12.5 mg PO DAILY #0 06/28/23 Succinate ER] Nitroglycerin Sl Tabs [Nitrostat] 0.4 mg SUBLINGUAL Q5M PRN #25 tab 06/28/23 Allergies Allergy/AdvReac Type Severity Reaction Status Date / Time hydromorphone [From Dilaudid] Allergy Mild Nausea Verified 09/29/23 10:50 hydrocodone [From Vicodin] Allergy Rash/Hives Verified 09/29/23 10:50 Review of Systems ROS Statement: Those systems with pertinent positive or pertinent negative responses have been documented in the HPI. Review of Systems: CONST: Denies fever EYES: Denies blurry vision ENT: Denies nasal congestion C/V: Denies Chest pain RESP: Denies shortness of breath GI: Denies abdominal pain : Denies dysuria SKIN: Denies rash. MSK: Denies joint pain. NEURO: Denies headache ROS Other: All systems not noted in ROS Statement are negative. 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 pt is currently wearing a heart monitor. Last Myocardial Infarction Date:: 2017 History of Any Multi-Drug Resistant Organisms: None Reported Past Surgical History: Appendectomy, Section, Heart Catheterization, Heart Catheterization With Stent, Hysterectomy Additional Past Surgical History / Comment(s): 7 total heart stents latest 06/27/23, colonoscopy Past Anesthesia/Blood Transfusion Reactions: No Reported Reaction Date of Last Stent Placement:: 06/27/23 Past Psychological History: ADD/ADHD Smoking Status: Current every day smoker - Past Family History Mother Family Medical History: Hyperlipidemia, Myocardial Infarction (ID) Additional Family Medical History / Comment(s): CABG. mothers side of family lots of heart issues. Father Additional Family Medical History / Comment(s): at 30 General Exam - General Exam Comments Initial Comments: General: Appears in no acute distress. HEAD: Normal with no signs of head trauma. EYES: EOMI ENT: Hearing grossly intact, normal oropharynx. RESPIRATORY: Clear breath sounds bilaterally. No wheezes, rales, or rhonchi. C/V: Regular rate and rhythm. S1 and S2 auscultated, no edema, peripheral pulses 2+ and intact throughout ABD: Abd is soft, nontender, nondistended EXT: Normal range of motion, no obvious deformity SKIN: No rashes or lesions observed on exposed skin. NEURO: Alert and oriented x 4. Limitations: no limitations Course Vital Signs 01/23/24 01/23/24 19:38 19:49 Temperature 97 F L Pulse Rate 70 71 Respiratory 20 18 Rate Blood Pressure 151/75 174/81 O2 Sat by Pulse 99 96 Oximetry Medical Decision Making - Medical Decision Making Was pt. sent in by a medical professional or institution (, PA, DIRECTOR OF WEB MARKETING, urgent care, hospital, or correction...) When possible be specific @ -No Did you speak to anyone other than the patient for history (EMS, parent, family, police, friend...)? What history was obtained from this source @ -No Did you review nursing and triage notes (agree or disagree)? Why? @ -I reviewed and agree with nursing and triage notes Were old charts reviewed (outside hosp., previous admission, EMS record, old EKG, old radiological studies, urgent care reports/EKG's, correction records)? Report findings @ -Charts including EKGs reviewed from June 2023 with no obvious acute changes when compared with today's EKGs. Differential Diagnosis (chest pain, altered mental status, abdominal pain women, abdominal pain men, vaginal bleeding, weakness, fever, dyspnea, syncope, headache, dizziness, GI bleed, back pain, seizure, CVA, palpatations, mental health, musculoskeletal)? @ -Differential Chest Pain: Stable Angina, Unstable Angina, STEMI, NSTEMI Aortic Dissection, Pneumothorax, Musculoskeletal, Esophageal Spasm GERD, Cholecystitis, Pancreatitis, Zoster, this is not meant to be an all-inclusive list. EKG interpreted by me (3pts min.). @ -As above X-rays interpreted by me (1pt min.). @ -Chest x-ray reveals no obvious acute cardiopulmonary process. CT interpreted by me (1pt min.). @ -None done U/S interpreted by me (1pt. min.). @ -None done What testing was considered but not performed or refused? (CT, X-rays, U/S, labs)? Why? @ -None What meds were considered but not given or refused? Why? @ -None Did you discuss the management of the patient with other professionals (professionals i.e. Dr., PA, DIRECTOR OF WEB MARKETING, lab, RT, psych nurse, social contact worker, pathologist assistant, teacher, security flex utility officer, wrapper caser)? Give summary @ -Discussed with ABDI Nixon of [facility] who is covering for Dr. Adamson who accepted the admission. Was smoking cessation discussed for >3mins.? @ -No Was critical care preformed (if so, how long)? @ -No Were there social determinants of health that impacted care today? How? (Homelessness, low income, unemployed, alcoholism, drug addiction, transportation, low edu. Level, literacy, decrease access to med. care, detention, rehab)? @ -No Was there de-escalation of care discussed even if they declined (Discuss DNR or withdrawal of care, Hospice)? DNR status @ -No What co-morbidities impacted this encounter? (DM, HTN, Smoking, COPD, CAD, Cancer, CVA, ARF, Chemo, Hep., AIDS, mental health diagnosis, sleep apnea, morbid obesity)? @ -CAD with multiple cardiac stents Was patient admitted / discharged? Hospital course, mention meds given and route, prescriptions, significant lab abnormalities, going to OR and other pe rtinent info. @ -Based on patient's presentation and physical exam, and concern for cardiac etiology for her symptoms. Currently is chest pain-free. Nitropaste will be applied as nitro did resolve her symptoms at home. Patient was given 324 mg of aspirin. Cardiac workup will be obtained. Vitals within acceptable limits. She was in agreement this plan. EKG x 2 shows no obvious acute ischemic changes. Chest x-ray unremarkable. Labs unremarkable including undetectable troponin, negative viral swabs. On reevaluation, I discussed the workup with the patient. She remains asymptomatic. Patient's heart score is moderate. Therefore we will admit the patient for cardiac observation. Patient was in agreement this plan. Cardiology consulted. Discussed with ABDI Taylor [facility] who is covering for Dr. Adamson who accepted the admission. Undiagnosed new problem with uncertain prognosis? @ -No Drug Therapy requiring intensive monitoring for toxicity (Heparin, Nitro, Insulin, Cardizem)? @ -No Were any procedures done? @ -No Diagnosis/symptom? @ -Chest pain Acute, or Chronic, or Acute on Chronic? @ -Acute Uncomplicated (without systemic symptoms) or Complicated (systemic symptoms)? @ -Complicated Side effects of treatment? @ -No Exacerbation, Progression, or Severe Exacerbation? @ -No Poses a threat to life or bodily function? How? (Chest pain, [place], ID, pneumonia, PE, COPD, DKA, ARF, appy, cholecystitis, CVA, Diverticulitis, Homicidal, Suicidal, threat to staff... and all critical care pts) @ -Potentially, yes could be CAD/ACS. - Lab Data Result diagrams: 01/23/24 19:55 01/23/24 19:55 Lab Results 01/23/24 01/23/24 01/23/24 Range/Units 19:55 19:55 19:55 WBC 10.2 (3.8-10.6) k/uL RBC 4.32 (3.80-5.40) m/uL Hgb 13.2 (11.4-16.0) gm/dL Hct 39.4 (34.0-46.0) % MCV 91.1 (80.0-100.0) fL MCH 30.5 (25.0-35.0) pg MCHC 33.5 (31.0-37.0) g/dL RDW 12.3 (11.5-15.5) % Plt Count 242 (150-450) k/uL MPV 7.1 Neutrophils % 63 % Lymphocytes % 27 % Monocytes % 5 % Eosinophils % 3 % Basophils % 0 % Neutrophils # 6.5 (1.3-7.7) k/uL Lymphocytes # 2.7 (1.0-4.8) k/uL Monocytes # 0.5 (0-1.0) k/uL Eosinophils # 0.3 (0-0.7) k/uL Basophils # 0.0 (0-0.2) k/uL PT 10.2 (10.0-12.5) sec INR 0.9 (<1.2) APTT 25.3 (22.0-30.0) sec Sodium 138 (137-145) mmol/L Potassium 3.7 (3.5-5.1) mmol/L Chloride 110 H (98-107) mmol/L Carbon Dioxide 23 (22-30) mmol/L Anion Gap 5 mmol/L BUN 12 (7-17) mg/dL Creatinine 0.53 (0.52-1.04) mg/dL Est GFR (CKD-EPI)AfAm >90 (>60 ml/min/1.73 sqM) Est GFR (CKD-EPI)NonAf >90 (>60 ml/min/1.73 sqM) Glucose 104 H (74-99) mg/dL Calcium 9.4 (8.4-10.2) mg/dL Magnesium 1.7 (1.6-2.3) mg/dL Total Bilirubin 0.2 (0.2-1.3) mg/dL AST 23 (14-36) U/L ALT 26 (4-34) U/L Alkaline Phosphatase 109 (38-126) U/L Troponin I (0.000-0.034) ng/mL Total Protein 6.6 (6.3-8.2) g/dL Albumin 4.2 (3.5-5.0) g/dL Influenza Type A (PCR) (Not Detectd) Influenza Type B (PCR) (Not Detectd) RSV (PCR) (Not Detectd) SARS-CoV-2 (PCR) (Not Detectd) 01/23/24 01/23/24 Range/Units 19:55 20:02 WBC (3.8-10.6) k/uL RBC (3.80-5.40) m/uL Hgb (11.4-16.0) gm/dL Hct (34.0-46.0) % MCV (80.0-100.0) fL MCH (25.0-35.0) pg MCHC (31.0-37.0) g/dL RDW (11.5-15.5) % Plt Count (150-450) k/uL MPV Neutrophils % % Lymphocytes % % Monocytes % % Eosinophils % % Basophils % % Neutrophils # (1.3-7.7) k/uL Lymphocytes # (1.0-4.8) k/uL Monocytes # (0-1.0) k/uL Eosinophils # (0-0.7) k/uL Basophils # (0-0.2) k/uL PT (10.0-12.5) sec INR (<1.2) APTT (22.0-30.0) sec Sodium (137-145) mmol/L Potassium (3.5-5.1) mmol/L Chloride (98-107) mmol/L Carbon Dioxide (22-30) mmol/L Anion Gap mmol/L BUN (7-17) mg/dL Creatinine (0.52-1.04) mg/dL Est GFR (CKD-EPI)AfAm (>60 ml/min/1.73 sqM) Est GFR (CKD-EPI)NonAf (>60 ml/min/1.73 sqM) Glucose (74-99) mg/dL Calcium (8.4-10.2) mg/dL Magnesium (1.6-2.3) mg/dL Total Bilirubin (0.2-1.3) mg/dL AST (14-36) U/L ALT (4-34) U/L Alkaline Phosphatase (38-126) U/L Troponin I <0.012 (0.000-0.034) ng/mL Total Protein (6.3-8.2) g/dL Albumin (3.5-5.0) g/dL Influenza Type A (PCR) Not Detected (Not Detectd) Influenza Type B (PCR) Not Detected (Not Detectd) RSV (PCR) Not Detected (Not Detectd) SARS-CoV-2 (PCR) Not Detected (Not Detectd) - EKG Data -: EKG Interpreted by Me EKG Comments: 12-lead Electrocardiogram Interpretation Note EKG was reviewed and interpreted by myself. 12-lead ECG performed at 1932 is interpreted by me as revealing normal sinus rhythm at a rate of 73 beats per minute. [place] is normal. IN interval is 167 ms, QRS duration is 94 ms, QTc is 424 ms.. There were no ST or T wave abnormalities to suggest myocardial ischemia or injury. R wave progression across the precordium was satisfactory. By my interpretation this EKG is non-diagnostic for acute ischemia. 12-lead Electrocardiogram Interpretation Note EKG was reviewed and interpreted by myself. 12-lead ECG performed at 2112 is interpreted by me as revealing sinus bradycardia at a rate of 58 beats per minute. [place] is normal. IN interval is 180 ms, QRS duration is 92 ms, QTc is 439 ms.. There were no ST or T wave abnormalities to suggest myocardial ischemia or injury. R wave progression across the precordium was satisfactory. By my interpretation this EKG is non-diagnostic for acute ischemia. Disposition Clinical Impression: Chest pain Disposition: ADMITTED IP TO THIS HOSP Condition: Stable Referrals: Axel Abrams MD [Primary Care Provider] - 1-2 days Time of Disposition: 21:00
[2024-01-24] MEDS: HEPARIN SODIUM,PORCINE 5,000 UNIT/ML 1 ML VIAL SQ SCH (00:58)
[2024-01-24] MEDS: PANTOPRAZOLE 40 MG TABLET PO SCH (00:59)
[2024-01-24] MEDS: DICYCLOMINE 10 MG CAP PO SCH (00:59)
[2024-01-24] MEDS: BUTA/APAP/CAF/COD 50-325-40-30 CAP PO PRN (02:43)
[2024-01-24 04:08] LABS: Basophils % (A) 0 %; Eosinophils # (A) 0.3 k/uL (0-0.7); Eosinophils % (A) 3 %; HCT 35.4 % (34.0-46.0); HGB 11.8 gm/dL (11.4-16.0); Lymphocytes # (A) 2.4 k/uL (1.0-4.8); Lymphocytes % (A) 29 %; MCH 30.4 pg (25.0-35.0); MCHC 33.3 g/dL (31.0-37.0); MCV 91.2 fL (80.0-100.0); Mean Platelet Volume 7.5; Monocytes # (A) 0.5 k/uL (0-1.0); Monocytes % (A) 6 %; Neutrophils # (A) 5.1 k/uL (1.3-7.7); Neutrophils % (A) 60 %; Platelet Count 185 k/uL (150-450); RBC 3.89 m/uL (3.80-5.40); RDW 12.3 % (11.5-15.5); WBC 8.5 k/uL (3.8-10.6)
[2024-01-24 04:15] LABS: ALT 22 U/L (4-34); AST 19 U/L (14-36); African American GFR (CKD) >90 (>60 ml/min/1.73 sqM); Albumin 3.6 g/dL (3.5-5.0); Alkaline Phosphatase 88 U/L (38-126); Anion Gap 4 mmol/L; Blood Urea Nitrogen 13 mg/dL (7-17); Calcium 8.7 mg/dL (8.4-10.2); Carbon Dioxide 22 mmol/L (22-30); Chloride 114 mmol/L (98-107); Glucose 89 mg/dL (74-99); Non-African American GFR(CKD) >90 (>60 ml/min/1.73 sqM); Sodium 140 mmol/L (137-145); Total Bilirubin 0.2 mg/dL (0.2-1.3); Total Protein 5.6 g/dL (6.3-8.2)
[2024-01-24] MEDS: METOCLOPRAMIDE 5 MG TAB PO SCH (06:23)
[2024-01-24 07:25] VITALS: RESP 14
[2024-01-24] MEDS ORDERED: REGADENOSON 0.4 MG/5 ML SYRINGE IV ONE (08:00)
[2024-01-24] MEDS ORDERED: IBUPROFEN 200 MG TAB PO PRN (09:00)
[2024-01-24] MEDS: CLOPIDOGREL 75 MG TAB PO SCH (09:09)
[2024-01-24] MEDS: ASPIRIN 81 MG PO SCH (09:10)
[2024-01-24] MEDS: DEXTROAMPHETAMINE PO SCH (09:10)
[2024-01-24] MEDS: [UNRECOGNIZED DRUG - OTHER] PO SCH (09:10)
[2024-01-24] MEDS: AMPHETAMINE PO SCH (09:10)
[2024-01-24] MEDS: EZETIMIBE 10 MG TAB PO SCH (09:10)
--- NOTE | 2024-01-24 10:32 | P.CRDCN ---
History of Present Illness History of present illness: HISTORY OF PRESENT ILLNESS: This is a 53-year-old female with a past medical history significant for coronary artery disease with previous stenting, hypertension, hyperlipidemia, coronary vasospasm, and nicotine dependence. Patient follows in the office with Dr. Charles. We have been asked to see the patient in consultation for chest pain. Patient examined at the bedside. Patient states that she was at [facility] yesterday when she began to have chest pain. She states that she went out to her car and took a nitro and had improvement with her chest pain but then it returned. She took a second nitro with improvement in her chest pain again so she came to the emergency room. She reports shortness of breath, nausea, and dizziness at this time. She states her pain is similar to previous episodes when she required stenting. At the time of examination, patient denies any chest pain or pressure. She states she is still smoking but has cut down and is smoking less than 1 pack a day. DIAGNOSTICS: - EKG reveals sinus mechanism with no signs of acute ischemia - Chest xray negative for acute process - Laboratory data: WBC 8.5. Hemoglobin 11.8. Platelet count 185. Sodium 140. Potassium 4.0. BUN 13. Creatinine 0.50. Magnesium 1.7. Troponin negative x 3. - Current home cardiac medications include aspirin 81 mg daily, Plavix 75 mg daily, Zetia 10 mg daily, Imdur 15 mg daily, metoprolol succinate 12.5 mg daily, Lipitor 80 mg at night - Most recent echocardiogram obtained in January 2022 revealed ejection fraction 55 to 60% with mild MR and mild TR and mild AI - Cardiac catheterization history: June 2023 with stenting of the distal LAD. Mild in-stent restenosis of the mid RCA. Mild to moderate disease involving the proximal RCA. Patent stent in the left circumflex. Mild to moderate disease involving the circumflex distal to the stented segment. Also severe disease involving the OM 1 by the ostium. REVIEW OF SYSTEMS: At the time of my exam: CONSTITUTIONAL: Denies fever or chills. HEENT: Denies blurred vision, vision changes, or eye pain. Denies hemoptysis CARDIOVASCULAR: Denies chest pain. Denies orthopnea. Denies PND. Denies palpitations RESPIRATORY: Denies shortness of breath. GASTROINTESTINAL: Denies abdominal pain. Denies nausea or vomiting. HEMATOLOGIC: Denies bleeding disorders. GENITOURINARY: Denies any blood in urine. SKIN: Denies pruitis. Denies rash. PHYSICAL EXAM: VITAL SIGNS: Reviewed. GENERAL: Well-developed in no acute distress. HEENT: Head is normocephalic. Pupils are equal, round. Sclerae anicteric. Mucous membranes of the mouth are moist. Neck supple. No JVD or thyromegaly LUNGS: Respirations even and unlabored. Lungs essentially clear to auscultation bilaterally. HEART: Regular rate and rhythm. S1 and S2 heard. ABDOMEN: Soft. Nondistended. Nontender. EXTREMITIES: Normal range of motion. No clubbing or cyanosis. Peripheral pulses intact. No lower extremity edema NEUROLOGIC: Awake and alert. Oriented x 3. ASSESSMENT: Chest pain, troponin negative x 3 Coronary artery disease with previous stenting, most recently to distal LAD, 06/2023 Hypertension Hyperlipidemia History of coronary vasospasm Nicotine dependence, patient smoking 1 pack/day PLAN: An acute coronary event has been ruled out Continue dual antiplatelet therapy with aspirin and Plavix due to stenting earlier this year. Continue statin therapy. Resume additional home cardiac medications Smoking cessation recommended. Obtain 2D echo to assess cardiac structure and function Patient to undergo stress echocardiogram today If negative, she may be discharged home and follow-up in the office with Dr. Charles Nurse practitioner note has been reviewed by physician. Signing provider agrees with the documented findings, assessment, and plan of care documented by ALIGNING INSPECTOR as a scribe. 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 pt is currently wearing a heart monitor. Last Myocardial Infarction Date:: 2017 History of Any Multi-Drug Resistant Organisms: None Reported Past Surgical History: Appendectomy, Section, Heart Catheterization, He art Catheterization With Stent, Hysterectomy Additional Past Surgical History / Comment(s): 7 total heart stents latest 06/27/23, colonoscopy Past Anesthesia/Blood Transfusion Reactions: No Reported Reaction Date of Last Stent Placement:: 06/27/23 Past Psychological History: ADD/ADHD Smoking Status: Current every day smoker Past Alcohol Use History: Occasional Additional Past Alcohol Use History / Comment(s): 1/2 ppd to 1 pack trying to quit Past Drug Use History: None Reported - Past Family History Mother Family Medical History: Hyperlipidemia, Myocardial Infarction (ID) Additional Family Medical History / Comment(s): CABG. mothers side of family lots of heart issues. Father Additional Family Medical History / Comment(s): at 30 Medications and Allergies Home Medications Medication Instructions Recorded Confirmed Type Buta/APAP/Caf/Cod 93-692-27-30 1 cap PO Q4H PRN 07/19/19 01/24/24 History [Fioricet w/Cod 08-746-18-30MG] Clopidogrel [Plavix] 75 mg PO DAILY 07/19/19 01/24/24 History Pantoprazole Sodium [Protonix] 40 mg PO BID 07/19/19 01/24/24 History Atorvastatin [Lipitor] 80 mg PO HS #30 tab 07/21/19 01/24/24 Rx Dextroamphetamine/Amphetamine 25 mg PO DAILY 03/01/22 01/24/24 History [Adderall Xr 25 mg Capsule] Ezetimibe [Zetia] 10 mg PO DAILY 03/01/22 01/24/24 History Metoclopramide [Reglan] 5 mg PO AC-BID 03/01/22 01/24/24 History Aspirin 81 mg PO DAILY tab 03/02/22 01/24/24 Rx Dicyclomine [Bentyl] 20 mg PO QID 06/23/23 01/24/24 History Ibuprofen [Motrin Ib] 600 mg PO Q6H PRN 06/23/23 01/24/24 History Isosorbide Mononitrate [Isosorbide 15 mg PO DAILY 06/23/23 01/24/24 History Mononitrate ER] Unk Vitamin A 1 tab PO DAILY 06/23/23 01/24/24 History Unk Vitamin C 1 tab PO DAILY 06/23/23 01/24/24 History Unk Vitamin D3 1 tab PO BID 06/23/23 01/24/24 History Unk Zinc 1 tab PO BID 06/23/23 01/24/24 History Vitamin B12 1 tab PO DAILY 06/23/23 01/24/24 History Metoprolol Succinate [Metoprolol 12.5 mg PO DAILY #0 06/28/23 01/24/24 Rx Succinate ER] Nicotine 14Mg/24Hr Patch [Habitrol] 1 patch TRANSDERM DAILY PRN 01/24/24 01/24/24 History Nitroglycerin Sl Tabs [Nitrostat] 0.4 mg SL Q5M PRN 01/24/24 01/24/24 History Pregabalin [Lyrica] 50 mg PO BID 01/24/24 01/24/24 History Allergies Allergy/AdvReac Type Severity Reaction Status Date / Time hydromorphone [From Dilaudid] Allergy Mild Nausea/itch Verified 01/24/24 10:18 ing hydrocodone [From Vicodin] Allergy Rash/Hives Verified 01/24/24 10:18 Physical Exam Vitals: Vital Signs Temp Pulse Pulse Resp BP BP BP 01/24/24 07:00 97.6 F 53 L 14 119/71 01/24/24 02:00 97.6 F 54 L 16 156/80 01/24/24 01:32 56 L 18 143/68 01/24/24 00:54 80 18 146/83 01/24/24 00:00 66 18 125/55 01/23/24 22:00 74 18 166/76 01/23/24 21:00 68 18 172/78 01/23/24 19:49 71 18 174/81 01/23/24 19:38 97 F L 70 20 151/75 Pulse Ox 01/24/24 07:00 98 01/24/24 02:00 98 01/24/24 01:32 96 01/24/24 00:54 96 01/24/24 00:00 97 01/23/24 22:00 98 01/23/24 21:00 97 01/23/24 19:49 96 01/23/24 19:38 99 Intake and Output 01/23/24 01/24/24 01/24/24 22:59 06:59 14:59 Intake Total 0 Balance 0 Intake: Oral 0 Other: # Voids 2 Weight 63.503 kg 63.503 kg Results 01/24/24 03:03 01/24/24 03:03 Cardiac Enzymes 01/23/24 01/23/24 01/24/24 Range/Units 19:55 19:55 00:30 AST 23 (14-36) U/L Troponin I <0.012 <0.012 (0.000-0.034) ng/mL 01/24/24 01/24/24 Range/Units 03:03 03:03 AST 19 (14-36) U/L Troponin I <0.012 (0.000-0.034) ng/mL Coagulation 01/23/24 Range/Units 19:55 PT 10.2 (10.0-12.5) sec APTT 25.3 (22.0-30.0) sec CBC 01/23/24 01/24/24 Range/Units 19:55 03:03 WBC 10.2 8.5 (3.8-10.6) k/uL RBC 4.32 3.89 (3.80-5.40) m/uL Hgb 13.2 11.8 (11.4-16.0) gm/dL Hct 39.4 35.4 (34.0-46.0) % Plt Count 242 185 (150-450) k/uL Comprehensive Metabolic Panel 01/23/24 01/24/24 Range/Units 19:55 03:03 Sodium 138 140 (137-145) mmol/L Potassium 3.7 4.0 (3.5-5.1) mmol/L Chloride 110 H 114 H (98-107) mmol/L Carbon Dioxide 23 22 (22-30) mmol/L BUN 12 13 (7-17) mg/dL Creatinine 0.53 0.50 L (0.52-1.04) mg/dL Glucose 104 H 89 (74-99) mg/dL Calcium 9.4 8.7 (8.4-10.2) mg/dL AST 23 19 (14-36) U/L ALT 26 22 (4-34) U/L Alkaline Phosphatase 109 88 (38-126) U/L Total Protein 6.6 5.6 L (6.3-8.2) g/dL Albumin 4.2 3.6 (3.5-5.0) g/dL Current Medications Generic Name Dose Route Start Last Admin Trade Name Freq PRN Reason Stop Dose Admin Acetam/Butalbital/Caffeine/Codeine 1 each 01/24/24 03:00 01/24/24 02:43 Buta/Apap/Caf/Cod 45-151-59-30 Cap PO 1 each Q4H PRN Administration Migraine Headache Acetaminophen 650 mg 01/23/24 21:08 Acetaminophen Tab 325 Mg Tab PO Q6HR PRN Mild Pain or Fever > 100.5 Aspirin 81 mg 01/24/24 09:00 Aspirin 81 Mg PO DAILY [facility] Atorvastatin Calcium 80 mg 01/24/24 21:00 Atorvastatin 80 Mg Tab PO HS [facility] Clopidogrel Bisulfate 75 mg 01/24/24 09:00 Clopidogrel 75 Mg Tab PO DAILY [facility] Dicyclomine HCl 20 mg 01/24/24 00:30 01/24/24 00:59 Dicyclomine 10 Mg Cap PO 20 mg QID [facility] Administration Ezetimibe 10 mg 01/24/24 09:00 Ezetimibe 10 Mg Tab PO DAILY [facility] Heparin Sodium (Porcine) 5,000 unit 01/24/24 00:00 01/24/24 00:58 Heparin Sodium,Porcine 5,000 Unit/Ml 1 Ml Vial SQ 5,000 unit Q8HR [facility] Administration Ibuprofen 600 mg 01/24/24 09:00 Ibuprofen 200 Mg Tab PO DAILY PRN Pain Isosorbide Mononitrate 15 mg 01/24/24 09:00 Isosorbide Mononitrate Er 15 Mg Tab PO DAILY [facility] Metoclopramide HCl 5 mg 01/24/24 07:30 01/24/24 06:23 Metoclopramide 5 Mg Tab PO 5 mg AC-BID [facility] Administration Metoprolol Succinate 12.5 mg 01/24/24 09:00 Metoprolol Succinate (Er) 25 Mg Tab.Er.24h PO DAILY [facility] Naloxone HCl 0.2 mg 01/23/24 21:08 Naloxone 0.4 Mg/Ml 1 Ml Vial IV Q2M PRN Opioid Reversal Non-Formulary Medication 25 mg 01/24/24 09:00 Dextroamphetamine/Amphetamine [Adderall Xr 25 Mg Capsule] PO DAILY [facility] Ondansetron HCl 4 mg 01/23/24 21:08 Ondansetron 4 Mg/2 Ml Vial IVP Q8HR PRN Nausea And Vomiting Pantoprazole Sodium 40 mg 01/24/24 00:00 01/24/24 00:59 Pantoprazole 40 Mg Tablet PO 40 mg BID [facility] Administration Intake and Output 01/23/24 01/24/24 01/24/24 22:59 06:59 14:59 Intake Total 0 Balance 0 Intake: Oral 0 Other: # Voids 2 Weight 63.503 kg 63.503 kg 01/24/24 03:03 01/24/24 03:03
[2024-01-24] MEDS: ISOSORBIDE MONONITRATE ER 15 MG TAB PO SCH (14:36)
[2024-01-24] MEDS: METOPROLOL SUCCINATE (ER) 25 MG TAB.ER.24H PO SCH (14:36)
--- NOTE | 2024-01-24 14:38 | NM ---
EXAMINATION TYPE: NM stress lexiscan cardiolite DATE OF EXAM: 01/24/2024 COMPARISON: NONE CLINICAL INDICATION: Female, 53 years old with history of cp; TECHNIQUE: After the intravenous administration of 9.66 mCi Tc 99m Sestamibi - Cardiolite resting SP ECT images acquired 45 minutes post injection. The patient received 0.4mg Lexiscan, 24.3 mCi Tc 99m Sestamibi - Stress images obtained [address] injection FINDINGS: Review of stress and rest SPECT images demonstrates no distinct perfusion abnormality. Gated analysi s shows normal wall motion with an estimated left ventricular ejection fraction of 63 %. IMPRESSION: No scintigraphic evidence for reversible ischemia. [facility], , 01/24/2024 2:36 PM
--- NOTE | 2024-01-24 15:35 | P.HPIM ---
History of Present Illness H&P Date: 01/24/24 History of present illness: 61-year-old female with past medical history significant for coronary artery disease status post multiple stents, hyperlipidemia, peptic ulcer disease, GERD, bowel spasm, valve regurgitation who presented to ER with a complaint of chest pain. Patient tachycardic catheterization June 2023, had stent of LAD at that time. Patient now presented with chest pain, which was nonradiating, felt nausea, diaphoretic and lightheaded and stated that it felt similar to when fallon jerry had [place] required stent of the heart in the past. Patient denied any fever, chills, sore throat, productive cough, palpitations, vomiting diarrhea constipation abdominal pain dysuria urgency frequency weakness or numbness of extremities. Patient is afebrile, heart rate 53, respiratory rate 14, blood pressure 119/71, saturating 98% on room air. WBCs 8.5, hemoglobin 11.8, platelets 185. Sodium 140, potassium 4.0, BUN 13, creatinine 0.50. Troponin negative x 3. EKG showed normal sinus rhythm, no acute ST-T wave changes. REVIEW OF SYSTEMS: CONSTITUTIONAL: No fever, no malaise, no fatigue. HEENT: No recent visual problems or hearing problems. Denied any sore throat. CARDIOVASCULAR: Complains of chest pain, nausea, diaphoresis. PULMONARY: No shortness of breath, no cough, no hemoptysis. GASTROINTESTINAL: No diarrhea, no nausea, no vomiting, no abdominal pain. NEUROLOGICAL: No headaches, no weakness, no numbness. HEMATOLOGICAL: Denies any bleeding or petechiae. GENITOURINARY: Denies any burning micturition, frequency, or urgency. MUSCULOSKELETAL/RHEUMATOLOGICAL: Denies any joint pain, swelling, or any muscle pain. ENDOCRINE: Denies any polyuria or polydipsia. The rest of the 14-point review of systems is negative. PHYSICAL EXAMINATION: GENERAL: The patient is A&O x3, NAD HEENT: EOMI, Sclerae anicteric, Moist Mucous membranes Neck: Supple, Non tender, No JVD PULMONARY: Equal breath souds B/L, No wheezing, No crackles. CARDIOVASCULAR: S1, S2 present. No murmurs, rubs, or gallops. ABDOMEN: Soft, nontender, nondistended, normoactive bowel sounds. No guarding or rebound tenderness. MUSCULOSKELETAL: No edema, No cyanosis. No clubbing. Normal ROM. Intact peripher al pulses. EXTREMITIES: No cyanosis, clubbing, or pedal edema. NEUROLOGICAL: CN 2-12 grossly intact. No FND Assessment and plan: Chest pain: History of CAD status post multiple stent Most recent LAD stent in June 2023: Hypertension: Hyperlipidemia: Patient presented with chest pain, EKG and troponin unremarkable. Monitor with serial EKG and troponin. Continue home meds including dual antiplatelet, statin, Imdur, metoprolol, Zetia. Echocardiogram Cardiology consult DVT prophylaxis Subcutaneous heparin Monitor vital signs and labs Labs and medication were reviewed. Continue same treatment. Further recommendations as per clinical course of the patient Dictation was produced using [employer] dictation software. please excuse any grammatical, word or spelling errors. 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 pt is currently wearing a heart monitor. Last Myocardial Infarction Date:: 2017 History of Any Multi-Drug Resistant Organisms: None Reported Past Surgical History: Appendectomy, Section, Heart Catheterization, Heart Catheterization With Stent, Hysterectomy Additional Past Surgical History / Comment(s): 7 total heart stents latest 06/27/23, colonoscopy Past Anesthesia/Blood Transfusion Reactions: No Reported Reaction Date of Last Stent Placement:: 06/27/23 Past Psychological History: ADD/ADHD Smoking Status: Current every day smoker Past Alcohol Use History: Occasional Additional Past Alcohol Use History / Comment(s): 1/2 ppd to 1 pack trying to quit Past Drug Use History: None Reported - Past Family History Mother Family Medical History: Hyperlipidemia, Myocardial Infarction ([place]) Additional Family Medical History / Comment(s): CABG. mothers side of family lots of heart issues. Father Additional Family Medical History / Comment(s): at 30 Medications and Allergies Home Medications Medication Instructions Recorded Confirmed Type Buta/APAP/Caf/Cod 54-825-63-30 1 cap PO Q4H PRN 07/19/19 01/24/24 History [Fioricet w/Cod 60-983-15-30MG] Clopidogrel [Plavix] 75 mg PO DAILY 07/19/19 01/24/24 History Pantoprazole Sodium [Protonix] 40 mg PO BID 07/19/19 01/24/24 History Atorvastatin [Lipitor] 80 mg PO HS #30 tab 07/21/19 01/24/24 Rx Dextroamphetamine/Amphetamine 25 mg PO DAILY 03/01/22 01/24/24 History [Adderall Xr 25 mg Capsule] Ezetimibe [Zetia] 10 mg PO DAILY 03/01/22 01/24/24 History Metoclopramide [Reglan] 5 mg PO AC-BID 03/01/22 01/24/24 History Aspirin 81 mg PO DAILY tab 03/02/22 01/24/24 Rx Dicyclomine [Bentyl] 20 mg PO QID 06/23/23 01/24/24 History Ibuprofen [Motrin Ib] 600 mg PO Q6H PRN 06/23/23 01/24/24 History Isosorbide Mononitrate [Isosorbide 15 mg PO DAILY 06/23/23 01/24/24 History Mononitrate ER] Unk Vitamin A 1 tab PO DAILY 06/23/23 01/24/24 History Unk Vitamin C 1 tab PO DAILY 06/23/23 01/24/24 History Unk Vitamin D3 1 tab PO BID 06/23/23 01/24/24 History Unk Zinc 1 tab PO BID 06/23/23 01/24/24 History Vitamin B12 1 tab PO DAILY 06/23/23 01/24/24 History Metoprolol Succinate [Metoprolol 12.5 mg PO DAILY #0 06/28/23 01/24/24 Rx Succinate ER] Nicotine 14Mg/24Hr Patch [Habitrol] 1 patch TRANSDERM DAILY PRN 01/24/24 01/24/24 History Nitroglycerin Sl Tabs [Nitrostat] 0.4 mg SL Q5M PRN 01/24/24 01/24/24 History Pregabalin [Lyrica] 50 mg PO BID 01/24/24 01/24/24 History Allergies Allergy/AdvReac Type Severity Reaction Status Date / Time hydromorphone [From Dilaudid] Allergy Mild Nausea/itch Verified 01/24/24 10:18 ing hydrocodone [From Vicodin] Allergy Rash/Hives Verified 01/24/24 10:18 Physical Exam Vitals: Vital Signs Temp Pulse Pulse Resp BP BP BP 01/24/24 08:00 14 01/24/24 07:00 97.6 F 53 L 14 119/71 01/24/24 02:00 97.6 F 54 L 16 156/80 01/24/24 01:32 56 L 18 143/68 01/24/24 00:54 80 18 146/83 01/24/24 00:00 66 18 125/55 01/23/24 22:00 74 18 166/76 01/23/24 21:00 68 18 172/78 01/23/24 19:49 71 18 174/81 01/23/24 19:38 97 F L 70 20 151/75 Pulse Ox 01/24/24 08:00 01/24/24 07:00 98 01/24/24 02:00 98 01/24/24 01:32 96 01/24/24 00:54 96 01/24/24 00:00 97 01/23/24 22:00 98 01/23/24 21:00 97 01/23/24 19:49 96 01/23/24 19:38 99 Intake and Output 01/23/24 01/24/24 01/24/24 22:59 06:59 14:59 Intake Total 0 Balance 0 Intake: Oral 0 Other: # Voids 2 Weight 63.503 kg 63.503 kg Results CBC & Chem 7: 01/24/24 03:03 01/24/24 03:03 Labs: Abnormal Lab Results - Last 24 Hours (Table) 01/23/24 01/24/24 Range/Units 19:55 03:03 Chloride 110 H 114 H (98-107) mmol/L Creatinine 0.50 L (0.52-1.04) mg/dL Glucose 104 H (74-99) mg/dL Total Protein 5.6 L (6.3-8.2) g/dL Thrombosis Risk Factor Assmnt - Choose All That Apply Any of the Below Risk Factors Present?: Yes Each Factor Represents 1 point: Age 41-60 years Other Risk Factors: No Other congenital or acquired thrombophilia - If yes, enter type in comment: No Thrombosis Risk Factor Assessment Total Risk Factor Score: 1 Thrombosis Risk Factor Assessment Level: Low Risk
--- NOTE | 2024-01-24 15:41 | P.DS ---
Providers Date of admission: 01/23/24 21:11 Expected date of discharge: 01/24/24 Attending physician: Bailey Medellin Consults: 01/23/24 21:08 Consult Physician Routine Consulting Provider: [facility] Consult Reason/Comments: chest pain Do you want consulting provider notified?: Yes Primary care physician: Axel Abrams [facility] Course: Discharge diagnoses: Chest pain: History of CAD status post multiple stent Most recent LAD stent in June 2023: Hypertension: Hyperlipidemia: Patient presented with chest pain, EKG and troponin unremarkable. Continue home meds including dual antiplatelet--aspirin and Plavix, statin, Imdur, metoprolol, Zetia. Cardiology consulted, recommended echocardiogram and Lexiscan stress test which was unremarkable, okay to discharge per cardiology and outpatient follow-up with cardiology. Hospital course: 61-year-old female with past medical history significant for coronary artery disease status post multiple stents, hyperlipidemia, peptic ulcer disease, GERD, bowel spasm, valve regurgitation who presented to ER with a complaint of chest pain. Patient tachycardic catheterization June 2023, had stent of LAD at that time. Patient now presented with chest pain, which was nonradiating, felt nausea, diaphoretic and lightheaded and stated that it felt similar to when patient had [place] required stent of the heart in the past. Patient denied any fever, chills, sore throat, productive cough, palpitations, vomiting diarrhea constipation abdominal pain dysuria urgency frequency weakness or numbness of extremities. Patient is afebrile, heart rate 53, respiratory rate 14, blood pressure 119/71, saturating 98% on room air. WBCs 8.5, hemoglobin 11.8, platelets 185. Sodium 140, potassium 4.0, BUN 13, creatinine 0.50. Troponin negative x 3. EKG showed normal sinus rhythm, no acute ST-T wave changes. Patient was admitted hospital for further evaluation and management. Patient's home medication was resumed. Cardiology consulted. Patient underwent Lexiscan stress test which was unremarkable. Patient remained asymptomatic. Okay to discharge per cardiology and outpatient follow-up with cardiology. PHYSICAL EXAMINATION: GENERAL: The patient is A&O x3, NAD HEENT: EOMI, Sclerae anicteric, Moist Mucous membranes Neck: Supple, Non tender, No JVD PULMONARY: Equal breath souds B/L, No wheezing, No crackles. CARDIOVASCULAR: S1, S2 present. No murmurs, rubs, or gallops. ABDOMEN: Soft, nontender, nondistended, normoactive bowel sounds. No guarding or rebound tenderness. MUSCULOSKELETAL: No edema, No cyanosis. No clubbing. Normal ROM. Intact peripheral pulses. EXTREMITIES: No cyanosis, clubbing, or pedal edema. NEUROLOGICAL: CN 2-12 grossly intact. No FND SKIN: No rashes. Dictation was produced using [employer] dictation software. please excuse any grammatical, word or spelling errors. Patient Condition at Discharge: Fair Plan - Discharge Summary Discharge Rx Participant: No New Discharge Prescriptions: Continue Pantoprazole Sodium [Protonix] 40 mg PO BID Clopidogrel [Plavix] 75 mg PO DAILY Buta/APAP/Caf/Cod 28-688-90-30 [Fioricet w/Cod 60-599-80-30MG] 1 cap PO Q4H PRN PRN Reason: Migraine Headache Atorvastatin [Lipitor] 80 mg PO HS #30 tab Dextroamphetamine/Amphetamine [Adderall Xr 25 mg Capsule] 25 mg PO DAILY Ezetimibe [Zetia] 10 mg PO DAILY Aspirin 81 mg PO DAILY tab Dicyclomine [Bentyl] 20 mg PO QID Isosorbide Mononitrate [Isosorbide Mononitrate ER] 15 mg PO DAILY Unk Zinc 1 tab PO BID Unk Vitamin D3 1 tab PO BID Unk Vitamin A 1 tab PO DAILY Metoprolol Succinate [Metoprolol Succinate ER] 12.5 mg PO DAILY #0 Nitroglycerin Sl Tabs [Nitrostat] 0.4 mg SL Q5M PRN PRN Reason: Chest Pain Nicotine 14Mg/24Hr Patch [Habitrol] 1 patch TRANSDERM DAILY PRN PRN Reason: Nicotine Cravings Metoclopramide [Reglan] 5 mg PO AC-BID Vitamin B12 1 tab PO DAILY Unk Vitamin C 1 tab PO DAILY Ibuprofen [Motrin Ib] 600 mg PO Q6H PRN PRN Reason: Pain Pregabalin [Lyrica] 50 mg PO BID Discharge Medication List Buta/APAP/Caf/Cod 01-694-27-30 [Fioricet w/Cod 28-265-83-30MG] 1 cap PO Q4H PRN 07/19/19 [History] Clopidogrel [Plavix] 75 mg PO DAILY 07/19/19 [History] Pantoprazole Sodium [Protonix] 40 mg PO BID 07/19/19 [History] Atorvastatin [Lipitor] 80 mg PO HS #30 tab 07/21/19 [Rx] Dextroamphetamine/Amphetamine [Adderall Xr 25 mg Capsule] 25 mg PO DAILY 03/01/22 [History] Ezetimibe [Zetia] 10 mg PO DAILY 03/01/22 [History] Metoclopramide [Reglan] 5 mg PO AC-BID 03/01/22 [History] Aspirin 81 mg PO DAILY tab 03/02/22 [Rx] Dicyclomine [Bentyl] 20 mg PO QID 06/23/23 [History] Ibuprofen [Motrin Ib] 600 mg PO Q6H PRN 06/23/23 [History] Isosorbide Mononitrate [Isosorbide Mononitrate ER] 15 mg PO DAILY 06/23/23 [History] Unk Vitamin A 1 tab PO DAILY 06/23/23 [History] Unk Vitamin C 1 tab PO DAILY 06/23/23 [History] Unk Vitamin D3 1 tab PO BID 06/23/23 [History] Unk Zinc 1 tab PO BID 06/23/23 [History] Vitamin B12 1 tab PO DAILY 06/23/23 [History] Metoprolol Succinate [Metoprolol Succinate ER] 12.5 mg PO DAILY #0 06/28/23 [Rx] Nicotine 14Mg/24Hr Patch [Habitrol] 1 patch TRANSDERM DAILY PRN 01/24/24 [History] Nitroglycerin Sl Tabs [Nitrostat] 0.4 mg SL Q5M PRN 01/24/24 [History] Pregabalin [Lyrica] 50 mg PO BID 01/24/24 [History] Follow up Appointment(s)/Referral(s): Axel Abrams MD [Primary Care Provider] - 1-2 days Sheng Charles MD [STAFF PHYSICIAN] - 1 Week Discharge Disposition: HOME SELF-CARE
[2024-01-24 16:30] VITALS: BP 138/68; PULSE 59; TEMP 97.5
[2024-01-24] MEDS ORDERED: ATORVASTATIN 80 MG TAB PO SCH (21:00)
[2024-01-25] MEDS ORDERED: REGADENOSON 0.4 MG/5 ML SYRINGE IV PRN (07:00)
[2024-01-25] MEDS ORDERED: AMINOPHYLLINE 500 MG/20 ML VIAL IV PRN (07:00)
[2024-01-25] MEDS ORDERED: CAFFEINE CITRATE 60 MG/3 ML VIAL IV PRN (07:00)
--- NOTE | 2024-01-25 07:28 | CA ---
Stress Echo Report Marleen Malcolm Age: 53 Gender: F : 1970 Exam Date: 01/24/2024 11:27 Exam Location: [facility] Ht (in): 64 Wt (lb): 140 Ordering Physician: Petrona Hudson Referring Physician: [id number] Chief Learning Officer: Triny Davis RDCS Technologist Procedure CPT: Indication: CP ICD-9 Codes: Rhythm: Patient History: CHEST PAIN, DIFFICULTY IN BREATHING, ANGINA, HYPERCHOLESTEROLEMIA, FHX OF HEART DISEASE, CURRENT SMOKER 1 PPD X 40 YEARS, PRIOR PA, PRIOR CATH, PRIOR CARDIAC STENTS Cardiac Medications: Medications in past 24 hours: Contrast: Stress Results Protocol: Jaren Total dose(mL): Exercise Duration (min:sec): 9:[address] Depression (mm): Angina Score: Adan Score: METS: 10.5 Resting HR: 61 Resting BP: 118 / 53 Peak HR: 116 Peak BP: 190 / 69 Max Predicted HR: 169 69 % Max Predicted HR Target HR: 144 Double Product: [id number] Stress Summary: BP Response: Reason for Termination: MAX EXERTION Cardiac Symptoms: CHEST PRESSURE ECG Analysis Resting ECG: Stress ECG: Arrhythmia: Echo Analysis Resting Echo: Peak Echo Analysis: MEASUREMENTS (Male/Female) Normal Values CONCLUSIONS Excellent exercise tolerance The patient achieved only 69% of maximum predicted heart rate Normal electrocardiogram and echocardiogram up to the level of heart rate achieved which is only 69% of maximum predicted heart rate Overall nondiagnostic stress echocardiogram Dr. Sheng Charles MD (Electronically Signed) Final Date: 25 January 2024 07:27
--- NOTE | 2024-01-25 07:29 | CA ---
Transthoracic Echo Report Name: Marleen Malcolm Age: 53 Gender: F : 1970 Exam Date: 01/24/2024 11:46 Exam Location: [facility] Ht (in): 63 Wt (lb): 140 Ordering Physician: Petrona Hudson Attending/Referring Phys: [id number], Becca Finisher Screwdown Triny Davis, MANDI Procedure CPT: Indications: LV function,CP Cardiac Hx: Technical Quality: Good Contrast 1: Total Dose (mL): Contrast 2: Total Dose (mL): MEASUREMENTS (Male / Female) Normal Values 2D ECHO LV Diastolic Diameter PLAX 4.5 cm 4.2 - 5.9 / 3.9 - 5.3 cm LV Systolic Diameter PLAX 3.1 cm IVS Diastolic Thickness 1.1 cm 0.6 - 1.0 / 0.6 - 0.9 cm LVPW Diastolic Thickness 1.0 cm 0.6 - 1.0 / 0.6 - 0.9 cm LV Relative Wall Thickness 0.5 RV Internal Dim ED PLAX 2.0 cm LA Systolic Diameter LX 3.8 cm 3.0 - 4.0 / 2.7 - 3.8 cm LV Diastolic Volume MOD BP 60.4 cm??? 67 - 155 / 56 - 104 cm??? LV Systolic Volume MOD BP 20.8 cm??? 22 - 58 / 19 - 49 cm??? LV Ejection Fraction MOD BP 65.6 % >= 55 % LV Cardiac Index MOD BP 1240.8 cm???/min???m??? LV Diastolic Volume MOD 4C 62.8 cm??? LV Systolic Volume MOD 4C 27.2 cm??? LV Ejection Fraction MOD 4C 56.7 % LV Cardiac Index MOD 4C 1116.3 cm???/min???m??? LV Diastolic Length 4C 7.6 cm LV Systolic Length 4C 6.7 cm LV Diastolic Volume MOD 2C 49.8 cm??? LV Systolic Volume MOD 2C 12.3 cm??? LV Ejection Fraction MOD 2C 75.4 % LV Cardiac Index MOD 2C 1177.9 cm???/min???m??? LV Diastolic Length 2C 6.5 cm LV Systolic Length 2C 5.0 cm M-MODE Aortic Root Diameter MM 3.1 cm LA Systolic Diameter MM 3.5 cm LA Ao Ratio MM 1.1 AV Cusp Separation MM 1.7 cm DOPPLER AI Peak Velocity 450.7 cm/s AI Peak Gradient 81.3 mmHg AI Pressure Half Time 631.2 ms Mitral E Point Velocity 107.9 cm/s Mitral A Point Velocity 74.5 cm/s Mitral E to A Ratio 1.4 MV Deceleration Time 267.1 ms MV E' Velocity 7.9 cm/s Mitral E to MV E' Ratio 13.7 TR Peak Velocity 255.0 cm/s TR Peak Gradient 26.0 mmHg Right Ventricular Systolic Press 31.1 mmHg FINDINGS Left Ventricle Left ventricular ejection fraction is estimated at 55-60%. Mildly increased septal wall thickness. Mildly increased posterior wall thickness. Normal left ventricular systolic function with no obvious regional wall motion abnormalities. Left ventricular cavity size normal. Right Ventricle Normal right ventricular size and function. Right ventricular systolic pressure within normal limits. Right Atrium Normal right atrial size. Left Atrium Normal left atrial size. Mitral Valve Structurally normal mitral valve. Mild mitral regurgitation. No mitral stenosis. Aortic Valve Trileaflet aortic valve. No aortic stenosis. Trace to mild aortic regurgitation. Tricuspid Valve Structurally normal tricuspid valve. Mild tricuspid regurgitation. Pulmonic Valve Structurally normal pulmonic valve. Trace pulmonic regurgitation. No pulmonic stenosis. Pericardium No pericardial or pleural effusion. Aorta Normal size aortic root and proximal ascending aorta. CONCLUSIONS Normal biventricular systolic function Mild aortic regurgitation Previewed by: Dr. Sheng Charles MD (Electronically Signed) Final Date: 25 January 2024 07:28
--- NOTE | 2024-01-25 07:31 | CA ---
Lexiscan Nuclear Stress Test Report Name: Marleen Malcolm Exam Date: 01/24/2024 13:05 Exam Location: [facility] Ht (in): 64 Wt (lb): 140 BSA: 1.68 Ordering Phys: Petrona Hudson Referring Phys: JASKARAN,, Technologist: Leodan Benton Age: 53 Gender: F : 1970 Procedure CPT: Indications: Reflex order-Stress test ICD-10 Codes: Patient History: Medications: SEE CHART Meds past 24 hrs: Pretest Chest Pain: STRESS TEST Lexiscan Protocol Exercise Duration (min:sec): 02:[address] Depressions (mm): Angina Score: Adan Score: Resting HR (bpm): 45 Peak HR (bpm): 99 Resting BP (mmHg): 147 / 64 Peak BP (mmHg): 172 / 65 MPHR: 169 Target HR: 144 % MPHR: 59 METS: 1.0 Total Dose: Peak Dose: Atropine: Double Product: [id number] BP Response: Stress Termination: INFUSION COMPLETE Stress Symptoms: CHEST PAIN GOT BETTER AFTER A FEW MINUTES Stress Summary: ECG ANALYSIS Resting ECG: Stress ECG: CONCLUSIONS Nondiagnostic electrocardiogram stress test Dr. Sheng Charles MD (Electronically Signed) Final Date: 25 January 2024 07:31
== END 2024-01-24 17:08 | disposition home or self-care (01) ==
LOC: EC 19:29 → 6NMEDSUR 21:11
PROVIDERS: ADMIT Hospitalist; ATTEND Hospitalist
DX: R07.2 Precordial pain (principal); I25.111 Atherosclerotic heart disease of native coronary artery with angina pectoris with documented spasm; I11.0 Hypertensive heart disease with heart failure; I50.9 Heart failure, unspecified; I08.3 Combined rheumatic disorders of mitral, aortic and tricuspid valves; T82.855A Stenosis of coronary artery stent, initial encounter; M54.9 Dorsalgia, unspecified; F17.210 Nicotine dependence, cigarettes, uncomplicated; R00.1 Bradycardia, unspecified; E78.5 Hyperlipidemia, unspecified; K21.9 Gastro-esophageal reflux disease without esophagitis; Z79.02 Long term (current) use of antithrombotics/antiplatelets; Z79.82 Long term (current) use of aspirin; Z79.899 Other long term (current) drug therapy; Z88.5 Allergy status to narcotic agent; Z11.52 Encounter for screening for COVID-19; Z11.59 Encounter for screening for other viral diseases; I25.2 Old myocardial infarction; Z95.5 Presence of coronary angioplasty implant and graft; Z87.11 Personal history of peptic ulcer disease
CPT/HCPCS: 36415; 71046; 78452; 80053; 83735; 84484; 85025; 85610; 85730; 87636; 93005; 93017; 93306; 93351; 96372; 99285

== ENCOUNTER → 2024-03-02 | Outpatient (CLI) | payer OTHER ==
[2024-03-02 14:58] LABS: HCT 41.9 % (37.2-46.3); MCH 30.4 pg (27.0-32.0); MCHC 33.4 g/dL (32.0-37.0); MCV 91.1 FL (80.0-97.0); Mean Platelet Volume 10.8 FL (9.5-12.2); NRBC Per 100 WBC 0 X 10*3/uL (0.00-0.01); Platelet Count 164 X 10*3/uL (140-440); RDW 12.4 % (11.5-14.5)
[2024-03-02 16:53] LABS: Chloride 107 mmol/L (96-109); Potassium 3.9 mmol/L (3.5-5.5); Sodium 142 mmol/L (135-145)
== END | disposition home or self-care (01) ==
LOC: LABPAT 07:45
PROVIDERS: ATTEND Internal Medicine Interventional Cardiology
DX: Z01.812 Encounter for preprocedural laboratory examination (principal); I25.10 Atherosclerotic heart disease of native coronary artery without angina pectoris
CPT/HCPCS: 80051; 82565; 84520; 85027

== ENCOUNTER 2024-03-05 05:53 | Day surgery (SDC) | payer OTHER ==
[2024-03-05] MEDS ORDERED: HEPARIN SODIUM,PORCINE 10,000 UNIT in SODIUM CHLORIDE 0.9% 1,000 ML IRRIGATION PRN (06:04)
[2024-03-05] MEDS ORDERED: ALPRAZolam 0.25 MG TAB PO PRN (06:04)
[2024-03-05] MEDS ORDERED: ALPRAZolam 0.5 MG TAB PO PRN (06:04)
[2024-03-05] MEDS ORDERED: HEPARIN SODIUM,PORCINE (1 ML) 2,500 UNIT in SODIUM CHLORIDE 0.9% 250 ML IRRIGATION PRN (06:04)
[2024-03-05] MEDS ORDERED: NITROGLYCERIN SL TABS 0.4 MG TAB SUBLINGUAL PRN (06:04)
[2024-03-05] MEDS: IV FLUID CONTINUATION 1,000 ML IV ONE (06:05)
[2024-03-05] MEDS: SODIUM CHLORIDE 0.9% 1,000 ML in EMPTY BAG 1 BAG IV SCH (06:05)
[2024-03-05 06:20] LABS: Basophils % (A) 0 %; Eosinophils # (A) 0.3 k/uL (0-0.7); Eosinophils % (A) 3 %; HCT 42.2 % (34.0-46.0); Lymphocytes # (A) 2.5 k/uL (1.0-4.8); Lymphocytes % (A) 24 %; MCH 30.1 pg (25.0-35.0); MCHC 33.1 g/dL (31.0-37.0); MCV 91.1 fL (80.0-100.0); Mean Platelet Volume 7.6; Monocytes # (A) 0.5 k/uL (0-1.0); Monocytes % (A) 5 %; Neutrophils # (A) 6.8 k/uL (1.3-7.7); Neutrophils % (A) 66 %; Platelet Count 152 k/uL (150-450); RBC 4.63 m/uL (3.80-5.40); RDW 12.2 % (11.5-15.5); WBC 10.3 k/uL (3.8-10.6)
[2024-03-05 06:32] LABS: African American GFR (CKD) >90 (>60 ml/min/1.73 sqM); Anion Gap 4 mmol/L; Blood Urea Nitrogen 20 mg/dL (7-17); Calcium 9.1 mg/dL (8.4-10.2); Carbon Dioxide 25 mmol/L (22-30); Chloride 110 mmol/L (98-107); Glucose 93 mg/dL (74-99); Non-African American GFR(CKD) >90 (>60 ml/min/1.73 sqM); Potassium 4.1 mmol/L (3.5-5.1); Sodium 139 mmol/L (137-145)
[2024-03-05] MEDS: HEPARIN SODIUM,PORCINE 10,000 UNIT in SODIUM CHLORIDE 0.9% 1,000 ML IRRIGATION ONE (07:22)
[2024-03-05] MEDS: HEPARIN SODIUM,PORCINE (1 ML) 2,500 UNIT in SODIUM CHLORIDE 0.9% 250 ML IRRIGATION ONE (07:22)
[2024-03-05] MEDS: MIDAZOLAM 2 MG/2 ML VIAL IVP ONE ×2 (07:28→07:45)
[2024-03-05] MEDS: LIDOCAINE 1% INJ 10MG/ML (20 ML MDV) SQ ONE (07:30)
[2024-03-05] MEDS: fentaNYL (PF) 50 MCG/ML 2 ML AMP IVP ONE ×2 (07:33→07:39)
[2024-03-05] MEDS: VERAPAMIL SYRINGE (5 MG/10 ML) INTRAARTER ONE (07:36)
[2024-03-05] MEDS: NITROGLYCERIN SL TABS 0.4 MG TAB SUBLINGUAL ONE (07:39)
[2024-03-05] MEDS: NITROGLYCERIN 1000MCG/10ML SYRINGE INTRACORON ONE (07:50)
[2024-03-05] MEDS: HEPARIN SODIUM 1,000 UN/ML (10ML VL) IVP ONE (07:54)
[2024-03-05] MEDS: IOPAMIDOL-300 100ML BTL INJ ONE (08:03)
[2024-03-05] MEDS ORDERED: RX INFO: IV CONTRAST WAS GIVEN 1 EACH MISC MISCELLANE PRN (08:09)
--- NOTE | 2024-03-05 08:14 | P.PCN ---
Date of Procedure: 03/05/24 Operative Findings: CARDIAC CATHETERIZATION PERFORMING PHYSICIAN: Sheng Charles MD, RPVI PROCEDURE PERFORMED: 1. Selective right and left coronary angiogram and left heart catheterization 2. IFR of the RCA 3. Ultrasound-guided access of the right common femoral artery and selective right common femoral artery angiogram and ultrasound-guided access of the right radial artery INDICATION: Unstable angina COMPLICATION: None APPROACH: Right common femoral artery LEVEL OF SEDATION: Moderate with sedation in length of 34 minutes PROCEDURE DESCRIPTION: After obtaining an informed consent, the patient was brought to cardiac pipelines laborer. Local anesthesia was performed using lidocaine subcutaneously. The right common femoral artery was cannulated using micropuncture technique under ultrasound guidance, the guidewire passed easily, following that we advanced a 6 Andorran sheath dilator assembly, the wire and dilator were removed and sheath was flushed. Selective right and left coronary angiogram using a 6-Andorran JR4 and JL catheters. Following that we did left heart catheterization using 6-Andorran pigtail catheter. Please note that initially we attempted accessing the right radial artery and right radial artery was accessed using micropuncture technique under ultrasound guidance a micropuncture wire passed easily but I could not advance the catheter because of severe vasospasm. After the heart catheterization was performed we decided to do an IFR of the RCA. After zeroing the Doppler wire and equalizing between the Doppler wire and guiding catheter which was JR 3.5 guiding catheter short the RCA was engaged and subsequently wired. We did IFR and that came to be at 0.97 The procedure was completed there was no complication. SELECTIVE CORONARY ANGIOGRAM: The right coronary artery: Large-caliber vessel and a dominant vessel with intermediate lesion involving the proximal portion. I did IFR and that came in to be nonflow limiting. The RCA in the midportion is stented and the stent is patent Left main: Has mild disease only The left circumflex: Large caliber vessel. The proximal LCx is stented and the stent is patent. The LCx in the mid to distal portion has mild disease. Gives rise into an OM1 which has an ostial lesion appears to be in the range of 80% but the artery is only 2 mm in diameter The left anterior descending artery: The LAD is a large-caliber vessel with mild to moderate diffuse disease noted. HEMODYNAMICS: The LVEDP was 9 mmHg with no significant gradient across aortic valve CONCLUSION: 1. Intermediate lesion involving the proximal RCA documented to be nonflow limiting by Doppler wire 2. Severe disease involving the ostial of first obtuse marginal branch which is about 2 mm in diameter coming from large LCx 3. Normal left-sided filling pressure POSTPROCEDURE MANAGEMENT: Medical treatment
[2024-03-05] MEDS: SODIUM CHLORIDE 0.9% 1,000 ML IV SCH (08:20)
[2024-03-05] MEDS: MORPHINE SULFATE 2 MG/ML SYRINGE IVP PRN (10:04)
[2024-03-05] MEDS: ATORVASTATIN 80 MG TAB PO STA (10:16)
[2024-03-05] MEDS: ASPIRIN 325 MG TAB PO STA (10:16)
[2024-03-05] MEDS: MORPHINE SULFATE 2 MG/ML SYRINGE IVP STA (11:28)
[2024-03-05 12:58] VITALS: RESP 16; TEMP 98.2
[2024-03-05 16:39] VITALS: BP 130/76; PULSE 52
== END 2024-03-05 18:22 | disposition home or self-care (01) ==
LOC: CATHCVL 05:53 → 6NMEDSUR 08:02 → CATHCVL 18:22
PROVIDERS: ATTEND Internal Medicine Interventional Cardiology
DX: I25.119 Atherosclerotic heart disease of native coronary artery with unspecified angina pectoris (principal); I10 Essential (primary) hypertension; E78.5 Hyperlipidemia, unspecified; F17.200 Nicotine dependence, unspecified, uncomplicated; I38 Endocarditis, valve unspecified; Z88.6 Allergy status to analgesic agent; Z88.5 Allergy status to narcotic agent; Z79.82 Long term (current) use of aspirin; Z79.899 Other long term (current) drug therapy
CPT/HCPCS: 80048; 85025; 93458; J2250; J1644 ×3; J2003; J3010; J2270; Q9967; J2305; 93799

== ENCOUNTER → 2024-09-19 | Outpatient (CLI) | payer OTHER ==
[2024-09-19 10:40] LABS: ALT 23 U/L (8-44); AST 23 U/L (13-35); Chol/HDL Ratio 1.85 Ratio; LDL Cholesterol,Calculated -1.3 mg/dL (0.0-131.0)
== END | disposition home or self-care (01) ==
LOC: LABWHC1 07:17
PROVIDERS: ATTEND Internal Medicine Interventional Cardiology
DX: E78.2 Mixed hyperlipidemia (principal)
CPT/HCPCS: 36415; 80061; 84450; 84460